=== PATIENT | female | born 1945 | race Caucasian/White ===

== ENCOUNTER 2017-10-18 01:10 | Inpatient (IN) ==
[2017-10-18] MEDS ORDERED: Gadolinium Contrast Agent (WT Based) IV PRN (03:38)
--- NOTE | 2017-10-18 03:40 | Event Note ---
Date of Encounter: 10/18/17 Time of Encounter: 03:40 Patient was seen and examined. I agree with the Resident Physician's H&P as written. Briefly, patient is a 72 yo f with history of CAD, HTN, CVA, COPD who presented to the ED at [place] [address] over the last 24 hours. First time left AMA and came back for persistent symptoms. Patient has been dealing with vague lower abdominal pain associated with n/v/diarrhea. In the ED there, she was hemodynamically stable but labs came back showing hyponatremia with Na of 125, K 2.5 and abnormal LFTs (ALT 955, AST 1669, Alk phos 258, total bili 7.7, direct bili 6.5), lipase 216, Creatinine .67, BUN 6, WBC 8, hgb 13,6, Plt 305 CT abd/pelvis with cont showed 2.7 x 17 cm mass arising from the superior portion of the right kidney, 1.1 x .8 cm mass arising from the posterior lateral aspect of he right kidney. Several small to moderately sized simple appearing cyst arising elsewhere within the kidneys bilaterally, 2.0 x 1.8 cm soft tissue mass lying anterior to splenic vein, 1.5 x 1.2 cm nodule lying in the left upper abdomen immediately posterior to the liver, several prominent lymph nodes in the abdomen, small bowel findings suspecting gastroenteritis, prominence of he endometrium of the uterus. The patient is A/O x3 but she doesnt seem to have a grasb of what is going on She is jaundiced and she doesn't think she is and has not noticed that she was RRR, S1, S2, right 2nd IC systolic murmur CTAB abdomen is soft, Not tender, No masses felt, +BS Trace LE edema, 2+DP Nonfocal Admit to hospitalist for abnormal LFTs/hyponatremia/hypokalmeia/abnormal CT. MRI abdomen liver/Renal protocol c/s GI c/s urology for renal mass check stool panel IVF. I think some of those abnormal electrolytes and transaminitis are due to a component of dehydration. Anti-emetics Check tumor markers (CEA, AFP, Ca 125, CA 19-9) Transvaginal US Repeat labs and replete electrolytes as needed ESR/CRP Hepatitis panel. tylenol level wasn't elevated at [facility].
--- NOTE | 2017-10-18 03:54 | Internal Med History&Physical ---
Date of Encounter: 10/18/17 Time of Encounter: 03:30 Internal Medicine - H&P: HPI Chief complaint: Nausea Admitted From: Intrahospital Transfer Plans for Post Hospital Care: Transfer [facility] Facility History of present illness: Ms. Thayer is a 72 year old female PMHx multiple cardiac caths, ASHD, bilateral ligation and division offallopian tubes, COPD, CVA, cataracts, cholecystectomy, diverticulitis, GERD, HTN, [place], PND presented to [facility] for worsening nausea. She had denied f/c/v/diarrhea, constipation, CP, SOB, dysuria. Lab work demonsrated elevated hepatic transaminases, bilirubin, hyponatremia, hypokalemia. A CT abd and pelvis demonstrated multiple renal masses and soft tissue masses in the abdomen, also possible viral gasroenteritis. MRI of kidneys was recommended for further evaluation.There was also prominence of the endometrium and ultrasound for further evaluation was needed. Patient was transferred to [facility] for further eval and testing. She currently states that her nausea has improved. She reports that she is asymptomatic, denied QUIROGA, CP, SOB, f/c/n/v/d/c. Denied weakness or loss of sensation. Reports that she has never had hepatitis in the past. Confirms PMHx. Patient has poor insight. Past Med Surg Social Fam HX - Family History Mother Hx Family Cardiac Disorders: Yes Father Hx Family Cardiac Disorders: Yes Internal Medicine - H&P: Meds 3 Allergy/AdvReac Type Severity Reaction Status Date / Time codeine AdvReac Rash Verified 10/18/17 05:33 All Systems PM: A 10-system review of systems was performed and is negative for pertinent findings except as documented above in the HPI. - Constitutional Constitutional: no chills, no fever(s), no night sweats - EENT Eyes: no change in vision, no discharge, no pain, no photophobia Ears: no ear discharge, no ear pain, no tinnitus Nose, mouth and throat: no dysphagia, no nasal discharge, no neck pain, no sore throat - Cardiovascular Cardiovascular ROS IM: no chest pain, no palpitations - Respiratory Respiratory: no cough, no dyspnea, no wheezing, no excessive phlegm production - Gastrointestinal Gastrointestinal: nausea, no abdominal pain, no diarrhea, no hematemesis, no hematochezia, no melena, no vomiting - Genitourinary Genitourinary: no change in urinary stream, no dysuria, no flank pain, no hematuria - Musculoskeletal Musculoskeletal ROS IM: no numbness, no tingling - Integumentary Integumentary IM: no rash, no unusual bruising - Neurological Neurological ROS: no confusion, no convulsions, no focal weakness, no numbness, no tingling, no tremor(s) - Psychiatric Psychiatric: no hallucinations Additional comments: poor insight. - Hematologic/Lymphatic Hematologic/Lymphatic: no easy bruising - Constitutional Vitals: Temp Pulse Resp BP Pulse Ox 98.7 F 78 16 117/64 96 10/18/17 03:44 10/18/17 03:44 10/18/17 03:44 10/18/17 03:44 10/18/17 03:44 General appearance: Present: cachectic, A&O X 3, no acute distress - Head Head exam: Present: atraumatic, normocephalic - Eye Eye exam: Present: scleral icterus, conjuntiva pink, sclera anicteric - Neck Neck exam general surgery: Present: supple, trachea midline. Absent: lymphadenopathy - Respiratory Respiratory exam: Present: decreased breath sounds. Absent: accessory muscle use, rales, rhonchi, wheezes - Cardiovascular Cardiovascular exam: Present: distant heart sounds, +S1, +S2, systolic murmur. Absent: diastolic murmur, gallop, rubs - GI/Abdominal GI/Abdominal exam: Present: hypoactive bowel sounds, normal bowel sounds, soft, no peritoneal signs. Absent: distended, tenderness - Extremities Exam Extremities exam: Present: warm, radial pulses palpable and symmetrical. Absent : calf tenderness, cyanotic, pedal edema - Neurological Exam Neurological exam: Present: oriented X3, reflexes normal, no focal deficits, strengths equal and symetr throughout. Absent: pronater drift, facial droop, speech deficit - Psychiatric Additional comments: Poor insight - Skin Skin exam: Present: dry, intact Additional comments: jaundice Internal Med - H&P Results - Labs CBC & Chem 7: 10/18/17 04:13 - Assessment and plan (1) Nausea Current Visit: Yes Status: Acute Assessment and plan: 72F with multiple visits to ED for nausea. Hx of HTN, CVA, CAD. CT with cystic findings on right kidney, soft tissue mass lying on anterior splenic vein, nodule at left upper abdomen posterior to the liver, abdominal lymph nodes, prominent uterus. CBC, CMP, hep panel, CRP/ESR, GI panel pending. GI consult, Urology consult pending. MRI abdomen w/wo contrast and transvaginal u/s pending for further evaluation Tumor markers pending Continue IVF and NPO for now Pain management as appropriate. (2) Abnormal CT of the abdomen Current Visit: Yes Status: Acute Assessment and plan: CT abd/pelvis with cont showed 2.7 x 17 cm mass arising from the superior portion of the right kidney, 1.1 x .8 cm mass arising from the posterior lateral aspect of he right kidney. Several small to moderately sized simple appearing cyst arising elsewhere within the kidneys bilaterally, 2.0 x 1.8 cm soft tissue mass lying anterior to splenic vein, 1.5 x 1.2 cm nodule lying in the left upper abdomen immediately posterior to the liver, several prominent lymph nodes in the abdomen, small bowel findings suspecting gastroenteritis, prominence of the endometrium of the uterus. Pending Urology and GI consult. Recommendations appreciated. (3) Transaminitis Current Visit: Yes Status: Acute Assessment and plan: Patient is jaundice with scleral icterus. Possibly due to dehydration vs malignancy. Pending lab work and imaging. Monitor with CMP and continue IVF Treat per above. (4) HTN (hypertension) Current Visit: Yes Status: Acute Assessment and plan: Continue medication when available Qualifiers: Qualified Code(s): I10 - Essential (primary) hypertension (5) CAD (coronary artery disease) Current Visit: Yes Status: Acute Assessment and plan: History of [place] with multiple cardiac caths. Reconcile home medications when available Qualifiers: Coronary Disease-Associated Artery/Lesion type: unspecified vessel or lesion type Associated angina: angina presence unspecified Qualified Code(s): I25.10 - Atherosclerotic heart disease of [place] coronary artery without angina pectoris (6) History of CVA (cerebrovascular accident) Current Visit: Yes Status: Acute Assessment and plan: Reconcile home Plavix as appropriate when lab work returns. (7) Hyponatremia Current Visit: Yes Status: Acute Assessment and plan: Reported hyponatremia from [facility]. Pending AM Labs with serum osm to confirm. Continue IVF (8) Hypokalemia Current Visit: Yes Status: Acute Assessment and plan: same as above (9) DVT prophylaxis Current Visit: Yes Status: Acute Assessment and plan: SCDs - Time Spent With Patient Total time spent is greater than 50% in coordination of care (as documented) at patient's floor/unit and/or counseling patient: Greater than 35 minutes
[2017-10-18] MEDS ORDERED: Ondansetron 4 MG/2 ML VIAL IVP PRN (04:35)
[2017-10-18] MEDS ORDERED: Acetaminophen 325 MG TABLET PO PRN (04:37)
[2017-10-18] MEDS ORDERED: Naloxone 0.4 MG/ML INJ IVP PRN (04:37)
[2017-10-18] MEDS ORDERED: 0.9 % Sodium Chloride 1,000 ML IVC SCH (04:45)
[2017-10-18 05:05] LABS: Basophils % 0.6 %; Eosinophils # 0.1 K/mcL (0.0-0.6); Eosinophils % 1.3 %; Hematocrit 34.4 % (35.3-44.9); Hemoglobin 12.6 g/dL (11.5-15.4); Immature Granulocytes % 0.6 % (0-4); Lymphocytes # 1.3 K/mcL (0.6-4.6); Lymphocytes % 19.7 %; Mean Corpuscular HGB Conc 36.6 g/dL (31.6-35.5); Mean Corpuscular Hemoglobin 31.5 pg (28.0-33.3); Mean Platelet Volume 10.3 fL (9.4-12.4); Monocytes # 0.6 K/mcL (0.0-1.3); Monocytes % 9.5 %; Neutrophils # 4.6 K/mcL (1.6-8.9); Platelet Count 288 K/mcL (140-400); Red Cell Distribution Width 15.4 % (11.5-14.5); Segmented Neutrophils % 68.3 %
[2017-10-18 05:06] LABS: INR 1.2; Prothrombin Time 13.4 Seconds (9.4-12.1)
[2017-10-18 05:09] LABS: Activated Partial Thrombo Time 29.2 Seconds (26.0-36.0)
[2017-10-18 05:38] LABS: Alanine Aminotransferase > 500 Units/L (7-52); Albumin 2.7 g/dL (3.5-5.7); Albumin/Globulin Ratio 0.6 (1.1-2.2); Alkaline Phosphatase 202 Units/L (34-104); Aspartate Amino Transferase 965 Units/L (13-39); BUN/Creatinine Ratio 8 (6-26); Bilirubin,Direct 5.5 mg/dL (0.0-0.2); Bilirubin,Indirect 1.7 mg/dL (0.0-1.2); Bilirubin,Total 7.2 mg/dL (0.3-1.0); Blood Urea Nitrogen 4 mg/dL (8-23); C-Reactive Protein 12 mg/L (Less than 10); Calcium 7.9 mg/dL (8.6-10.3); Carbon Dioxide 28 mEq/L (23-29); Chloride 94 mEq/L (98-107); Globulin 4.2 g/dL (2.4-3.5); Glucose 105 mg/dL (70-105); Osmolality,Calculated 263 (280-300); Potassium 2.6 mEq/L (3.5-5.1); Sodium 128 mEq/L (136-145); Total Protein 6.9 g/dL (6.4-8.9); eGFR For African Americans > 60 (> 60); eGFR For Non-African Americans > 60 (> 60)
[2017-10-18 05:41] LABS: Carcinoembryonic Antigen 1.8 ng/mL (Less than 5.0)
[2017-10-18 06:35] LABS: Hepatitis A Antibody IgM Nonreactive (Nonreactive); Hepatitis B Core IgM Nonreactive (Nonreactive); Hepatitis B Surface Antigen Nonreactive (Nonreactive); Hepatitis C Virus Antibody Nonreactive (Nonreactive)
[2017-10-18] MEDS: 0.9 % Sodium Chloride 1,000 ML IVC SCH ×2 (06:48→14:36)
[2017-10-18] MEDS ORDERED: Potassium Chloride 40 MEQ, Lidocaine 1% 2 ML in D5% in Water 500 ML IVPB ONE ×2 (06:53→17:21)
[2017-10-18] MEDS: amLODIPine 5 MG TABLET PO SCH (08:33)
[2017-10-18] MEDS: clonazePAM 0.5 MG TABLET PO SCH ×2 (08:33→23:05)
--- NOTE | 2017-10-18 10:30 | Urology - Consult Note ---
Date of Encounter: 10/18/17 Time of Encounter: 10:29 - Assessment and Plan (1) Bilateral renal masses Current Visit: Yes Status: Acute Assessment and plan: I personally reviewed the CT images provided from the outside facility. The study was performed with IV contrast but did not have non-contrast images for comparison and assessment for enhancement. In addition there were multiple renal cysts which appeared simple. The lesions mentioned on the CT report were seen but I am not convinced at this time that they are collections representative of malignancy. I agree with the recommendation for an MRI with and without IV contrast. This appears to have been ordered. Further recommendations will be provided once this is completed. Urology CN:HPI Consult date: 10/18/17 History of present illness: 72-year-old female transferred from [facility]. hx multiple cardiac caths , ASHD, COPD, CVA, cataracts, cholecystectomy, diverticulitis, GERD, HTN, [place], PND presented to [facility] for worsening nausea. CT scan was performed that showed questionable bilateral renal masses. Patient has no known knowledge of these lesions. Poor historian. Past Med Surg Social Fam HX - Past Medical History Medical history: COPD, CVA, hyperlipidemia, hypertension Psychiatric history: no psych history - Social History Smoking Status: Former smoker Smokeless Tobacco Status: No Alcohol use: none Drug use: none - Family History Mother Hx Family Cardiac Disorders: Yes Father Hx Family Cardiac Disorders: Yes Medications and Allergies Atenolol [Tenormin] 12.5 mg PO DAILY 10/18/17 [History] Atorvastatin [Lipitor] 40 mg PO HS 10/18/17 [History] Chlorthalidone 25 mg PO DAILY 10/18/17 [History] Clopidogrel [Plavix] 75 mg PO DAILY 10/18/17 [History] Loratadine [Allergy Relief] 10 mg PO DAILY 10/18/17 [History] Magnesium Oxide [Magnesium] 250 mg PO DAILY 10/18/17 [History] Nitroglycerin [Nitrostat] 0.4 mg SL Q5M PRN 10/18/17 [History] Potassium Chloride [K-Tab ER] 20 meq PO BID 10/18/17 [History] amLODIPine [Norvasc] 5 mg PO DAILY 10/18/17 [History] clonazePAM [Klonopin] 1 mg PO BID 10/18/17 [History] 3 Allergy/AdvReac Type Severity Reaction Status Date / Time codeine AdvReac Rash Verified 10/18/17 05:33 Review of Systems ROS unobtainable: due to mental status - Constitutional no fever(s) - Gastrointestinal nausea, no abdominal pain - Genitourinary Genitourinary: no hematuria Exam Initial Vital Signs Temp Pulse Resp BP Pulse Ox 98.7 F 78 16 117/64 96 10/18/17 03:44 10/18/17 03:44 10/18/17 03:44 10/18/17 03:44 10/18/17 03:44 - General physical appearance Present: no distress, chronically ill - Eyes Present: PERRL, normal ocular movement - ENT Present: normal nares - Neck Present: no masses, no lymphadenopathy - Respiratory Present: normal respiratory effort - Cardiovascular Cardiovascular exam IM: RRR - Abdomen Abdomen: Present: soft. Absent: masses, suprapubic tenderness - Integumentary Present: no rash, no abnormal pigmentation - Neurologic Present: normal coordination, disoriented - Additional Findings Patient seems to be poor historian. Unable to provide a detailed history regarding current issue. Able to state her name but not the current date. Urology Results - Labs 10/18/17 04:13 10/18/17 04:13 Abnormal lab results Hct 34.4 % (35.3-44.9) L 10/18/17 04:13 MCHC 36.6 g/dL (31.6-35.5) H 10/18/17 04:13 RDW 15.4 % (11.5-14.5) H 10/18/17 04:13 ESR 24 mm/hr (0-15) H 10/18/17 04:13 PT 13.4 Seconds (9.4-12.1) H 10/18/17 04:13 Sodium 128 mEq/L (136-145) L 10/18/17 04:13 Potassium 2.6 mEq/L (3.5-5.1) L 10/18/17 04:13 Chloride 94 mEq/L (98-107) L 10/18/17 04:13 BUN 4 mg/dL (8-23) L 10/18/17 04:13 Creatinine 0.50 mg/dL (0.60-1.20) L 10/18/17 04:13 Serum Osmolality 267 mOsm/kg (280-300) L 10/18/17 05:38 Calculated Osmolality 263 (280-300) L 10/18/17 04:13 Calcium 7.9 mg/dL (8.6-10.3) L 10/18/17 04:13 Total Bilirubin 7.2 mg/dL (0.3-1.0) H 10/18/17 04:13 Direct Bilirubin 5.5 mg/dL (0.0-0.2) H 10/18/17 04:13 Indirect Bilirubin 1.7 mg/dL (0.0-1.2) H 10/18/17 04:13 AST 965 Units/L (13-39) H 10/18/17 04:13 ALT > 500 Units/L (7-52) H 10/18/17 04:13 Alkaline Phosphatase 202 Units/L (34-104) H 10/18/17 04:13 C-Reactive Protein 12 mg/L (Less than 10) H 10/18/17 04:13 Albumin 2.7 g/dL (3.5-5.7) L 10/18/17 04:13 Globulin 4.2 g/dL (2.4-3.5) H 10/18/17 04:13 Albumin/Globulin Ratio 0.6 (1.1-2.2) L 10/18/17 04:13 Diabetes panel 10/18/17 Range/Units 04:13 Sodium 128 L (136-145) mEq/L Potassium 2.6 L (3.5-5.1) mEq/L Chloride 94 L (98-107) mEq/L Carbon Dioxide 28 (23-29) mEq/L BUN 4 L (8-23) mg/dL Creatinine 0.50 L (0.60-1.20) mg/dL Glucose 105 (70-105) mg/dL Calcium 7.9 L (8.6-10.3) mg/dL AST 965 H (13-39) Units/L ALT > 500 H (7-52) Units/L Alkaline Phosphatase 202 H (34-104) Units/L Albumin 2.7 L (3.5-5.7) g/dL Calcium panel 10/18/17 Range/Units 04:13 Calcium 7.9 L (8.6-10.3) mg/dL Albumin 2.7 L (3.5-5.7) g/dL Pituitary panel 10/18/17 Range/Units 04:13 Sodium 128 L (136-145) mEq/L Potassium 2.6 L (3.5-5.1) mEq/L Chloride 94 L (98-107) mEq/L Carbon Dioxide 28 (23-29) mEq/L BUN 4 L (8-23) mg/dL Creatinine 0.50 L (0.60-1.20) mg/dL Glucose 105 (70-105) mg/dL Calcium 7.9 L (8.6-10.3) mg/dL Adrenal panel 10/18/17 Range/Units 04:13 Sodium 128 L (136-145) mEq/L Potassium 2.6 L (3.5-5.1) mEq/L Chloride 94 L (98-107) mEq/L Carbon Dioxide 28 (23-29) mEq/L BUN 4 L (8-23) mg/dL Creatinine 0.50 L (0.60-1.20) mg/dL Glucose 105 (70-105) mg/dL Calcium 7.9 L (8.6-10.3) mg/dL Total Bilirubin 7.2 H (0.3-1.0) mg/dL AST 965 H (13-39) Units/L ALT > 500 H (7-52) Units/L Alkaline Phosphatase 202 H (34-104) Units/L Albumin 2.7 L (3.5-5.7) g/dL All other labs normal. Consult Discharge Plan - Plan Referrals: NONE,PCP [Primary Care Provider] -
--- NOTE | 2017-10-18 12:58 | Gastroenterology Consult Note ---
<Lucrecia Crump - Last Filed: 10/18/17 12:56> Date of Encounter: 10/18/17 Time of Encounter: 11:30 - Assessment and plan (1) Transaminitis Current Visit: Yes Status: Acute Assessment and plan: 72 year old female who presented with nausea and vomiting. She reports nausea is improved. She had CT abdomen which showed renal masses and soft tissue masses in the abdomen. She also has jaundice and elevated LFTs. She may have metastatic renal cancer with biliary obstruction. MRI abdomen is pending. Will discuss further recommendations with Dr Vann when MRi is resulted. - Time Spent With Patient Total time spent is greater than 50% in coordination of care (as documented) at patient's floor/unit and/or counseling patient: GI History of Present Illness - Data of Consult Patient: new to practice Consult date: 10/18/17 Requesting Physician: Kanu Palma - Consult Narrative Reason for consult: jaundice, elevated LFTs History of present illness: Ms. Thayer is a 72 year old female PMHx multiple cardiac caths, ASHD, COPD, CVA , cataracts, cholecystectomy, diverticulitis, GERD, HTN, [place], PND presented to [facility] for worsening nausea. She states nausea is now improved. She denies abdominal pain, diarrhea, constipation. States she has not had a BR since being admitted. She denies weight loss or noticing jaundice at home. She denies previous history of liver disease, ETOH, drug use. She states she takes tylenol only on occasion. She was found to be jaundice on exam, LFTs were elevated and t bili was 7.2. A CT abd and pelvis demonstrated multiple renal masses and soft tissue masses in the abdomen, also possible viral gasroenteritis. MRI of kidneys was recommended for further evaluation.There was also prominence of the endometrium and ultrasound for further evaluation was needed. Patient was transferred to [facility] for further eval and testing.Denied weakness or loss of sensation. Reports that she has never had hepatitis in the past. Confirms PMHx. Patient has poor insight. procedures: denies NSAIDS: denies Anticoagulants: plavix Past Med Surg Social Fam HX - Past Medical History Medical history: COPD, CVA, hyperlipidemia, hypertension Psychiatric history: no psych history - Social History Smoking Status: Former smoker Smokeless Tobacco Status: No Alcohol use: none Drug use: none - Family History Mother Hx Family Cardiac Disorders: Yes Father Hx Family Cardiac Disorders: Yes Review of Systems: GI: as per [place] [facility]: denies fever, has some chills EYES: denies yellow discoloration ENT: denies pain with swallowing or difficulty swallowing CARDIO: denies chest pain, palpitations RESP: Shortness of breath with exertion : denies change in color of urine NEURO: denies any weakness HEME: Denies any bruising MS: denies joint pain, joint swelling or back pain. DERM: denies rash or itching PSYCH: Denies history of anxiety or depression - Constitutional Vitals: Temp Pulse Resp BP Pulse Ox 97.9 F 76 18 103/61 96 10/18/17 11:43 10/18/17 11:43 10/18/17 11:43 10/18/17 11:43 10/18/17 11:43 Exam: CONSTITUTIONAL:~alert, no acute distress.~HEAD:~normocephalic.~EYES:~jaundice.~ NECK:~no obvious swelling.~HEART:~regular rate and rhythm, no murmurs.~LUNGS:~ bilateral fair air entry.~ABDOMEN:~non distended, soft, non tender, no masses palpable, no organomegaly.~RECTAL EXAM:~Deferred.~EXTREMITIES:~no clubbing, cyanosis, trace BLE edema.~SKIN:~jaundice noted.~NEUROLOGIC:~no obvious focal defect.~~~~ Results - Labs CBC & Chem 7: 10/18/17 04:13 10/18/17 04:13 Labs: Last Result ESR 24 mm/hr (0-15) H 10/18/17 04:13 Calcium 7.9 mg/dL (8.6-10.3) L 10/18/17 04:13 C-Reactive Protein 12 mg/L (Less than 10) H 10/18/17 04:13 Entire Visit Hgb 12.6 g/dL (11.5-15.4) 10/18/17 04:13 Hct 34.4 % (35.3-44.9) L 10/18/17 04:13 PT 13.4 Seconds (9.4-12.1) H 10/18/17 04:13 Total Bilirubin 7.2 mg/dL (0.3-1.0) H 10/18/17 04:13 AST 965 Units/L (13-39) H 10/18/17 04:13 ALT > 500 Units/L (7-52) H 10/18/17 04:13 Carcinoembryonic Ag 1.8 ng/mL (Less than 5.0) 10/18/17 04:13 CA 125 Ag Serial Mntr 33 U/mL (Less than 35) 10/18/17 04:13 - ABG ABG results: PT/INR, D-dimer PT 13.4 Seconds (9.4-12.1) H 10/18/17 04:13 - Impressions Impressions Abdomen MRI 10/18/17 03:38 IMPRESSION: 1. Hepatomegaly with at least mild steatosis. 2. 1 cm left hepatic cyst. 3. Complicated right renal cysts and simple bilateral renal cysts. No suspicious renal lesion although motion artifact slightly limits evaluation. D/ / Brad Domingo MD / Brad Domingo MD Interpreting Provider: Brad Domingo MD Consult Discharge Plan - Plan Referrals: NONE,PCP [Primary Care Provider] - <Stef Vann - Last Filed: 10/18/17 16:31> Date of Encounter: 10/18/17 Time of Encounter: 16:30 - Time Spent With Patient Total time spent is greater than 50% in coordination of care (as documented) at patient's floor/unit and/or counseling patient: GI History of Present Illness - Data of Consult Requesting Physician: Kanu Palma - Consult Narrative History of present illness: Ms. Thayer is a 72 year old female - Constitutional Vitals: Temp Pulse Resp BP Pulse Ox 97.9 F 76 18 103/61 96 10/18/17 11:43 10/18/17 11:43 10/18/17 11:43 10/18/17 11:43 10/18/17 11:43 Results - Labs CBC & Chem 7: 10/18/17 04:13 10/18/17 04:13 Labs: Last Result ESR 24 mm/hr (0-15) H 10/18/17 04:13 Calcium 7.9 mg/dL (8.6-10.3) L 10/18/17 04:13 C-Reactive Protein 12 mg/L (Less than 10) H 10/18/17 04:13 Entire Visit Hgb 12.6 g/dL (11.5-15.4) 10/18/17 04:13 Hct 34.4 % (35.3-44.9) L 10/18/17 04:13 PT 13.4 Seconds (9.4-12.1) H 10/18/17 04:13 Total Bilirubin 7.2 mg/dL (0.3-1.0) H 10/18/17 04:13 AST 965 Units/L (13-39) H 10/18/17 04:13 ALT > 500 Units/L (7-52) H 10/18/17 04:13 Ammonia 58 mcmol/L (16-53) H 10/18/17 12:43 Carcinoembryonic Ag 1.8 ng/mL (Less than 5.0) 10/18/17 04:13 CA 125 Ag Serial Mntr 33 U/mL (Less than 35) 10/18/17 04:13 - ABG ABG results: PT/INR, D-dimer PT 13.4 Seconds (9.4-12.1) H 10/18/17 04:13 - Impressions Impressions Abdomen MRI 10/18/17 03:38 IMPRESSION: 1. Hepatomegaly with at least mild steatosis. 2. 1 cm left hepatic cyst. 3. Complicated right renal cysts and simple bilateral renal cysts. No suspicious renal lesion although motion artifact slightly limits evaluation. D/ / Brad Domingo MD / Brad Domingo MD Interpreting Provider: Brad Domingo MD - Attending Attestation I have personally performed a face to face evaluation on this patient. I have reviewed and agree with the care plan. History and Exam by me shows: Pt seen patient with the elevated liver number, no abdominal pain . MRI and CAT scan are negative for any biliary obstruction. Rec: We will do workup for her elevated LFTs meanwhile we will just watch them there is no need for any intervention
--- NOTE | 2017-10-18 16:21 | Event Note ---
Date of Encounter: 10/18/17 Time of Encounter: 16:19 I reviewed MRI report and images. no enhancement seen. no urologic intervention required. From standpoint, ok to observe and reimage in 12 months.
[2017-10-18 16:33] LABS: Potassium 2.8 mEq/L (3.5-5.1)
--- NOTE | 2017-10-18 19:09 | Event Note ---
Date of Encounter: 10/18/17 Time of Encounter: 11:00 Patient seen and evaluated by nocturnalist earlier this morning and also by myself Patient found to have transaminitis and GI consulted for recommendations Patient also with renal masses a urology consult for recommendations
--- NOTE | 2017-10-18 20:40 | Electrocardiograph Report ---
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
[2017-10-19 07:12] LABS: Basophils # 0.1 K/mcL (0.0-0.2); Basophils % 1.2 %; Eosinophils # 0.2 K/mcL (0.0-0.6); Eosinophils % 3.3 %; Hematocrit 32.9 % (35.3-44.9); Hemoglobin 11.7 g/dL (11.5-15.4); Immature Granulocytes % 0.6 % (0-4); Lymphocytes # 0.9 K/mcL (0.6-4.6); Mean Corpuscular HGB Conc 35.6 g/dL (31.6-35.5); Mean Corpuscular Hemoglobin 30.2 pg (28.0-33.3); Mean Platelet Volume 10.2 fL (9.4-12.4); Monocytes # 0.6 K/mcL (0.0-1.3); Monocytes % 12.4 %; Neutrophils # 3.4 K/mcL (1.6-8.9); Platelet Count 243 K/mcL (140-400); Red Blood Count 3.87 M/mcL (3.82-4.97); Red Cell Distribution Width 15.9 % (11.5-14.5); Segmented Neutrophils % 64.5 %
[2017-10-19 07:25] LABS: Alanine Aminotransferase 472 Units/L (7-52); Albumin 2.5 g/dL (3.5-5.7); Albumin/Globulin Ratio 0.7 (1.1-2.2); Alkaline Phosphatase 195 Units/L (34-104); Aspartate Amino Transferase 759 Units/L (13-39); BUN/Creatinine Ratio 5 (6-26); Bilirubin,Total 8.7 mg/dL (0.3-1.0); Blood Urea Nitrogen 2 mg/dL (8-23); Calcium 7.9 mg/dL (8.6-10.3); Carbon Dioxide 26 mEq/L (23-29); Chloride 97 mEq/L (98-107); Globulin 3.5 g/dL (2.4-3.5); Glucose 91 mg/dL (70-105); Osmolality,Calculated 262 (280-300); Potassium 3.2 mEq/L (3.5-5.1); Sodium 128 mEq/L (136-145); eGFR For African Americans > 60 (> 60); eGFR For Non-African Americans > 60 (> 60)
[2017-10-19] MEDS: amLODIPine 5 MG TABLET PO SCH (09:00)
[2017-10-19] MEDS: clonazePAM 0.5 MG TABLET PO SCH (09:00)
[2017-10-19 16:58] VITALS: BP 120/71
--- NOTE | 2017-10-19 17:34 | Discharge Summary ---
- NOTES TO OUTPATIENT PROVIDER Notes to Outpatient Provider: Patient to follow-up with GI for elevated transaminases and to reimage abdomen/pelvis in 1 year to monitor renal cyst Orders not resulted at time of discharge: Pending orders 10/18/17 04:13 Cancer Antigen-GI (CA 19-9) Stat 10/18/17 05:38 AFP Tumor Marker Non- Stat 10/18/17 15:59 LIBBY IgG JASMIN rflx IFA Routine Alpha-1-AT Deficiency Reflex Routine Celiac Disease Reflex Rhame Routine Ceruloplasmin Routine F-Actin IgG Reflex Sm Muscle Routine IgG Subclasses 1,2,3,4 Routine MPO/PR3 (ANCA) Antibodies Routine Mitochondrial M2 Antibody, IgG Routine Protein Electrophoresis Routine Saccharomyces cerevisiae Abs Routine Date of Encounter: 10/19/17 Time of Encounter: 11:00 - Discharge Diagnosis (1) Transaminitis Priority: Primary Status: Acute (2) Abnormal CT of the abdomen Priority: Secondary Status: Acute (3) HTN (hypertension) Priority: Secondary Status: Acute Qualifiers: Hypertension type: unspecified Qualified Code(s): I10 - Essential (primary ) hypertension (4) CAD (coronary artery disease) Priority: Secondary Status: Acute Qualifiers: Coronary Disease-Associated Artery/Lesion type: unspecified vessel or lesion type Associated angina: angina presence unspecified Qualified Code(s): I25.10 - Atherosclerotic heart disease of camp[place] coronary artery without angina pectoris (5) History of CVA (cerebrovascular accident) Priority: Secondary Status: Acute (6) Nausea Priority: Secondary Status: Acute (7) Hyponatremia Priority: Secondary Status: Acute (8) Hypokalemia Priority: Secondary Status: Acute Hospital course: Patient is a 72-year-old female with past medical history significant for multiple cardiac caths, ASHD, COPD, CVA, HTN, DC, PND who presented to [facility] for worsening nausea. Patient was later transferred to [facility] for further management. During patients hospital stay imaging of abdomen/pelvis showed hepatomegaly in addition to right renal cyst and simple bilateral renal cyst. Urology was consulted with recommendations to reimage in approximately 12 months. She was also found to have elevated transaminases and GI was consulted with recommendations for workup as an outpatient. Patient will be discharged to follow-up with GI as outpatient. - Time Spent with Patient Total time spent providing and/or coordinating discharge services: Less than 30 minutes - Discharge Medications Home Medications: Atenolol [Tenormin] 12.5 mg PO DAILY 10/18/17 [History] Atorvastatin [Lipitor] 40 mg PO HS 10/18/17 [History] Chlorthalidone 25 mg PO DAILY 10/18/17 [History] Clopidogrel [Plavix] 75 mg PO DAILY 10/18/17 [History] Loratadine [Allergy Relief] 10 mg PO DAILY 10/18/17 [History] Magnesium Oxide [Magnesium] 250 mg PO DAILY 10/18/17 [History] Nitroglycerin [Nitrostat] 0.4 mg SL Q5M PRN 10/18/17 [History] Potassium Chloride [K-Tab ER] 20 meq PO BID 10/18/17 [History] amLODIPine [Norvasc] 5 mg PO DAILY 10/18/17 [History] clonazePAM [Klonopin] 1 mg PO BID 10/18/17 [History] Allergies/Adverse Reactions: 3 Allergy/AdvReac Type Severity Reaction Status Date / Time codeine AdvReac Rash Verified 10/18/17 05:33 Date of admission: 10/18/17 03:38 Primary care physician: PCP NONE Consults: 10/18/17 04:32 Consult to Gastroenterology [CONS] Routine Consulting Provider: Gastroenterology Laura Reason for Consult: Jaundice. Abnormal CT with multiple cysts of right kidney , nodule in left upper abdomen Call Completed: No 10/18/17 05:26 Consult to Urology [CONS] Routine Consulting Provider: Urology Garvin Reason for Consult: Abnormal CT abd/pelvis with multiple renal cysts Call Completed: No - Constitutional Vitals: Temp Pulse Resp BP Pulse Ox 98.3 F 75 17 120/71 97 10/19/17 16:56 10/19/17 16:56 10/19/17 16:56 10/19/17 16:56 10/19/17 16:56 General appearance: Present: cachectic, A&O X 3, no acute distress - Cardiovascular Cardiovascular exam: Present: RRR, +S1, +S2. Absent: diastolic murmur, gallop, rubs, systolic murmur - GI/Abdominal GI/Abdominal exam: Present: normal bowel sounds, soft, no peritoneal signs. Absent: distended, tenderness - Patient Status Disposition: Home, Self-Care - Discharge Instructions Follow Up With: NONE,PCP [Primary Care Provider] -
[2017-10-21 22:02] LABS: Alpha 2 Globulin (PEP) 0.62 g/dL (0.48-1.05); Beta Globulin (PEP) 1.25 g/dL (0.48-1.10)
[2017-10-23 07:13] LABS: IFE Reflexed NOT DONE
[2017-10-23 07:15] LABS: ANA IgG by ELISA DETECTED (None Detected); Immunoglobulin A (CELIAC) 1040 mg/dL (68-408); Immunoglobulin G Subclass 1 981 mg/dL (240-1118); Immunoglobulin G Subclass 2 689 mg/dL (124-549); Immunoglobulin G Subclass 3 88 mg/dL (21-134); Immunoglobulin G Subclass 4 43 mg/dL (1-123); Myeloperoxidase Ab 0 AU/mL (0-19); Serine Protease-3 Antibody 1 AU/mL (0-19)
[2017-10-23 07:16] LABS: F-Actin (sm muscle) Ab IgG 68 Units (0-19); Tissue Transglutaminase IgA 1 U/mL (0-3)
[2017-10-23 09:45] LABS: Saccharomyces cerevisiae IgA 48.7 Units (0.0-24.9)
[2017-10-25 19:28] LABS: A1A SZ Specimen WHOLE BLOOD; Alpha-1-Antitrypsin S Allele NEGATIVE; Alpha-1-Antitrypsin Z Allele NEGATIVE
[2017-10-26 09:13] LABS: Alpha-1-Antitrypsin 177 mg/dL (90-200)
== END 2017-10-19 18:53 | disposition home or self-care (01) | DRG 468 ==
LOC: 2ANU → SUATTDRO 03:38
PROVIDERS: ADMIT Internal Medicine; ATTEND Hospitalist

== ENCOUNTER 2018-07-23 14:53 | Inpatient (IN) ==
--- NOTE | 2018-07-23 15:58 | Emergency Department Note ---
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 Patient states that she has had this for "quite some time". The patient was seen at [facility] emergency department last night and there were concerned about strangulate and so they were accepting this and the patient here to [facility] for further evaluation. At that time the patient refused transfer. The patient arrives to the emergency department with continued left lower quadrant abdominal pain and worsening and of the hernia. The patient is erythema that is overlying the left inguinal hernia. Patient denies any other complaints at this time. Pain Scale: 7 - Related Data Home Medications Medication Instructions Recorded Confirmed Atenolol [Tenormin] 25 mg PO DAILY 10/18/17 07/16/18 Atorvastatin [Lipitor] 40 mg PO HS 10/18/17 07/16/18 Clopidogrel [Plavix] 75 mg PO DAILY 10/18/17 07/16/18 Magnesium Oxide [Magnesium] 250 mg PO DAILY 10/18/17 07/16/18 Nitroglycerin [Nitrostat] 0.4 mg SL Q5M PRN 10/18/17 07/16/18 amLODIPine [Norvasc] 5 mg PO DAILY 10/18/17 07/16/18 clonazePAM [Klonopin] 1 mg PO BID 10/18/17 07/16/18 Potassium Chloride [K-Tab ER] 10 meq PO DAILY 07/16/18 07/16/18 Previous Rx's Medication Instructions Recorded OxyCODONE Immed Rel [Roxicodone 5 5 mg PO Q6-8H PRN 7 Days #28 tablet 07/17/18 MG] Allergies Allergy/AdvReac Type Severity Reaction Status Date / Time codeine AdvReac Nausea Verified 02/18/19 12:15 All systems ED: reviewed and negative except as stated. Constitutional: Reports: weakness. Denies: fever, chills ENT ED: Denies: dysphagia Cardiovascular: Denies: chest pain Respiratory: Denies: dyspnea Gastrointestinal: Reports: abdominal pain, nausea. Denies: vomiting, diarrhea, constipation, hematemesis, melena, hematochezia Genitourinary: Denies: urgency, dysuria Musculoskeletal: Denies: back pain Integumentary: Denies: rash Neurological: Denies: headache Abdominal Pain PMH - Past Medical History Medical history: Reports: COPD, CVA, hyperlipidemia, hypertension Female Surgical History: Reports: orthopedic, other Psychiatric history: Reports: no psych history - Social History Smoking status: Current some day smoker Alcohol use: Reports: none Drug use: Reports: none Physical Exam - General Limitations: no limitations General appearance: alert, in no apparent distress, cachectic - Head Head exam: atraumatic, normocephalic, normal inspection - Eye Eye exam: Present: normal appearance, PERRL, EOMI - ENT ENT exam: normal exam, normal oropharynx, mucous membranes moist - Neck Neck exam: Present: normal inspection - Chest Chest inspection: Present: normal inspection, symmetric chest wall rise - Respiratory Respiratory exam: Present: normal lung sounds bilaterally - Cardiovascular Cardiovascular exam: Present: regular rate, normal rhythm, normal heart sounds - Abdominal Exam Abdominal exam: Present: soft, tenderness (left LQ), hernia, other (Patient has a 3 cm area consistent with a left inguinal hernia with overlying erythema and pain on palpation.). Absent: distention, guarding, rebound, rigidity, San's sign, Rovsing's sign, tenderness at McBurney's Point - Extremities Exam Extremities exam: Present: normal inspection, full ROM. Absent: tenderness, pedal edema - Neurological Exam Neurological exam: Present: alert, oriented X3 - Skin Skin exam: Present: warm, dry, intact, normal color Course Vital Signs Temperature 98.6 F 07/23/18 15:17 Pulse Rate 83 07/23/18 15:17 Respiratory Rate 18 07/23/18 15:17 Blood Pressure 116/68 07/23/18 15:17 O2 Sat by Pulse Oximetry 98 07/23/18 15:17 Temperature 98.6 F 07/23/18 15:17 Pulse Rate 83 02/25/19 15:17 Respiratory Rate 18 07/23/18 15:17 Blood Pressure 116/68 07/23/18 15:17 O2 Sat by Pulse Oximetry 98 07/23/18 15:17 Oxygen Delivery Oxygen Delivery Room Air Abdominal Pain - MDM Narrative Medical decision making narrative: Patient's evaluation in the emergency department demonstrates concerning for strangulation versus incarceration of a left internal hernia. CT scan is concerning. Surgical consultation with Dr. Roland was performed. He will take the patient to the OR for surgery. The patient's lactic acid within normal limits. Vital signs remain within normal limits. No further questions or concerns noted - Lab Data Lab results reviewed: Yes I reviewed the patient's lab results. Result diagrams: 07/23/18 16:19 07/23/18 16:19 Lab Results 07/23/18 07/23/18 07/23/18 Range/Units 16:19 16:19 16:19 WBC 14.7 H (4.3-11.1) K/mcL RBC 4.56 (3.82-4.97) M/mcL Hgb 12.8 (11.5-15.4) g/dL Hct 38.7 (35.3-44.9) % MCV 84.9 (83.0-100.0) fL MCH 28.1 (28.0-33.3) pg MCHC 33.1 (31.6-35.5) g/dL RDW 14.0 (11.5-14.5) % Plt Count 348 (140-400) K/mcL MPV 9.0 L (9.4-12.4) fL Immature Gran % 0.7 (0-4) % Seg Neutrophils % 85.5 % Lymphocytes % 7.6 % Monocytes % 5.7 % Eosinophils % 0.1 % Basophils % 0.4 % Neutrophils # 12.6 H (1.6-8.9) K/mcL Lymphocytes # 1.1 (0.6-4.6) K/mcL Monocytes # 0.8 (0.0-1.3) K/mcL Eosinophils # 0.0 (0.0-0.6) K/mcL Basophils # 0.1 (0.0-0.2) K/mcL Platelet Estimate Normal (Normal) Sodium 131 L (136-145) mEq/L Potassium 3.4 L (3.5-5.1) mEq/L Chloride 96 L (98-107) mEq/L Carbon Dioxide 26 (23-29) mEq/L BUN 13 (8-23) mg/dL Creatinine 0.49 L (0.60-1.20) mg/dL Est GFR ( Amer) > 60 (> 60) Est GFR (Non-Af Amer) > 60 (> 60) BUN/Creatinine Ratio 27 H (6-26) Glucose 85 (70-105) mg/dL Calculated Osmolality 271 L (280-300) Lactic Acid 1.1 (0.5-2.2) mmol/L Calcium 9.3 (8.6-10.3) mg/dL Total Bilirubin 0.9 (0.3-1.0) mg/dL Direct Bilirubin 0.3 H (0.0-0.2) mg/dL Indirect Bilirubin 0.6 (0.0-1.2) mg/dL AST 12 L (13-39) Units/L ALT 4 L (7-52) Units/L Alkaline Phosphatase 115 H (34-104) Units/L Serum Total Protein 8.5 (6.4-8.9) g/dL Albumin 3.1 L (3.5-5.7) g/dL Globulin 5.4 H (2.4-3.5) g/dL Albumin/Globulin Ratio 0.6 L (1.1-2.2) - Radiology Data Radiology results reviewed: Yes I reviewed the patient's radiology results. Abdomen/Pelvis CT 07/23/18 17:15 IMPRESSION: Large left inguinal hernia containing a loop of colon, difficult to determine whether this is a loop of the sigmoid colon or the distal transverse low lying colon. There is focal dilation of colon in this location suggesting obstruction. Findings also concerning for strangulation given history of pain. Surgical consultation is recommended if not already performed. Additionally, delayed imaging with a CT of the abdomen and pelvis in 2 hours would be useful to evaluate for passage of the oral contrast. This could also re-evaluated whether the adjacent wall thickening in the sigmoid colon is due to collapse or colitis. Lesion of the superior pole right kidney increased in size concerning for malignancy. Follow-up is recommended. Consider urology consultation. Pre and post contrast renal mass protocol CT or MRI examination suggested. D/ / Colten Sanchez MD / Colten Sanchez MD Interpreting Provider: Colten Sanchez MD - EKG Data EKG attestation: Yes I reviewed and interpreted this EKG. EKG results narrative: Heart rate 81 beats for minute. Normal sinus rhythm. No ST elevation or ST depression noted. No acute changes noted. Attestation Statement - Attestation Attestation: Resident Attestation: I examined this patient and my medical decision making was reviewed with the Resident Physician. I agree with the documented findings, disposition and treatment plan as described except to the extent set forth below. We independently had [id number] contact with the patient. Patient presented for evaluation of hernia. Patient was seen at outside emergency department yesterday and referred to Laura but patient refused. Patient presents with the swollen erythematous hernia to the left inguinal region. Concern for incarceration versus strain regulation. Old records will be at tended to be obtained however the patient will also go undergo further investigation secondary to continued worsening symptoms. Patient is cachectic appearing. Abdomen soft no specific tenderness to palpatio n left inguinal region with erythematous raised lesion with significant associated tenderness to palpation.
[2018-07-23] MEDS ORDERED: 0.9 % Sodium Chloride 1,000 ML IVC ONE (16:05)
[2018-07-23] MEDS ORDERED: Isovue-370 500 ML BOTTLE IVP ONE (16:05)
[2018-07-23] MEDS ORDERED: *HR* FentaNYL (PF) 100 MCG/2 ML VIAL IVP ONE (16:06)
[2018-07-23] MEDS ORDERED: Isovue-370 500 ML BOTTLE PO ONE (16:13)
[2018-07-23 16:52] LABS: Basophils # 0.1 K/mcL (0.0-0.2); Basophils % 0.4 %; Eosinophils % 0.1 %; Hematocrit 38.7 % (35.3-44.9); Hemoglobin 12.8 g/dL (11.5-15.4); Immature Granulocytes % 0.7 % (0-4); Lymphocytes # 1.1 K/mcL (0.6-4.6); Lymphocytes % 7.6 %; Mean Corpuscular HGB Conc 33.1 g/dL (31.6-35.5); Mean Corpuscular Hemoglobin 28.1 pg (28.0-33.3); Mean Corpuscular Volume 84.9 fL (83.0-100.0); Monocytes # 0.8 K/mcL (0.0-1.3); Monocytes % 5.7 %; Platelet Count 348 K/mcL (140-400); Red Blood Count 4.56 M/mcL (3.82-4.97); Segmented Neutrophils % 85.5 %
[2018-07-23 16:55] LABS: Alanine Aminotransferase 4 Units/L (7-52); Albumin 3.1 g/dL (3.5-5.7); Albumin/Globulin Ratio 0.6 (1.1-2.2); Alkaline Phosphatase 115 Units/L (34-104); Aspartate Amino Transferase 12 Units/L (13-39); BUN/Creatinine Ratio 27 (6-26); Bilirubin,Direct 0.3 mg/dL (0.0-0.2); Bilirubin,Indirect 0.6 mg/dL (0.0-1.2); Bilirubin,Total 0.9 mg/dL (0.3-1.0); Blood Urea Nitrogen 13 mg/dL (8-23); Calcium 9.3 mg/dL (8.6-10.3); Carbon Dioxide 26 mEq/L (23-29); Chloride 96 mEq/L (98-107); Globulin 5.4 g/dL (2.4-3.5); Glucose 85 mg/dL (70-105); Osmolality,Calculated 271 (280-300); Potassium 3.4 mEq/L (3.5-5.1); Sodium 131 mEq/L (136-145); Total Protein 8.5 g/dL (6.4-8.9); eGFR For Non-African Americans > 60 (> 60)
[2018-07-23 16:56] LABS: Neutrophils # 12.6 K/mcL (1.6-8.9)
[2018-07-23 17:27] LABS: Platelet Estimate Normal (Normal)
--- NOTE | 2018-07-23 19:54 | Anesthesia Evaluation PreOp ---
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: CVA (NO RESIDUAL) Other Medical History: Other (HYPOKALEMIA, HYPONATREMIA, HYPOCHLOREMIA) Anesthesia History: No Prior Anesthetic Complications, Past Anesthesia Alcohol Use: none Drug use: none Medications and Allergies Atenolol [Tenormin] 25 mg PO DAILY 10/18/17 [History] Atorvastatin [Lipitor] 40 mg PO DAILY 10/18/17 [History] Clopidogrel [Plavix] 75 mg PO DAILY 10/18/17 [History] Magnesium Oxide [Magnesium] 250 mg PO DAILY 10/18/17 [History] Nitroglycerin [Nitrostat] 0.4 mg SL Q5M PRN 10/18/17 [History] amLODIPine [Norvasc] 5 mg PO DAILY 10/18/17 [History] clonazePAM [Klonopin] 1 mg PO BID PRN 10/18/17 [History] Potassium Chloride [K-Tab ER] 10 meq PO DAILY 07/16/18 [History] Cholecalciferol (Vitamin D3) [Dialyvite Vitamin D] 5,000 unit PO DAILY 07/23/18 [History] Allergy/AdvReac Type Severity Reaction Status Date / Time codeine AdvReac Nausea Verified 07/16/18 12:15 - Meds/Allergy Pre-op Review Medications Reviewed: Yes Allergies Reviewed: Yes Beta Blockers on Current Med List: No Anesthesia Results - Labs 07/23/18 16:19 07/23/18 16:19 Anesthesia Exam Vital Signs/O2 Sat/Glucose, Most Recent Temp Pulse Resp BP Pulse Ox 98.6 F 79 17 107/59 100 07/23/18 15:17 07/23/18 19:32 07/23/18 19:32 07/23/18 19:32 07/23/18 19:32 Weight: 34 KG - BMI 13 NPO (# of Hours): >1700 - HEENT Mallampati: II Teeth: Edentulous Oral Opening: Greater than 3 - Cardiac Rhythm: Regular - Pulmonary Breath Sounds: bilateral Clear Respiratory Effort: Symmetrical Anesthesia Assess/Plan ASA Score: 4, E Anesthetic Plan: General Monitoring Plan: Standard Monitors Recovery Plan: PACU
[2018-07-23] MEDS ORDERED: Ringers Solution, Lactated 1,000 ML ONE (23:25)
[2018-07-23] MEDS ORDERED: Albuterol 2.5 MG/3 ML NEBULIZER IH ONE (23:45)
[2018-07-23] MEDS ORDERED: Albuterol 2.5 MG/3 ML NEBULIZER ONE (23:47)
[2018-07-24] MEDS ORDERED: *HR* Propofol 200 MG/20 ML VIAL IVP ONE (00:34)
[2018-07-24] MEDS ORDERED: *HR* FentaNYL (PF) 100 MCG/2 ML VIAL ONE (00:34)
[2018-07-24] MEDS ORDERED: *HR* Succinylcholine 200 MG/10 ML VIAL IVP ONE (00:36)
[2018-07-24] MEDS ORDERED: Lidocaine -MPF 2% 2 ML VIAL ONE (00:36)
[2018-07-24] MEDS ORDERED: Dexamethasone 4 MG/ML VIAL ONE (00:36)
[2018-07-24] MEDS ORDERED: *HR* PHENYLEPHRINE 1,000 MCG/10 ML SYRINGE IVP ONE (00:52)
[2018-07-24] MEDS ORDERED: *HR* Morphine 10 MG/ML VIAL ONE (01:05)
[2018-07-24] MEDS ORDERED: CefOXitin 1,000 MG VIAL ONE (01:20)
[2018-07-24] MEDS ORDERED: Piperacillin/Tazobactam 3.375 GM in 0.9 % Sodium Chloride Mini Bag 100 ML IVPB STA (01:23)
[2018-07-24] MEDS ORDERED: ceFAZolin 1,000 MG in 0.9 % Sodium Chloride Mini Bag 100 ML IVPB ONE (02:00)
[2018-07-24] MEDS ORDERED: *HR* Promethazine 25 MG/ML VIAL IVP PRN (02:03)
[2018-07-24] MEDS ORDERED: Albuterol 2.5 MG/3 ML NEBULIZER IH ONE (02:03)
[2018-07-24] MEDS ORDERED: *HR* OxyCODONE Immed Rel 5 MG TABLET PO PRN (02:03)
[2018-07-24] MEDS ORDERED: *HR* HYDROmorphone (PF) 1 MG/ML SYRINGE IVP PRN (02:03)
[2018-07-24] MEDS ORDERED: *HR* Rocuronium Bromide 50 MG/5 ML VIAL ONE (02:12)
[2018-07-24] MEDS ORDERED: CefOXitin 2,000 MG VIAL ONE (02:12)
[2018-07-24] MEDS ORDERED: Ondansetron 4 MG/2 ML VIAL ONE (02:12)
[2018-07-24] MEDS ORDERED: *HR* Magnesium Sulfate 1 GM/2 ML VIAL ONE (02:23)
[2018-07-24] MEDS ORDERED: Water for inj. (sterile) 20 ML IV ONE (02:24)
[2018-07-24] MEDS ORDERED: Neostigmine Methylsulfate 3 MG/3 ML SYRINGE ONE (03:16)
[2018-07-24] MEDS ORDERED: *HR* Nalbuphine 10 MG/ML AMPUL ONE (03:24)
[2018-07-24] MEDS ORDERED: Ringers Solution, Lactated 1,000 ML ONE (04:08)
--- NOTE | 2018-07-24 05:04 | Anesthesia Evaluation Post Op ---
Date of Encounter: 07/24/18 Time of Encounter: 04:38 - Discharge PostOp Status: Transfer Patient to floor (Patient's vital signs have been reviewed. Patient is stable postoperatively and has adequately recovered from anesthesia. Patient is determined to have stable airway patency and respiratory function including respiratory rate and oxygen saturation. Patient has a stable heart rate, blood pressure and adequate hydration. Patients mental status is acceptable. Patients temperature is appropriate. Pain and nausea are adequately controlled.) Anes Supervising Prov Stmt: Patient's blood pressure is below baseline, but in acceptable range. however, given the extent of the surgical procedure, and the patient's other comorbidities, it would be safer to admit patient to step-down unit for close monitoring.
--- NOTE | 2018-07-24 05:09 | Anesthesia Procedures ---
Date of Encounter: 07/24/18 Time of Encounter: 03:00 Procedures: Anesthesia - Nerve Block Procedure Date: 07/24/18 Time: 03:00 (2039-1000) Checklist: Correct Patient Identifier, Correct procedure Blood Thinner: Yes Monitor Applied: Other (Anesthesia monitors) Block Type: Other (Bilateral TAP) Ultrasound used: Yes Anatomy identified: Yes Visual spread of Local: Yes Needle: 22 x 50 mm Stimuplex Local: Other (0.25% Bupivacaine) Volume (cc): 30ml - 15 ml each side Complications: None/effective block Comments: Procedure converted from laparoscopic to exp laporotomy. Elected to perform TAP block for post op analgesia. Performed in OR at the end of surgery, before emergence from anesthesia.
[2018-07-24] MEDS ORDERED: *HR* Vasopressin 20 UNIT/ML VIAL ONE (05:21)
[2018-07-24] MEDS ORDERED: 0.9 % Sodium Chloride 1,000 ML IVC SCH (10:30)
[2018-07-24] MEDS: Piperacillin/Tazobactam 3.375 GM in 0.9 % Sodium Chloride Mini Bag 100 ML IVPB SCH ×2 (11:06→17:57)
[2018-07-24 11:07] LABS: Hematocrit 21.6 % (35.3-44.9); Mean Corpuscular HGB Conc 31.9 g/dL (31.6-35.5); Mean Corpuscular Hemoglobin 28.2 pg (28.0-33.3); Mean Corpuscular Volume 88.2 fL (83.0-100.0); Mean Platelet Volume 9.1 fL (9.4-12.4); Platelet Count 305 K/mcL (140-400); Red Blood Count 2.45 M/mcL (3.82-4.97)
[2018-07-24 11:17] LABS: Hemoglobin 6.9 g/dL (11.5-15.4)
[2018-07-24 11:21] LABS: Alanine Aminotransferase 3 Units/L (7-52); Albumin 2.1 g/dL (3.5-5.7); Albumin/Globulin Ratio 0.8 (1.1-2.2); Alkaline Phosphatase 57 Units/L (34-104); Aspartate Amino Transferase 9 Units/L (13-39); BUN/Creatinine Ratio 23 (6-26); Bilirubin,Total 0.8 mg/dL (0.3-1.0); Blood Urea Nitrogen 15 mg/dL (8-23); Calcium 8.6 mg/dL (8.6-10.3); Carbon Dioxide 21 mEq/L (23-29); Chloride 101 mEq/L (98-107); Globulin 2.8 g/dL (2.4-3.5); Glucose 108 mg/dL (70-105); Osmolality,Calculated 275 (280-300); Phosphorous 5.6 mg/dL (2.7-4.5); Potassium 4.2 mEq/L (3.5-5.1); Sodium 132 mEq/L (136-145); Total Protein 4.9 g/dL (6.4-8.9); eGFR For Non-African Americans > 60 (> 60)
[2018-07-24 11:34] LABS: Lymphocytes # 0.4 K/mcL (0.6-4.6); Neutrophils # 20.4 K/mcL (1.6-8.9); Platelet Estimate Normal (Normal)
--- NOTE | 2018-07-24 13:06 | General Surg History&Physical ---
Date of Encounter: 07/23/18 Time of Encounter: 18:30 Assessment and Plan (1) Inguinal hernia with incarceration Current Visit: Yes Status: Acute 72F h/o CVA in 2017 now with incarcerated, possible strangulated left inguinal hernia; patient need emergent evaluation and intervention in the OR; discussed with the patient the intent to reduce hernia, assess for resection and whether or not mesh placement is needed; patient expressed understanding and wished to continue admit pain control IVF hold plavix plan for OR for evaluation of her pathology The assessment and plan as outlined above was discussed with the patient and/or family members who expressed understanding and agreement. All questions were answered. History of Present Illness Chief complaint: left groin pain HPI: Ms. Thayer is a 72 year old female PMH significant for CVA currently on plavix, HTN who presents with a one week history of worsening abdominal pain localized to the left groin. The patient stated she noticed a bulge in her left groin about one week ago and it has progressively gotten worse. She was unaware of any skin discoloration. The pain is localized to the region, non radiating, worsening with manipulation, alleviated when sitting still. The patient reports that her last bowel movement and episode of flatus being earlier in the day (07/23). OF note, she was evaluated at an OSH on 07/22 and diagnosed with an incarcerated left inguinal hernia and possible obstruction. The patient elected not to pursue further treatment likely because she felt better. Within 24 hours she presents to [facility] for the same symptoms. CT scan was obtained here, which was reviewed and interpreted by me, revealed a large air fluid level and concern for obstruction at her left groin, concerning for an incarcerated inguinal hernia. skin coloration was noted which raised the concern for possible strangulation. Past Med Surg Social Fam HX - Past Medical History Medical history: COPD, CVA, hyperlipidemia, hypertension Additional medical history: Cardiac caths, CVA, Cholecystectomy,diverticulitis,Gerd,HTN, [place], Sinusitis Psychiatric history: no psych history - Past Surgical History Additional surgical history: Left hip sx, kyphoplasty - Social History Smoking Status: Current every day smoker Smokeless Tobacco Status: No Alcohol use: none Drug use: none - Family History Mother Hx Family Cardiac Disorders: Yes Father Hx Family Cardiac Disorders: Yes Medications and Allergies Atenolol [Tenormin] 25 mg PO DAILY 10/18/17 [History] Atorvastatin [Lipitor] 40 mg PO DAILY 10/18/17 [History] Clopidogrel [Plavix] 75 mg PO DAILY 10/18/17 [History] Magnesium Oxide [Magnesium] 250 mg PO DAILY 10/18/17 [History] Nitroglycerin [Nitrostat] 0.4 mg SL Q5M PRN 10/18/17 [History] amLODIPine [Norvasc] 5 mg PO DAILY 10/18/17 [History] clonazePAM [Klonopin] 1 mg PO BID PRN 10/18/17 [History] Potassium Chloride [K-Tab ER] 10 meq PO DAILY 07/16/18 [History] Cholecalciferol (Vitamin D3) [Dialyvite Vitamin D] 5,000 unit PO DAILY 07/23/18 [History] Allergy/AdvReac Type Severity Reaction Status Date / Time codeine AdvReac Nausea Verified 07/16/18 12:15 Review of Systems All systems PM: 12 point ROS negative besides HPI findings General Surgery Exam Initial Vital Signs Temp Pulse Resp BP Pulse Ox 98.6 F 83 18 116/68 98 07/23/18 15:17 07/23/18 15:17 07/23/18 15:17 07/23/18 15:17 07/23/18 15:17 - General physical appearance no distress, cachectic - Eyes normal ocular movement - ENT normocephalic - Neck trachea midline, no lymphadectomy - Respiratory normal expansion, normal respiratory effort - Cardiovascular Cardiovascular exam: Present: RRR - Abdomen Abdomen general surgery: Present: soft, tender Abdominal Tenderness: Present: LLQ (soft mass at left groin concern for hernia; overlying skin changes (mild erythema); ) - Integumentary Integumentary general surgery: Present: warm and dry - Neurologic Present: CN 2-12 grossly intact - Musculoskeletal Present: normal posture - Psychiatric Psychiatric general surgery: Present: A&Ox3 Results - Labs 07/24/18 10:47 07/24/18 10:47 Abnormal lab results WBC 20.8 K/mcL (4.3-11.1) H 07/24/18 10:47 RBC 2.45 M/mcL (3.82-4.97) L 07/24/18 10:47 Hgb 6.9 g/dL (11.5-15.4) L D 07/24/18 10:47 Hct 21.6 % (35.3-44.9) L 07/24/18 10:47 MPV 9.1 fL (9.4-12.4) L 07/24/18 10:47 Band Neutrophils % 42.0 % (0-4) H 07/24/18 10:47 Neutrophils # 20.4 K/mcL (1.6-8.9) H 07/24/18 10:47 Lymphocytes # 0.4 K/mcL (0.6-4.6) L 07/24/18 10:47 Sodium 132 mEq/L (136-145) L 07/24/18 10:47 Carbon Dioxide 21 mEq/L (23-29) L 07/24/18 10:47 Glucose 108 mg/dL (70-105) H 07/24/18 10:47 Calculated Osmolality 275 (280-300) L 07/24/18 10:47 Phosphorus 5.6 mg/dL (2.7-4.5) H 07/24/18 10:47 Direct Bilirubin 0.3 mg/dL (0.0-0.2) H 07/23/18 16:19 AST 9 Units/L (13-39) L 07/24/18 10:47 ALT 3 Units/L (7-52) L 07/24/18 10:47 Serum Total Protein 4.9 g/dL (6.4-8.9) L 07/24/18 10:47 Albumin 2.1 g/dL (3.5-5.7) L 07/24/18 10:47 Albumin/Globulin Ratio 0.8 (1.1-2.2) L 07/24/18 10:47 Diabetes panel 07/23/18 07/24/18 Range/Units 16:19 10:47 Sodium 131 L 132 L (136-145) mEq/L Potassium 3.4 L 4.2 (3.5-5.1) mEq/L Chloride 96 L 101 (98-107) mEq/L Carbon Dioxide 26 21 L (23-29) mEq/L BUN 13 15 (8-23) mg/dL Creatinine 0.49 L 0.65 (0.60-1.20) mg/dL Glucose 85 108 H (70-105) mg/dL Calcium 9.3 8.6 (8.6-10.3) mg/dL AST 12 L 9 L (13-39) Units/L ALT 4 L 3 L (7-52) Units/L Alkaline Phosphatase 115 H 57 (34-104) Units/L Albumin 3.1 L 2.1 L (3.5-5.7) g/dL Calcium panel 07/23/18 07/24/18 Range/Units 16:19 10:47 Calcium 9.3 8.6 (8.6-10.3) mg/dL Phosphorus 5.6 H (2.7-4.5) mg/dL Albumin 3.1 L 2.1 L (3.5-5.7) g/dL Pituitary panel 07/23/18 07/24/18 Range/Units 16: 10:47 Sodium 131 L 132 L (136-145) mEq/L Potassium 3.4 L 4.2 (3.5-5.1) mEq/L Chloride 96 L 101 (98-107) mEq/L Carbon Dioxide 26 21 L (23-29) mEq/L BUN 13 15 (8-23) mg/dL Creatinine 0.49 L 0.65 (0.60-1.20) mg/dL Glucose 85 108 H (70-105) mg/dL Calcium 9.3 8.6 (8.6-10.3) mg/dL Adrenal panel 07/23/18 07/24/18 Range/Units 16:19 10:47 Sodium 131 L 132 L (136-145) mEq/L Potassium 3.4 L 4.2 (3.5-5.1) mEq/L Chloride 96 L 101 (98-107) mEq/L Carbon Dioxide 26 21 L (23-29) mEq/L BUN 13 15 (8-23) mg/dL Creatinine 0.49 L 0.65 (0.60-1.20) mg/dL Glucose 85 108 H (70-105) mg/dL Calcium 9.3 8.6 (8.6-10.3) mg/dL Total Bilirubin 0.9 0.8 (0.3-1.0) mg/dL AST 12 L 9 L (13-39) Units/L ALT 4 L 3 L (7-52) Units/L Alkaline Phosphatase 115 H 57 (34-104) Units/L Albumin 3.1 L 2.1 L (3.5-5.7) g/dL All other labs normal. - Imaging CT scan - abdomen: report reviewed, image reviewed US - abdomen: report reviewed, image reviewed
[2018-07-24] MEDS ORDERED: *HR* Morphine 30 MG/ 30 ML PCA IVC PRN (13:19)
[2018-07-24] MEDS ORDERED: *HR* Metoprolol 5 MG/5 ML VIAL IVP PRN (13:23)
--- NOTE | 2018-07-24 13:37 | General Surgery Progress Note ---
Date of Encounter: 07/24/18 Time of Encounter: 10:30 - Assessment and Plan (1) Inguinal hernia with incarceration Current Visit: Yes Status: Acute 72F POD #1 s/p surgical drainage of abdominal wall abscess, desouza's procedure; acute blood loss anemia; neuro: begin RHIT cardiac: lopressor 5mg q6hrs PRN; hold for SBP <120, give for SBP >150; hold for HR <60, give for HR >110 pulm: incentive spirometer: 10 breaths an hr while awake GI: NPO, PICC consult for PICC line placement for TPN; Gi prophylaxis; await return of bowel function' : cont lovelace for UOP management; patient less than 24hrs from surgery ID: elevated WBC; bands at 42%; zosyn [id number]; repeat Am labs; drains in place in pelvis and in abdominal wall abscess cavity heme; hgb @ 6.9; transfuse x 2 units; post transfusion h/h; cont to hold plavix endo; glucose < 150 MSK: OOBTC FEN: start TPN, replace electrolytes, NPO except ice chips dispo: cont ICU cares Subjective Patient reports: no new complaints, feels better, still having pain, no flatus, no bowel movement, afebrile Objective Vital Signs - Last 8 Hours Temp Pulse Resp BP Pulse Ox 07/24/18 13:00 83 16 82/48 100 07/24/18 12:39 97.5 F L 07/24/18 12:00 80 16 86/51 100 07/24/18 11:39 90 07/24/18 11:00 90 16 88/51 100 07/24/18 10:00 90 10 88/69 100 07/24/18 09:00 85 21 109/62 100 07/24/18 08:50 97.4 F L 07/24/18 08:00 80 10 91/53 100 07/24/18 07:35 90 07/24/18 07:00 85 10 94/48 100 07/24/18 06:00 79 20 100/59 100 Intake and Output 07/23/18 07/24/18 07/24/18 23:59 07:59 15:59 Intake Total 1100 / 1100 100 / 100 800 / 800 Output Total 515 / 515 180 / 180 Balance 1100 / 1100 -415 / -415 620 / 620 Intake: IV Fluids 1100 / 1100 100 / 100 800 / 800 Lactated Ringers 1,000 ML @ 0 800 / 800 mls/hr .ROUTE .STK-MED ONE Rx#: [id number] 0.9 % Sodium Chloride 1,000 ML 1000 / 1000 @ 999 mls/hr IVC .Q1H1M ONE Rx# :[id number] Potassium Chloride 10 mEq/100mL 100 / 100 10 meq In 100 ml @ 100 mls/hr IVPB Q1H [facility] Rx#:[id number] Ancef 1,000 MG In 0.9 % Sodium 100 / 100 Chloride (Mini-Bag +) 100 ML @ 200 mls/hr IVPB ONCE ONE Rx#: [id number] Oral 0 / 0 Output: Estimated Blood Loss 50 / 50 Catheter 225 / 225 25 / 25 Gastric Drainage 0 / 0 Wound Drainage 240 / 240 155 / 155 drain A 80 / 80 95 / 95 drain b 60 / 60 60 / 60 Other: Weight 31 kg Blood Glucose* 73 116 Patient Weight 07/24/18 23:59 Weight 31 kg - General physical appearance no distress - Respiratory normal expansion, normal respiratory effort - Cardiovascular Cardiovascular exam: Present: RRR - Abdomen Abdomen: Present: soft, tender (appropriately tender) - Incision Incision: Present: clean and dry, intact - Rectum other (colostomy: pink, viable, functioning) - Neurologic CN 2-12 grossly intact - Psychiatric oriented to time, oriented to person, oriented to place - Labs 07/24/18 10:47 07/24/18 10:47 Diabetes panel 07/23/18 07/24/18 Range/Units 16:19 10:47 Sodium 131 L 132 L (136-145) mEq/L Potassium 3.4 L 4.2 (3.5-5.1) mEq/L Chloride 96 L 101 (98-107) mEq/L Carbon Dioxide 26 21 L (23-29) mEq/L BUN 13 15 (8-23) mg/dL Creatinine 0.49 L 0.65 (0.60-1.20) mg/dL Glucose 85 108 H (70-105) mg/dL Calcium 9.3 8.6 (8.6-10.3) mg/dL AST 12 L 9 L (13-39) Units/L ALT 4 L 3 L (7-52) Units/L Alkaline Phosphatase 115 H 57 (34-104) Units/L Albumin 3.1 L 2.1 L (3.5-5.7) g/dL Calcium panel 07/23/18 07/24/18 Range/Units 16:19 10:47 Calcium 9.3 8.6 (8.6-10.3) mg/dL Phosphorus 5.6 H (2.7-4.5) mg/dL Albumin 3.1 L 2.1 L (3.5-5.7) g/dL Pituitary panel 07/23/18 07/24/18 Range/Units 16:19 10:47 Sodium 131 L 132 L (136-145) mEq/L Potassium 3.4 L 4.2 (3.5-5.1) mEq/L Chloride 96 L 101 (98-107) mEq/L Carbon Dioxide 26 21 L (23-29) mEq/L BUN 13 15 (8-23) mg/dL Creatinine 0.49 L 0.65 (0.60-1.20) mg/dL Glucose 85 108 H (70-105) mg/dL Calcium 9.3 8.6 (8.6-10.3) mg/dL Adrenal panel 07/23/18 07/24/18 Range/Units 16:19 10:47 Sodium 131 L 132 L (136-145) mEq/L Potassium 3.4 L 4.2 (3.5-5.1) mEq/L Chloride 96 L 101 (98-107) mEq/L Carbon Dioxide 26 21 L (23-29) mEq/L BUN 13 15 (8-23) mg/dL Creatinine 0.49 L 0.65 (0.60-1.20) mg/dL Glucose 85 108 H (70-105) mg/dL Calcium 9.3 8.6 (8.6-10.3) mg/dL Total Bilirubin 0.9 0.8 (0.3-1.0) mg/dL AST 12 L 9 L (13-39) Units/L ALT 4 L 3 L (7-52) Units/L Alkaline Phosphatase 115 H 57 (34-104) Units/L Albumin 3.1 L 2.1 L (3.5-5.7) g/dL Consult Discharge Plan - Plan Referrals: Zuleyma Hills, CHURN DRILL OPERATOR [Primary Care Provider] -
[2018-07-24] MEDS ORDERED: 0.9 % Sodium Chloride 500 ML ONE (14:44)
--- NOTE | 2018-07-24 15:44 | Operative Note ---
Date of procedure: 07/24/18 Pre-op diagnosis: strangulated left inguinal hernia Post-op diagnosis: other (perforated diverticulitis with abscess) Procedure: exploratory laparotomy surgical drainage of abdominal wall abscess sigmoidectomy colostomy creation Implants: none Complications: none Anesthesia: GETA Local Anesthetics: Other (LUCI block with anesthesia) Surgeon: Romel Eastman Was there an financial sales assistant present: Yes Corn Grinder: [employer] Estimated blood loss (cc): 150 Specimen: sigmoid colon Condition: stable Disposition: PACU Procedure in Detail: The patient was brought into the operating room suite. Mechanical DVT prophylaxis was placed. She was placed in the supine position. Underwent smooth induction of anesthesia. preoperative antibiotics were given. Prepped and draped in the usual fashion. A timeout was held identifying correct patient pathology procedure and physician. I started by creating a midline incision, dissected through the soft tissue and entered into the abdomen. I immediately focused my attention to the left groin and noted a large inflammatory mass which I suspected to the incarcerated hernia. I used the bovie to incise along the peritoneum to create room to reduce the hernia and there was an immediate expulsion of purulent material. I sent for aerobic an anaerobic cultures. I drained the rest of the abscess, whi ch measured about 8cm in size. I then noted that the patient has significant diverticulosis and that the sigmoid colon was adhered to the outer wall of the asbcess. I then broke scrub to talk with the family about the diagnosis and change in operative plan, including the need for a colostomy. I scrubbed back in, placed the bookwalter for self retraction., and began mobilizing the bowel along the white line of toldt from the rectosigmoid junction to just distal to the splenic flexure. I also dissected medially to score the peritoneum for greater colonic mobility. I created proximal and distal mesenteric windows and used the contour stapler to staple across the bowel. I then used the ligasure to ligate the mesentery and passed the specimen from the field. I then irrigated the abdomen with 2L of warm saline impregnated with mefoxin. I then left two drains near the staple line. Should be stated that I did use a prolene suture to take the staple line. I then closed the abdomen using the looped PDS suture in a running fashion. I closed the skin using staplers I created a colostomy in the standard brook fashion. The patient tolerated the procedure well and was escorted to PACU in stable condition.
[2018-07-24] MEDS: D5% in 0.9% NACL 1,000 ML IVC SCH (15:53)
[2018-07-24] MEDS ORDERED: Ringers Solution, Lactated 500 ML IVC ONE (21:27)
[2018-07-25] MEDS: Piperacillin/Tazobactam 3.375 GM in 0.9 % Sodium Chloride Mini Bag 100 ML IVPB SCH ×3 (03:26→18:23)
[2018-07-25] MEDS: *HR* Morphine 2 MG/ML SYRINGE IVP PRN ×2 (03:36→08:15)
[2018-07-25] MEDS: D5% in 0.9% NACL 1,000 ML IVC SCH ×2 (04:42→16:35)
[2018-07-25 04:52] LABS: Basophils % 0.1 %; Hematocrit 21.5 % (35.3-44.9); Hemoglobin 8.5 g/dL (11.5-15.4); Immature Granulocytes % 0.7 % (0-4); Lymphocytes # 1.1 K/mcL (0.6-4.6); Lymphocytes % 5.9 %; Mean Corpuscular HGB Conc 39.5 g/dL (31.6-35.5); Mean Corpuscular Hemoglobin 34.3 pg (28.0-33.3); Mean Corpuscular Volume 86.7 fL (83.0-100.0); Mean Platelet Volume 9.8 fL (9.4-12.4); Monocytes % 5.6 %; Neutrophils # 16.1 K/mcL (1.6-8.9); Platelet Count 242 K/mcL (140-400); Red Blood Count 2.48 M/mcL (3.82-4.97); Segmented Neutrophils % 87.7 %
[2018-07-25 06:45] LABS: Albumin 1.9 g/dL (3.5-5.7); Albumin/Globulin Ratio 0.7 (1.1-2.2); Alkaline Phosphatase 55 Units/L (34-104); Aspartate Amino Transferase 10 Units/L (13-39); BUN/Creatinine Ratio 29 (6-26); Bilirubin,Total 0.5 mg/dL (0.3-1.0); Blood Urea Nitrogen 17 mg/dL (8-23); Calcium 7.9 mg/dL (8.6-10.3); Carbon Dioxide 25 mEq/L (23-29); Chloride 106 mEq/L (98-107); Cholesterol 29 mg/dL (< 200); Globulin 2.7 g/dL (2.4-3.5); Glucose 208 mg/dL (70-105); Magnesium 1.7 mg/dL (1.6-2.6); Osmolality,Calculated 288 (280-300); Phosphorous 4.1 mg/dL (2.7-4.5); Potassium 3.4 mEq/L (3.5-5.1); Sodium 135 mEq/L (136-145); Total Protein 4.6 g/dL (6.4-8.9); eGFR For Non-African Americans > 60 (> 60)
[2018-07-25 07:44] LABS: Alanine Aminotransferase 3 Units/L (7-52)
[2018-07-25] MEDS: Pantoprazole 40 MG VIAL IVP SCH (08:03)
[2018-07-25] MEDS ORDERED: Dextrose Gel 15 GM/37.5 ML TUBE PO PRN ×2 (10:15)
[2018-07-25] MEDS ORDERED: D5% in Water 1,000 ML IVC PRN (10:15)
[2018-07-25] MEDS ORDERED: *HR* Dextrose 50 % in Water (Syg) 50 ML SYRINGE IVP PRN (10:15)
[2018-07-25] MEDS ORDERED: Dextrose 4 GM Chewable Tablets PO PRN ×2 (10:15)
[2018-07-25] MEDS: Potassium Chloride 40 MEQ/200 ML BAG IVPB PRN ×2 (10:59→13:19)
[2018-07-25] MEDS ORDERED: D10% in Water 500 ML IVC PRN (11:32)
[2018-07-25] MEDS: Insulin LISPRO 300 UNITS/3 ML VIAL SQ SCH ×2 (13:23→16:39)
--- NOTE | 2018-07-25 16:05 | Electrocardiograph Report ---
[employer] Test Date: 2018-07-23 Pat Name: Wen Thayer Department: [id number] Room: [facility] Gender: F Continuous Improvement Director: : [id number] Requested By: Cezar Clement Order Number: [id number] Reading MD: Eliseo Ladd Measurements Intervals [place] Rate: 81 P: 29 AK: 126 QRS: 58 QRSD: 82 T: 57 QT: 367 QTc: 426 Interpretive Statements Sinus rhythm Left ventricular hypertrophy Electronically Signed On 07-25-2018 16:03:20 EST by Eliseo Ladd
--- NOTE | 2018-07-25 16:43 | General Surgery Progress Note ---
Date of Encounter: 07/25/18 Time of Encounter: 16:41 - Assessment and Plan (1) Inguinal hernia with incarceration Current Visit: Yes Status: Acute 72F POD #2 s/p surgical drainage of abdominal wall abscess, desouza's procedure; acute blood loss anemia s/p transfusion x 2; appropriate response neuro; cont with current pain regimen cardiac: lopressor 5mg q6hrs PRN; hold for SBP <120, give for SBP >150; hold for HR <60, give for HR >110 pulm: incentive spirometer: 10 breaths an hr while awake GI: NPO, TPN; Gi prophylaxis; await return of bowel function' : okay to discontinue lovelace ID: elevated WBC; down trend; zosyn [id number]; repeat Am labs; drains in place in pelvis and in abdominal wall abscess cavity heme; responded to transfusion appropriately; cont to hold plavix endo; glucose < 150 MSK: OOBTC FEN: start TPN, replace electrolytes, NPO except ice chips dispo: okay to transfer to step down Subjective Patient reports: no new complaints, feels better, still having pain, pain is less, no flatus, no bowel movement, afebrile Objective Vital Signs - Last 8 Hours Temp Pulse Resp BP Pulse Ox 07/25/18 15:10 97.7 F 07/25/18 15:05 80 07/25/18 14:00 79 18 97/49 96 07/25/18 12:28 97.8 F 07/25/18 11:22 80 07/25/18 10:00 79 18 92/57 96 07/25/18 08:51 81 18 99/58 96 Intake and Output 07/25/18 07/25/18 07/25/18 07:59 15:59 23:59 Intake Total 450 / 450 304 / 304 1000 / 1000 Output Total 340 / 340 580 / 580 Balance 110 / 110 -276 / -276 1000 / 1000 Intake: IV Fluids 450 / 450 304 / 304 1000 / 1000 D5% And 0.9% Nacl 1000 Ml 1,000 100 / 100 1000 / 1000 ML @ 75 mls/hr IVC .[id number] [facility] Rx#:[id number] Intralipid 20% 250 ML @ 21 mls/ 250 / 250 hr IVPB DAILY@1700 [facility] Rx#: [id number] Magnesium Sulfate 2 GM In 0.9 % 104 / 104 Sodium Chloride 100 ML @ 52 mls/hr IVPB Q6H PRN Rx#: [id number] Zosyn 3.375 GM In 0.9 % Sodium 100 / 100 100 / 100 Chloride (Mini-Bag +) 100 ML @ 25 mls/hr IVPB Q8H [facility] Rx#: [id number] Potassium Chloride 20 mEq/100 100 / 100 mL 40 meq In 200 ml @ 100 mls/ hr IVPB Q1H PRN Rx#:[id number] Oral 0 / 0 Output: Catheter 100 / 100 300 / 300 Wound Drainage 240 / 240 280 / 280 drain A 145 / 145 165 / 165 drain b 95 / 95 115 / 115 Other: Weight 36.6 kg Blood Glucose* 196 128 Patient Weight 07/25/18 23:59 Weight 36.6 kg - General physical appearance no distress - Respiratory normal expansion, normal respiratory effort - Cardiovascular Cardiovascular exam: Present: RRR - Abdomen Abdomen: Present: soft, tender (appropriatley tender) - Incision Incision: Present: clean and dry, intact - Integumentary no rash - Labs 07/25/18 03:24 07/25/18 06:01 Diabetes panel 07/25/18 07/25/18 07/25/18 Range/Units 03:24 06:01 09:40 Sodium 135 L (136-145) mEq/L Potassium 3.4 L (3.5-5.1) mEq/L Chloride 106 (98-107) mEq/L Carbon Dioxide 25 (23-29) mEq/L BUN 17 (8-23) mg/dL Creatinine 0.58 L (0.60-1.20) mg/dL Glucose 208 H (70-105) mg/dL Calcium 7.9 L (8.6-10.3) mg/dL AST 10 L (13-39) Units/L ALT 3 L (7-52) Units/L Alkaline Phosphatase 55 (34-104) Units/L Albumin 1.9 L (3.5-5.7) g/dL Triglycerides 821 H 32 (< 150) mg/dL Calcium panel 07/25/18 Range/Units 06:01 Calcium 7.9 L (8.6-10.3) mg/dL Phosphorus 4.1 (2.7-4.5) mg/dL Albumin 1.9 L (3.5-5.7) g/dL Pituitary panel 07/25/18 Range/Units 06:01 Sodium 135 L (136-145) mEq/L Potassium 3.4 L (3.5-5.1) mEq/L Chloride 106 (98-107) mEq/L Carbon Dioxide 25 (23-29) mEq/L BUN 17 (8-23) mg/dL Creatinine 0.58 L (0.60-1.20) mg/dL Glucose 208 H (70-105) mg/dL Calcium 7.9 L (8.6-10.3) mg/dL Adrenal panel 07/25/18 Range/Units 06:01 Sodium 135 L (136-145) mEq/L Potassium 3.4 L (3.5-5.1) mEq/L Chloride 106 (98-107) mEq/L Carbon Dioxide 25 (23-29) mEq/L BUN 17 (8-23) mg/dL Creatinine 0.58 L (0.60-1.20) mg/dL Glucose 208 H (70-105) mg/dL Calcium 7.9 L (8.6-10.3) mg/dL Total Bilirubin 0.5 (0.3-1.0) mg/dL AST 10 L (13-39) Units/L ALT 3 L (7-52) Units/L Alkaline Phosphatase 55 (34-104) Units/L Albumin 1.9 L (3.5-5.7) g/dL Consult Discharge Plan - Plan Referrals: Zuleyma Hills, MACHINE HEDDLE CLEANER [Primary Care Provider] -
[2018-07-25] MEDS ORDERED: Clinimix E 5%-15% SOLUTION 2,000 ML with MVI, adult with vitamin K 10 ML IVC SCH ×2 (17:00)
[2018-07-25 17:23] LABS: VBG Ionized Calcium 1.15 mmol/L (1.15-1.35)
[2018-07-25 17:34] LABS: BUN/Creatinine Ratio 34 (6-26); Blood Urea Nitrogen 14 mg/dL (8-23); Calcium 7.3 mg/dL (8.6-10.3); Carbon Dioxide 23 mEq/L (23-29); Chloride 110 mEq/L (98-107); Glucose 163 mg/dL (70-105); Osmolality,Calculated 288 (280-300); Potassium 3.8 mEq/L (3.5-5.1); Sodium 137 mEq/L (136-145); eGFR For Non-African Americans > 60 (> 60)
[2018-07-26] MEDS: Insulin LISPRO 300 UNITS/3 ML VIAL SQ SCH ×4 (00:22→18:44)
[2018-07-26] MEDS: *HR* Morphine 2 MG/ML SYRINGE IVP PRN (03:30)
[2018-07-26] MEDS: Piperacillin/Tazobactam 3.375 GM in 0.9 % Sodium Chloride Mini Bag 100 ML IVPB SCH ×3 (03:30→18:38)
[2018-07-26 05:31] LABS: BUN/Creatinine Ratio 29 (6-26); Blood Urea Nitrogen 10 mg/dL (8-23); Carbon Dioxide 23 mEq/L (23-29); Chloride 110 mEq/L (98-107); Glucose 312 mg/dL (70-105); Magnesium 1.7 mg/dL (1.6-2.6); Osmolality,Calculated 291 (280-300); Phosphorous 3.1 mg/dL (2.7-4.5); Potassium 3.5 mEq/L (3.5-5.1); Sodium 135 mEq/L (136-145); eGFR For Non-African Americans > 60 (> 60)
[2018-07-26] MEDS: Potassium Chloride 40 MEQ/200 ML BAG IVPB PRN ×2 (06:29→08:02)
[2018-07-26 07:54] LABS: Basophils % 0.1 %; Eosinophils % 0.2 %; Hematocrit 22.9 % (35.3-44.9); Hemoglobin 7.6 g/dL (11.5-15.4); Immature Granulocytes % 0.9 % (0-4); Lymphocytes # 1.3 K/mcL (0.6-4.6); Lymphocytes % 8.5 %; Mean Corpuscular HGB Conc 33.2 g/dL (31.6-35.5); Mean Corpuscular Hemoglobin 28.9 pg (28.0-33.3); Mean Corpuscular Volume 87.1 fL (83.0-100.0); Mean Platelet Volume 9.2 fL (9.4-12.4); Monocytes # 0.5 K/mcL (0.0-1.3); Monocytes % 3.3 %; Neutrophils # 13.3 K/mcL (1.6-8.9); Platelet Count 242 K/mcL (140-400); Red Blood Count 2.63 M/mcL (3.82-4.97); Red Cell Distribution Width 14.5 % (11.5-14.5)
[2018-07-26] MEDS: Pantoprazole 40 MG VIAL IVP SCH ×2 (08:00→10:17)
[2018-07-26] MEDS ORDERED: D5% in Water 1,000 ML IVC PRN (08:07)
[2018-07-26] MEDS ORDERED: Dextrose 4 GM Chewable Tablets PO PRN ×2 (08:07)
[2018-07-26] MEDS ORDERED: *HR* Promethazine 25 MG/ML VIAL IVP PRN (08:07)
[2018-07-26] MEDS ORDERED: D10% in Water 500 ML IVC PRN (08:07)
[2018-07-26] MEDS ORDERED: *HR* Morphine 30 MG/ 30 ML PCA IVC PRN (08:07)
[2018-07-26] MEDS ORDERED: D5% in 0.9% NACL 1,000 ML IVC SCH (08:07)
[2018-07-26] MEDS ORDERED: Dextrose Gel 15 GM/37.5 ML TUBE PO PRN ×2 (08:07)
[2018-07-26] MEDS ORDERED: *HR* Dextrose 50 % in Water (Syg) 50 ML SYRINGE IVP PRN (08:07)
--- NOTE | 2018-07-26 11:39 | General Surgery Progress Note ---
<Karyn Martin - Last Filed: 07/26/18 12:33> Date of Encounter: 07/26/18 Time of Encounter: 08:00 - Assessment and Plan (1) Diverticulitis of colon with perforation Current Visit: Yes Status: Acute Date of procedure: 07/24/18 Pre-op diagnosis: strangulated left inguinal hernia Post-op diagnosis: other (perforated diverticulitis with abscess) Procedure: exploratory laparotomy surgical drainage of abdominal wall abscess sigmoidectomy colostomy creation Surgeon Dr. Eastman POD #2 as above. Pt is recovering as expected. Ok to to transfer to step down Continue NG to LIWS Ice chips for pleasure continue supportive care and discomfort management while awaiting return of bowel function IVF TPN serial abd exams repeat am labs PT/OT/SW wound care for new ostomy teaching OOB chair TID Amb with pt/ot continue IV ATBX Qualifiers: Diverticulitis bleeding: unspecified bleeding status Qualified Code(s): K57.20 - Diverticulitis of large intestine with perforation and abscess without bleeding Subjective Patient reports: no new complaints, feels better, still having pain, pain is less, voiding w/o difficulty, no flatus, no bowel movement, afebrile Objective Vital Signs - Last 8 Hours Temp Pulse Resp BP Pulse Ox 07/26/18 11:14 97.6 F 07/26/18 08:00 80 07/26/18 07:47 98.1 F 93 20 134/75 92 07/26/18 06:30 98.1 F 07/26/18 04:00 81 07/26/18 03:55 97.8 F 85 17 115/62 99 Intake and Output 07/25/18 07/26/18 07/26/18 23:59 07:59 15:59 Intake Total 1510 / 1510 200 / 200 Output Total 400 / 400 955 / 955 560 / 560 Balance 1110 / 1110 -955 / -955 -360 / -360 Intake: IV Fluids 1510 / 1510 200 / 200 D5% And 0.9% Nacl 1000 Ml 1,000 1000 / 1000 ML @ 75 mls/hr IVC .[id number] [facility] Rx#:[id number] Clinimix E 5%-15% SOLUTION 2, 210 / 210 000 ML @ 30 mls/hr IVC .Q24H [facility] with M.v.i. Adult 10 ml Rx# :[id number] Zosyn 3.375 GM In 0.9 % Sodium 100 / 100 100 / 100 Chloride (Mini-Bag +) 100 ML @ 25 mls/hr IVPB Q8H [facility] Rx#: [id number] Potassium Chloride 20 mEq/100 200 / 200 100 / 100 mL 40 meq In 200 ml @ 100 mls/ hr IVPB Q1H PRN Rx#:[id number] Output: Urine 50 / 50 525 / 525 300 / 300 Stool 0 / 0 0 / 0 Catheter 250 / 250 Gastric Drainage 150 / 150 50 / 50 Wound Drainage 100 / 100 280 / 280 210 / 210 drain A 60 / 60 190 / 190 120 / 120 drain b 40 / 40 90 / 90 90 / 90 Other: Weight 35.5 kg Blood Glucose* 159 188 117 Patient Weight 07/26/18 23:59 Weight 35.5 kg - General physical appearance no distress, moderate pain, cachectic - ENT normal nares, normal mucosa, atraumatic, normocephalic - Neck Neck exam: trachea midline - Respiratory other (decreased) - Cardiovascular Cardiovascular exam: Present: RRR - Abdomen Abdomen: Present: bowel sounds present, soft, tender (expected postoperative), wound (stoma is pink and moist) Hernia: none - Incision Incision: Present: clean and dry, intact - Integumentary no rash - Neurologic normal sensation - Musculoskeletal normal posture - Psychiatric oriented to time, oriented to person, oriented to place, speech is normal, memory intact - Labs 07/26/18 07:33 07/26/18 04:40 Diabetes panel 07/25/18 07/26/18 Range/Units 16:45 04:40 Sodium 137 135 L (136-145) mEq/L Potassium 3.8 3.5 (3.5-5.1) mEq/L Chloride 110 H 110 H (98-107) mEq/L Carbon Dioxide 23 23 (23-29) mEq/L BUN 14 10 (8-23) mg/dL Creatinine 0.41 L 0.34 L (0.60-1.20) mg/dL Glucose 163 H 312 H (70-105) mg/dL Calcium 7.3 L 7.0 L (8.6-10.3) mg/dL Calcium panel 07/25/18 07/26/18 Range/Units 16:45 04:40 Calcium 7.3 L 7.0 L (8.6-10.3) mg/dL Phosphorus 3.1 (2.7-4.5) mg/dL Pituitary panel 07/25/18 07/26/18 Range/Units 16:45 04:40 Sodium 137 135 L (136-145) mEq/L Potassium 3.8 3.5 (3.5-5.1) mEq/L Chloride 110 H 110 H (98-107) mEq/L Carbon Dioxide 23 23 (23-29) mEq/L BUN 14 10 (8-23) mg/dL Creatinine 0.41 L 0.34 L (0.60-1.20) mg/dL Glucose 163 H 312 H (70-105) mg/dL Calcium 7.3 L 7.0 L (8.6-10.3) mg/dL Adrenal panel 07/25/18 07/26/18 Range/Units 16:45 04:40 Sodium 137 135 L (136-145) mEq/L Potassium 3.8 3.5 (3.5-5.1) mEq/L Chloride 110 H 110 H (98-107) mEq/L Carbon Dioxide 23 23 (23-29) mEq/L BUN 14 10 (8-23) mg/dL Creatinine 0.41 L 0.34 L (0.60-1.20) mg/dL Glucose 163 H 312 H (70-105) mg/dL Calcium 7.3 L 7.0 L (8.6-10.3) mg/dL Consult Discharge Plan - Plan Referrals: Zuleyma Hills, SCREW DOWN [Primary Care Provider] - <Romel Eastman - Last Filed: 07/27/18 07:07> Date of Encounter: 07/27/18 - Assessment and Plan (1) Inguinal hernia with incarceration Current Visit: Yes Status: Acute Objective Vital Signs - Last 8 Hours Temp Pulse Resp BP Pulse Ox 07/27/18 03:11 97.8 F 77 18 139/70 96 07/26/18 23:56 97.8 F 79 18 161/81 97 Intake and Output 07/26/18 07/26/18 07/27/18 15:59 23:59 07:59 Intake Total 1200 / 1200 200 / 200 Output Total 810 / 810 655 / 655 690 / 690 Balance 390 / 390 -455 / -455 -690 / -690 Intake: IV Fluids 1200 / 1200 200 / 200 D5% And 0.9% Nacl 1000 Ml 1,000 1000 / 1000 ML @ 75 mls/hr IVC .[id number] [facility] Rx#:[id number] Zosyn 3.375 GM In 0.9 % Sodium 100 / 100 200 / 200 Chloride (Mini-Bag +) 100 ML @ 25 mls/hr IVPB Q8H [facility] Rx#: [id number] Potassium Chloride 20 mEq/100 100 / 100 mL 40 meq In 200 ml @ 100 mls/ hr IVPB Q1H PRN Rx#:[id number] Output: Urine 550 / 550 250 / 250 500 / 500 Stool 0 / 0 Gastric Drainage 50 / 50 Wound Drainage 210 / 210 405 / 405 190 / 190 drain A 120 / 120 325 / 325 190 / 190 drain b 90 / 90 80 / 80 0 / 0 Other: # Voids 1 1 Weight 35.5 kg Blood Glucose* 117 153 154 - Labs 07/27/18 03:35 07/27/18 03:35 Diabetes panel 07/27/18 Range/Units 03:35 Sodium 135 L (136-145) mEq/L Potassium 2.8 L (3.5-5.1) mEq/L Chloride 103 (98-107) mEq/L Carbon Dioxide 26 (23-29) mEq/L BUN 6 L (8-23) mg/dL Creatinine 0.25 L (0.60-1.20) mg/dL Glucose 115 H (70-105) mg/dL Calcium 6.9 L (8.6-10.3) mg/dL Calcium panel 07/27/18 07/27/18 Range/Units 03:35 03:35 Calcium 6.9 L (8.6-10.3) mg/dL Phosphorus 2.0 L (2.7-4.5) mg/dL Pituitary panel 07/27/18 Range/Units 03:35 Sodium 135 L (136-145) mEq/L Potassium 2.8 L (3.5-5.1) mEq/L Chloride 103 (98-107) mEq/L Carbon Dioxide 26 (23-29) mEq/L BUN 6 L (8-23) mg/dL Creatinine 0.25 L (0.60-1.20) mg/dL Glucose 115 H (70-105) mg/dL Calcium 6.9 L (8.6-10.3) mg/dL Adrenal panel 07/27/18 Range/Units 03:35 Sodium 135 L (136-145) mEq/L Potassium 2.8 L (3.5-5.1) mEq/L Chloride 103 (98-107) mEq/L Carbon Dioxide 26 (23-29) mEq/L BUN 6 L (8-23) mg/dL Creatinine 0.25 L (0.60-1.20) mg/dL Glucose 115 H (70-105) mg/dL Calcium 6.9 L (8.6-10.3) mg/dL - Attending Attestation patient seen and examined. i have reviewed all labs, imaging, and notes. I agree with the above assessment and plan
[2018-07-26] MEDS ORDERED: Clinimix E 5%-15% SOLUTION 2,000 ML with MVI, adult with vitamin K 10 ML IVC SCH (17:00)
[2018-07-26] MEDS: *HR* Heparin 5,000 UNIT/ML VIAL SQ SCH (18:38)
[2018-07-26] MEDS: 0.9 % Sodium Chloride 1,000 ML IVC SCH (18:39)
[2018-07-27] MEDS: Piperacillin/Tazobactam 3.375 GM in 0.9 % Sodium Chloride Mini Bag 100 ML IVPB SCH ×3 (02:51→21:23)
[2018-07-27 03:56] LABS: Basophils % 0.1 %; Eosinophils # 0.1 K/mcL (0.0-0.6); Eosinophils % 0.6 %; Hematocrit 22.6 % (35.3-44.9); Hemoglobin 7.6 g/dL (11.5-15.4); Immature Granulocytes % 0.6 % (0-4); Lymphocytes # 1.1 K/mcL (0.6-4.6); Lymphocytes % 9.8 %; Mean Corpuscular HGB Conc 33.6 g/dL (31.6-35.5); Mean Corpuscular Hemoglobin 28.7 pg (28.0-33.3); Mean Corpuscular Volume 85.3 fL (83.0-100.0); Mean Platelet Volume 9.1 fL (9.4-12.4); Monocytes # 0.6 K/mcL (0.0-1.3); Monocytes % 4.9 %; Neutrophils # 9.5 K/mcL (1.6-8.9); Platelet Count 223 K/mcL (140-400); Red Blood Count 2.65 M/mcL (3.82-4.97); Red Cell Distribution Width 14.3 % (11.5-14.5)
[2018-07-27 04:15] LABS: Magnesium 1.5 mg/dL (1.6-2.6)
[2018-07-27 04:16] LABS: BUN/Creatinine Ratio 24 (6-26); Blood Urea Nitrogen 6 mg/dL (8-23); Calcium 6.9 mg/dL (8.6-10.3); Carbon Dioxide 26 mEq/L (23-29); Chloride 103 mEq/L (98-107); Glucose 115 mg/dL (70-105); Osmolality,Calculated 279 (280-300); Potassium 2.8 mEq/L (3.5-5.1); Sodium 135 mEq/L (136-145); eGFR For Non-African Americans > 60 (> 60)
[2018-07-27] MEDS: *HR* Heparin 5,000 UNIT/ML VIAL SQ SCH ×2 (06:09→18:33)
[2018-07-27] MEDS: Insulin LISPRO 300 UNITS/3 ML VIAL SQ SCH ×4 (06:09→18:33)
[2018-07-27] MEDS ORDERED: Potassium Chloride 40 MEQ, Lidocaine 1% 2 ML in D5% in Water 500 ML IVPB ONE (07:10)
--- NOTE | 2018-07-27 08:04 | General Surgery Progress Note ---
Date of Encounter: 07/27/18 Time of Encounter: 08:01 - Assessment and Plan (1) Inguinal hernia with incarceration Current Visit: Yes Status: Acute 72F POD #3 s/p surgical drainage of abdominal wall abscess, desouza's procedure; acute blood loss anemia s/p transfusion x 2; appropriate response neuro; cont with current pain regimen cardiac: lopressor 5mg q6hrs PRN; hold for SBP <120, give for SBP >150; hold for HR <60, give for HR >110 pulm: incentive spirometer: 10 breaths an hr while awake GI: okay for ice chips; abdomen distended; cont with NG , TPN; Gi prophylaxis; await return of bowel function' : cont to trend Cr ID: WBC down trending; cont zosyn; cont drains heme; responded to transfusion appropriately; on chemical dvt prophylaxis; cont to hold plavix; trend h/h endo; glucose < 150 MSK: OOBTC, PT/OT FEN: start TPN, replace electrolytes, NPO except ice chips Subjective Patient reports: no new complaints, feels better, still having pain, pain is less, no flatus, no bowel movement, afebrile Objective Vital Signs - Last 8 Hours Temp Pulse Resp BP Pulse Ox 07/27/18 07:02 97.6 F 75 17 146/72 96 07/27/18 03:11 97.8 F 77 18 139/70 96 Intake and Output 07/26/18 07/27/18 07/27/18 23:59 07:59 15:59 Intake Total 200 / 200 0 / 0 Output Total 655 / 655 725 / 725 Balance -455 / -455 -725 / -725 Intake: IV Fluids 200 / 200 Zosyn 3.375 GM In 0.9 % Sodium 200 / 200 Chloride (Mini-Bag +) 100 ML @ 25 mls/hr IVPB Q8H [facility] Rx#: [id number] Oral 0 / 0 Output: Urine 250 / 250 500 / 500 Wound Drainage 405 / 405 225 / 225 drain A 325 / 325 210 / 210 drain b 80 / 80 15 / 15 Other: # Voids 1 1 Blood Glucose* 153 154 - General physical appearance no distress - Respiratory normal expansion, normal respiratory effort - Cardiovascular Cardiovascular exam: Present: RRR - Abdomen Abdomen: Present: soft, tympanic, distended, tender (appropriately tender, less than yesterday) - Incision Incision: Present: clean and dry, intact - Neurologic CN 2-12 grossly intact - Psychiatric oriented to time, oriented to person, oriented to place - Labs 07/27/18 03:35 07/27/18 03:35 Diabetes panel 07/27/18 Range/Units 03:35 Sodium 135 L (136-145) mEq/L Potassium 2.8 L (3.5-5.1) mEq/L Chloride 103 (98-107) mEq/L Carbon Dioxide 26 (23-29) mEq/L BUN 6 L (8-23) mg/dL Creatinine 0.25 L (0.60-1.20) mg/dL Glucose 115 H (70-105) mg/dL Calcium 6.9 L (8.6-10.3) mg/dL Calcium panel 07/27/18 07/27/18 Range/Units 03:35 03:35 Calcium 6.9 L (8.6-10.3) mg/dL Phosphorus 2.0 L (2.7-4.5) mg/dL Pituitary panel 07/27/18 Range/Units 03:35 Sodium 135 L (136-145) mEq/L Potassium 2.8 L (3.5-5.1) mEq/L Chloride 103 (98-107) mEq/L Carbon Dioxide 26 (23-29) mEq/L BUN 6 L (8-23) mg/dL Creatinine 0.25 L (0.60-1.20) mg/dL Glucose 115 H (70-105) mg/dL Calcium 6.9 L (8.6-10.3) mg/dL Adrenal panel 07/27/18 Range/Units 03:35 Sodium 135 L (136-145) mEq/L Potassium 2.8 L (3.5-5.1) mEq/L Chloride 103 (98-107) mEq/L Carbon Dioxide 26 (23-29) mEq/L BUN 6 L (8-23) mg/dL Creatinine 0.25 L (0.60-1.20) mg/dL Glucose 115 H (70-105) mg/dL Calcium 6.9 L (8.6-10.3) mg/dL Consult Discharge Plan - Plan Referrals: Zuleyma Hills, MAILING MACHINE HELPER [Primary Care Provider] -
[2018-07-27] MEDS: Pantoprazole 40 MG VIAL IVP SCH (08:09)
[2018-07-27] MEDS ORDERED: Clinimix E 5%-15% SOLUTION 2,000 ML with MVI, adult with vitamin K 10 ML IVC SCH (17:00)
[2018-07-27] MEDS: *HR* Morphine 2 MG/ML SYRINGE IVP PRN ×2 (17:22→21:10)
[2018-07-27] MEDS: 0.9 % Sodium Chloride 1,000 ML IVC SCH (18:28)
[2018-07-28] MEDS: Insulin LISPRO 300 UNITS/3 ML VIAL SQ SCH ×5 (01:05→20:12)
[2018-07-28] MEDS: Piperacillin/Tazobactam 3.375 GM in 0.9 % Sodium Chloride Mini Bag 100 ML IVPB SCH ×3 (03:46→19:17)
[2018-07-28 03:58] LABS: Eosinophils # 0.2 K/mcL (0.0-0.6); Eosinophils % 1.8 %; Hematocrit 23.2 % (35.3-44.9); Hemoglobin 7.8 g/dL (11.5-15.4); Immature Granulocytes % 0.8 % (0-4); Lymphocytes # 1.3 K/mcL (0.6-4.6); Lymphocytes % 13.3 %; Mean Corpuscular HGB Conc 33.6 g/dL (31.6-35.5); Mean Corpuscular Volume 86.2 fL (83.0-100.0); Mean Platelet Volume 9.6 fL (9.4-12.4); Monocytes # 0.7 K/mcL (0.0-1.3); Monocytes % 6.7 %; Neutrophils # 7.6 K/mcL (1.6-8.9); Platelet Count 231 K/mcL (140-400); Red Blood Count 2.69 M/mcL (3.82-4.97); Red Cell Distribution Width 14.4 % (11.5-14.5); Segmented Neutrophils % 77.4 %
[2018-07-28 04:13] LABS: BUN/Creatinine Ratio 22 (6-26); Blood Urea Nitrogen 8 mg/dL (8-23); Calcium 7.1 mg/dL (8.6-10.3); Carbon Dioxide 28 mEq/L (23-29); Chloride 104 mEq/L (98-107); Glucose 116 mg/dL (70-105); Magnesium 1.7 mg/dL (1.6-2.6); Osmolality,Calculated 277 (280-300); Potassium 2.9 mEq/L (3.5-5.1); Sodium 134 mEq/L (136-145); eGFR For Non-African Americans > 60 (> 60)
[2018-07-28] MEDS: *HR* Heparin 5,000 UNIT/ML VIAL SQ SCH ×2 (06:14→17:28)
[2018-07-28] MEDS: Pantoprazole 40 MG VIAL IVP SCH (10:09)
--- NOTE | 2018-07-28 13:46 | General Surgery Progress Note ---
Date of Encounter: 07/28/18 Time of Encounter: 10:50 - Assessment and Plan (1) Diverticulitis of colon with perforation Current Visit: Yes Status: Acute Date of procedure: 07/24/18 Pre-op diagnosis: strangulated left inguinal hernia Post-op diagnosis: other (perforated diverticulitis with abscess) Procedure: exploratory laparotomy surgical drainage of abdominal wall abscess sigmoidectomy colostomy creation Surgeon Dr. Eastman POD #4 as above. Pt is recovering as expected. Patient is feeling better and is passing gas. Discontinue NG. Advance to clear liquid diet. Continue TPN. continue supportive care and discomfort management while awaiting full return of bowel function serial abd exams repeat am labs PT/OT/SW wound care for new ostomy teaching OOB chair TID Amb with pt/ot continue IV ATBX Qualifiers: Diverticulitis bleeding: unspecified bleeding status Qualified Code(s): K57.20 - Diverticulitis of large intestine with perforation and abscess without bleeding Subjective Narrative: Patient seen and examined. No acute events overnight. Patient is resting comfortably in bed. Patient states shes doing great. States shes been passing gas since yesterday. Denies abdominal pain, nausea/vomiting, or fever. Denies any other complaints. Objective Vital Signs - Last 8 Hours Temp Pulse Resp BP Pulse Ox 07/28/18 10:42 97.8 F 68 16 121/66 96 07/28/18 06:57 98 F 70 16 118/62 96 Intake and Output 07/27/18 07/28/18 07/28/18 23:59 07:59 15:59 Intake Total 1100 / 1100 550 / 550 0 / 0 Output Total 850 / 850 360 / 360 510 / 510 Balance 250 / 250 190 / 190 -510 / -510 Intake: IV Fluids 1100 / 1100 450 / 450 0.9 % Sodium Chloride 1,000 ML 1000 / 1000 @ 35 mls/hr IVC .Q24H [facility] Rx#: [id number] Intralipid 20% 250 ML @ 21 mls/ 250 / 250 hr IVPB DAILY@1700 [facility] Rx#: [id number] Zosyn 3.375 GM In 0.9 % Sodium 100 / 100 200 / 200 Chloride (Mini-Bag +) 100 ML @ 25 mls/hr IVPB Q8H [facility] Rx#: [id number] Oral 0 / 0 100 / 100 0 / 0 Output: Urine 50 / 50 100 / 100 Gastric Tube Lavage Amount 250 / 250 Left Nare 250 / 250 Gastric Drainage 550 / 550 Wound Drainage 250 / 250 260 / 260 260 / 260 drain A 200 / 200 180 / 180 120 / 120 drain b 50 / 50 80 / 80 140 / 140 Other: Meal NPO LUNCH # Voids 1 1 2 # Bowel Movements 0 0 Weight 35.1 kg Blood Glucose* 111 120 117 Patient Weight 07/28/18 23:59 Weight 35.1 kg - Additional Exam VITAL SIGNS: Reviewed. See [facility] GENERAL: In no apparent distress. HEENT: Normocephalic, atraumatic, pupils are equal and reactive, extraocular motions intact, oral mucosa pink and moist. CHEST/RESPIRATORY: The thorax is free from signs of trauma. Lung sounds: clear to auscultation, normal respiratory effort CARDIAC: Regular rate and rhythm. Normal S1 and S2, without murmurs, gallops, or rubs. VASCULAR: No edema. ABDOMEN: Soft. Nondistended. Nontender. Bowel sounds present. Colostomy site is pink and moist. Colostomy bag is full of gas, there is no stool. INCISION: Incision sites are clean, dry, and intact. There is no sign of cellulitis or infection. MUSCULOSKELETAL: Good range of motion of all major joints. Extremities without clubbing or cyanosis. NEUROLOGIC EXAM: Alert and oriented x 3. Speech normal. Follows commands. PSYCHIATRIC: Mood normal. SKIN: No rash or lesions. - Labs 07/28/18 03:40 07/28/18 03:40 Diabetes panel 07/28/18 Range/Units 03:40 Sodium 134 L (136-145) mEq/L Potassium 2.9 L (3.5-5.1) mEq/L Chloride 104 (98-107) mEq/L Carbon Dioxide 28 (23-29) mEq/L BUN 8 (8-23) mg/dL Creatinine 0.36 L (0.60-1.20) mg/dL Glucose 116 H (70-105) mg/dL Calcium 7.1 L (8.6-10.3) mg/dL Calcium panel 07/28/18 Range/Units 03:40 Calcium 7.1 L (8.6-10.3) mg/dL Phosphorus 3.0 (2.7-4.5) mg/dL Pituitary panel 07/28/18 Range/Units 03:40 Sodium 134 L (136-145) mEq/L Potassium 2.9 L (3.5-5.1) mEq/L Chloride 104 (98-107) mEq/L Carbon Dioxide 28 (23-29) mEq/L BUN 8 (8-23) mg/dL Creatinine 0.36 L (0.60-1.20) mg/dL Glucose 116 H (70-105) mg/dL Calcium 7.1 L (8.6-10.3) mg/dL Adrenal panel 07/28/18 Range/Units 03:40 Sodium 134 L (136-145) mEq/L Potassium 2.9 L (3.5-5.1) mEq/L Chloride 104 (98-107) mEq/L Carbon Dioxide 28 (23-29) mEq/L BUN 8 (8-23) mg/dL Creatinine 0.36 L (0.60-1.20) mg/dL Glucose 116 H (70-105) mg/dL Calcium 7.1 L (8.6-10.3) mg/dL Consult Discharge Plan - Plan Referrals: Zuleyma Hills, HABILITATIVE INTERVENTIONIST [Primary Care Provider] -
[2018-07-28] MEDS: 0.9 % Sodium Chloride 1,000 ML IVC SCH (15:57)
[2018-07-28] MEDS ORDERED: Clinimix E 5%-15% SOLUTION 2,000 ML with MVI, adult with vitamin K 10 ML IVC SCH (17:00)
[2018-07-29] MEDS: Insulin LISPRO 300 UNITS/3 ML VIAL SQ SCH ×7 (00:17→21:11)
[2018-07-29] MEDS: Piperacillin/Tazobactam 3.375 GM in 0.9 % Sodium Chloride Mini Bag 100 ML IVPB SCH ×3 (02:21→18:17)
[2018-07-29 04:42] LABS: Basophils % 0.1 %; Eosinophils # 0.2 K/mcL (0.0-0.6); Eosinophils % 1.7 %; Hematocrit 22.7 % (35.3-44.9); Hemoglobin 7.6 g/dL (11.5-15.4); Immature Granulocytes % 0.8 % (0-4); Lymphocytes # 1.5 K/mcL (0.6-4.6); Lymphocytes % 13.3 %; Mean Corpuscular HGB Conc 33.5 g/dL (31.6-35.5); Mean Corpuscular Hemoglobin 28.8 pg (28.0-33.3); Mean Platelet Volume 9.5 fL (9.4-12.4); Monocytes # 0.7 K/mcL (0.0-1.3); Monocytes % 6.5 %; Neutrophils # 8.8 K/mcL (1.6-8.9); Platelet Count 232 K/mcL (140-400); Red Blood Count 2.64 M/mcL (3.82-4.97); Red Cell Distribution Width 14.2 % (11.5-14.5); Segmented Neutrophils % 77.6 %
[2018-07-29 04:59] LABS: BUN/Creatinine Ratio 19 (6-26); Blood Urea Nitrogen 7 mg/dL (8-23); Calcium 7.1 mg/dL (8.6-10.3); Carbon Dioxide 29 mEq/L (23-29); Chloride 103 mEq/L (98-107); Glucose 101 mg/dL (70-105); Magnesium 1.5 mg/dL (1.6-2.6); Osmolality,Calculated 278 (280-300); Phosphorous 2.1 mg/dL (2.7-4.5); Potassium 2.9 mEq/L (3.5-5.1); Sodium 135 mEq/L (136-145); eGFR For Non-African Americans > 60 (> 60)
[2018-07-29] MEDS: *HR* Heparin 5,000 UNIT/ML VIAL SQ SCH ×2 (05:17→18:20)
[2018-07-29] MEDS: D5% in 0.9% NACL 1,000 ML IVC SCH (07:39)
[2018-07-29] MEDS ORDERED: Clinimix E 5%-15% SOLUTION 2,000 ML with MVI, adult with vitamin K 10 ML IVC SCH ×3 (08:45→17:00)
--- NOTE | 2018-07-29 09:06 | General Surgery Progress Note ---
Date of Encounter: 07/29/18 Time of Encounter: 08:05 - Assessment and Plan (1) Diverticulitis of colon with perforation Current Visit: Yes Status: Acute Date of procedure: 07/24/18 Pre-op diagnosis: strangulated left inguinal hernia Post-op diagnosis: other (perforated diverticulitis with abscess) Procedure: exploratory laparotomy surgical drainage of abdominal wall abscess sigmoidectomy colostomy creation Surgeon Dr. Eastman POD #5 as above. Pt is recovering as expected. Patient is feeling better and is making bowel movements. Advance to regular diet Discontinue IVF Wean TPN. continue supportive care and discomfort management while awaiting full return of bowel function serial abd exams repeat am labs PT/OT/SW wound care for new ostomy teaching OOB chair TID Amb with pt/ot continue IV ATBX Qualifiers: Diverticulitis bleeding: unspecified bleeding status Qualified Code(s): K57 .20 - Diverticulitis of large intestine with perforation and abscess without bleeding Subjective Narrative: Patient seen and examined. No acute events overnight. Patient is resting comfortably in bed. Patient states shes doing great. Had bowel movement yesterday and this morning. Denies abdominal pain, nausea/vomiting, or fever. Denies any other complaints. Objective Vital Signs - Last 8 Hours Temp Pulse Resp BP Pulse Ox 07/29/18 08:10 98.1 F 79 16 149/78 97 07/29/18 03:30 98.0 F 77 15 145/78 97 Intake and Output 07/28/18 07/29/18 07/29/18 23:59 07:59 15:59 Intake Total 200 / 200 470 / 470 360 / 360 Output Total 280 / 280 335 / 335 Balance -80 / -80 135 / 135 360 / 360 Intake: IV Fluids 200 / 200 350 / 350 Intralipid 20% 250 ML @ 21 mls/ 250 / 250 hr IVPB DAILY@1700 [facility] Rx#: [id number] Zosyn 3.375 GM In 0.9 % Sodium 100 / 100 100 / 100 Chloride (Mini-Bag +) 100 ML @ 25 mls/hr IVPB Q8H [facility] Rx#: [id number] Potassium Chloride 10 mEq/100mL 100 / 100 10 meq In 100 ml @ 100 mls/hr IVPB Q1H [facility] Rx#:[id number] Oral 0 / 0 120 / 120 360 / 360 Output: Urine 200 / 200 Stool 150 / 150 Wound Drainage 130 / 130 135 / 135 drain A 100 / 100 105 / 105 drain b 30 / 30 30 / 30 Other: Meal Clears Percent of Meal Consumed 0% # Voids 1 1 1 Weight 34.9 kg Blood Glucose* 112 117 Patient Weight 07/29/18 23:59 Weight 34.9 kg - Additional Exam VITAL SIGNS: Reviewed. See [facility] GENERAL: In no apparent distress. HEENT: Normocephalic, atraumatic, pupils are equal and reactive, extraocular motions intact, oral mucosa pink and moist. CHEST/RESPIRATORY: The thorax is free from signs of trauma. Lung sounds: clear to auscultation, normal respiratory effort CARDIAC: Regular rate and rhythm. Normal S1 and S2, without murmurs, gallops, or rubs. VASCULAR: No edema. ABDOMEN: Soft. Nondistended. Nontender. Bowel sounds present. Colostomy site is pink and moist. Colostomy bag contains gas and liquid brown stool. INCISION: Incision sites are clean, dry, and intact. There is no sign of cellulitis or infection. WOUNDS/DRAINS: GIULIANO drain sites areWNL. Both GIULIANO bulbs contain serosanguinous fluid. MUSCULOSKELETAL: Good range of motion of all major joints. Extremities without clubbing or cyanosis. NEUROLOGIC EXAM: Alert and oriented x 3. Speech normal. Follows commands. PSYCHIATRIC: Mood normal. SKIN: No rash or lesions. - Labs 07/29/18 04:20 07/29/18 04:20 Diabetes panel 07/29/18 Range/Units 04:20 Sodium 135 L (136-145) mEq/L Potassium 2.9 L (3.5-5.1) mEq/L Chloride 103 (98-107) mEq/L Carbon Dioxide 29 (23-29) mEq/L BUN 7 L (8-23) mg/dL Creatinine 0.36 L (0.60-1.20) mg/dL Glucose 101 (70-105) mg/dL Calcium 7.1 L (8.6-10.3) mg/dL Calcium panel 07/29/18 Range/Units 04:20 Calcium 7.1 L (8.6-10.3) mg/dL Phosphorus 2.1 L (2.7-4.5) mg/dL Pituitary panel 07/29/18 Range/Units 04:20 Sodium 135 L (136-145) mEq/L Potassium 2.9 L (3.5-5.1) mEq/L Chloride 103 (98-107) mEq/L Carbon Dioxide 29 (23-29) mEq/L BUN 7 L (8-23) mg/dL Creatinine 0.36 L (0.60-1.20) mg/dL Glucose 101 (70-105) mg/dL Calcium 7.1 L (8.6-10.3) mg/dL Adrenal panel 07/29/18 Range/Units 04:20 Sodium 135 L (136-145) mEq/L Potassium 2.9 L (3.5-5.1) mEq/L Chloride 103 (98-107) mEq/L Carbon Dioxide 29 (23-29) mEq/L BUN 7 L (8-23) mg/dL Creatinine 0.36 L (0.60-1.20) mg/dL Glucose 101 (70-105) mg/dL Calcium 7.1 L (8.6-10.3) mg/dL Consult Discharge Plan - Plan Referrals: Zuleyma Hills, SEARCH MANAGER [Primary Care Provider] -
[2018-07-29] MEDS: Pantoprazole 40 MG VIAL IVP SCH (09:35)
[2018-07-29] MEDS: Potassium Chloride 40 MEQ/200 ML BAG IVPB PRN (12:18)
[2018-07-29] MEDS ORDERED: Acetaminophen 325 MG TABLET PO PRN (13:23)
[2018-07-30] MEDS: Insulin LISPRO 300 UNITS/3 ML VIAL SQ SCH ×5 (00:34→17:05)
[2018-07-30] MEDS: *HR* Metoprolol 5 MG/5 ML VIAL IVP PRN (00:39)
[2018-07-30] MEDS: Piperacillin/Tazobactam 3.375 GM in 0.9 % Sodium Chloride Mini Bag 100 ML IVPB SCH ×3 (02:51→18:13)
[2018-07-30 04:14] LABS: VBG Ionized Calcium 1.08 mmol/L (1.15-1.35)
[2018-07-30 04:26] LABS: Basophils % 0.1 %; Eosinophils # 0.2 K/mcL (0.0-0.6); Eosinophils % 1.7 %; Hematocrit 23.5 % (35.3-44.9); Hemoglobin 7.7 g/dL (11.5-15.4); Immature Granulocytes % 0.7 % (0-4); Lymphocytes # 1.3 K/mcL (0.6-4.6); Lymphocytes % 11.3 %; Mean Corpuscular HGB Conc 32.8 g/dL (31.6-35.5); Mean Corpuscular Hemoglobin 28.3 pg (28.0-33.3); Mean Corpuscular Volume 86.4 fL (83.0-100.0); Monocytes # 0.7 K/mcL (0.0-1.3); Monocytes % 5.8 %; Neutrophils # 9.4 K/mcL (1.6-8.9); Platelet Count 247 K/mcL (140-400); Red Blood Count 2.72 M/mcL (3.82-4.97); Red Cell Distribution Width 14.5 % (11.5-14.5); Segmented Neutrophils % 80.4 %
[2018-07-30 04:39] LABS: BUN/Creatinine Ratio 16 (6-26); Blood Urea Nitrogen 6 mg/dL (8-23); Calcium 7.4 mg/dL (8.6-10.3); Carbon Dioxide 28 mEq/L (23-29); Chloride 101 mEq/L (98-107); Glucose 86 mg/dL (70-105); Magnesium 1.8 mg/dL (1.6-2.6); Osmolality,Calculated 275 (280-300); Phosphorous 2.8 mg/dL (2.7-4.5); Potassium 2.9 mEq/L (3.5-5.1); Sodium 134 mEq/L (136-145); eGFR For Non-African Americans > 60 (> 60)
[2018-07-30] MEDS: *HR* Heparin 5,000 UNIT/ML VIAL SQ SCH ×2 (05:49→18:13)
--- NOTE | 2018-07-30 08:15 | General Surgery Progress Note ---
<Nuvia Dempsey - Last Filed: 07/30/18 12:45> Date of Encounter: 07/30/18 Time of Encounter: 08:00 - Assessment and Plan (1) Diverticulitis of colon with perforation Current Visit: Yes Status: Acute Date of procedure: 07/24/18 Pre-op diagnosis: strangulated left inguinal hernia Post-op diagnosis: other (perforated diverticulitis with abscess) Procedure: exploratory laparotomy surgical drainage of abdominal wall abscess sigmoidectomy colostomy creation Surgeon Dr. Eastman POD #6 as above. Pt is recovering as expected. Patient is feeling better and tolerating regular diet. Cardiac diet Discontinue TPN continue supportive care and discomfort management while awaiting full return of bowel function serial abd exams repeat am labs PT/OT/SW wound care for new ostomy teaching OOB chair TID Amb with pt/ot continue IV ATBX Qualifiers: Diverticulitis bleeding: unspecified bleeding status Qualified Code(s): K57.20 - Diverticulitis of large intestine with perforation and abscess without bleeding Subjective Narrative: Patient seen and examined. No acute events overnight. Patient is resting comfortably in bed. Patient states shes doing great. Tolerating regular diet well. Denies abdominal pain, nausea/vomiting, or fever. Denies any other complaints. Objective Vital Signs - Last 8 Hours Temp Pulse Resp BP Pulse Ox 07/30/18 06:59 98.1 F 79 16 128/70 98 07/30/18 05:58 129/64 07/30/18 04:42 97.6 F 82 15 160/72 99 07/30/18 01:50 149/70 07/30/18 01:25 154/78 07/30/18 00:30 97.8 F 80 16 156/76 96 Intake and Output 07/29/18 07/30/18 07/30/18 23:59 07:59 15:59 Intake Total 260 / 260 0 / 0 Output Total 210 / 210 379 / 379 Balance 50 / 50 -379 / -379 Intake: IV Fluids 200 / 200 Zosyn 3.375 GM In 0.9 % Sodium 200 / 200 Chloride (Mini-Bag +) 100 ML @ 25 mls/hr IVPB Q8H [facility] Rx#: [id number] Oral 60 / 60 0 / 0 Output: Urine 0 / 0 200 / 200 Wound Drainage 210 / 210 179 / 179 drain A 180 / 180 159 / 159 drain b Other: # Voids 1 1 Blood Glucose* 101 84 - Additional Exam VITAL SIGNS: Reviewed. See [facility] GENERAL: In no apparent distress. HEENT: Normocephalic, atraumatic, pupils are equal and reactive, extraocular motions intact, oral mucosa pink and moist. CHEST/RESPIRATORY: The thorax is free from signs of trauma. Lung sounds: clear to auscultation, normal respiratory effort CARDIAC: Regular rate and rhythm. Normal S1 and S2, without murmurs, gallops, or rubs. VASCULAR: No edema. ABDOMEN: Soft. Nondistended. Nontender. Bowel sounds present. Colostomy site is pink and moist. Colostomy bag contains brown stool. INCISION: Incision sites are clean, dry, and intact. There is no sign of cellulitis or infection. WOUNDS/DRAINS: GIULIANO drain sites areWNL. Both GIULIANO bulbs contain serosanguinous fluid. MUSCULOSKELETAL: Good range of motion of all major joints. Extremities without clubbing or cyanosis. NEUROLOGIC EXAM: Alert and oriented x 3. Speech normal. Follows commands. PSYCHIATRIC: Mood normal. SKIN: No rash or lesions. - Labs 07/30/18 04:00 07/30/18 04:00 Diabetes panel 07/30/18 Range/Units 04:00 Sodium 134 L (136-145) mEq/L Potassium 2.9 L (3.5-5.1) mEq/L Chloride 101 (98-107) mEq/L Carbon Dioxide 28 (23-29) mEq/L BUN 6 L (8-23) mg/dL Creatinine 0.38 L (0.60-1.20) mg/dL Glucose 86 (70-105) mg/dL Calcium 7.4 L (8.6-10.3) mg/dL Calcium panel 07/30/18 Range/Units 04:00 Calcium 7.4 L (8.6-10.3) mg/dL Phosphorus 2.8 (2.7-4.5) mg/dL Pituitary panel 07/30/18 Range/Units 04:00 Sodium 134 L (136-145) mEq/L Potassium 2.9 L (3.5-5.1) mEq/L Chloride 101 (98-107) mEq/L Carbon Dioxide 28 (23-29) mEq/L BUN 6 L (8-23) mg/dL Creatinine 0.38 L (0.60-1.20) mg/dL Glucose 86 (70-105) mg/dL Calcium 7.4 L (8.6-10.3) mg/dL Adrenal panel 07/30/18 Range/Units 04:00 Sodium 134 L (136-145) mEq/L Potassium 2.9 L (3.5-5.1) mEq/L Chloride 101 (98-107) mEq/L Carbon Dioxide 28 (23-29) mEq/L BUN 6 L (8-23) mg/dL Creatinine 0.38 L (0.60-1.20) mg/dL Glucose 86 (70-105) mg/dL Calcium 7.4 L (8.6-10.3) mg/dL Consult Discharge Plan - Plan Referrals: Zuleyma Hills CNP [Primary Care Provider] - <Romel Eastman - Last Filed: 07/30/18 14:07> Date of Encounter: 07/30/18 - Assessment and Plan (1) Inguinal hernia with incarceration Current Visit: Yes Status: Acute Objective Vital Signs - Last 8 Hours Temp Pulse Resp BP Pulse Ox 07/30/18 12:24 98.1 F 84 16 138/78 97 07/30/18 06:59 98.1 F 79 16 128/70 98 Intake and Output 07/29/18 07/30/18 07/30/18 23:59 07:59 15:59 Intake Total 520 / 520 100 / 100 0 / 0 Output Total 210 / 210 379 / 379 100 / 100 Balance 310 / 310 -279 / -279 -100 / -100 Intake: IV Fluids 460 / 460 100 / 100 Zosyn 3.375 GM In 0.9 % Sodium 200 / 200 100 / 100 Chloride (Mini-Bag +) 100 ML @ 25 mls/hr IVPB Q8H [facility] Rx#: [id number] Oral 60 / 60 0 / 0 0 / 0 Output: Urine 0 / 0 200 / 200 Wound Drainage 210 / 210 179 / 179 100 / 100 drain A 180 / 180 159 / 159 75 / 75 drain b 30 / 30 20 / 20 25 / 25 Other: Meal Breakfast Percent of Meal Consumed 0% # Voids 1 1 1 Blood Glucose* 101 84 137 - Labs 07/30/18 04:00 07/30/18 04:00 Diabetes panel 07/30/18 Range/Units 04:00 Sodium 134 L (136-145) mEq/L Potassium 2.9 L (3.5-5.1) mEq/L Chloride 101 (98-107) mEq/L Carbon Dioxide 28 (23-29) mEq/L BUN 6 L (8-23) mg/dL Creatinine 0.38 L (0.60-1.20) mg/dL Glucose 86 (70-105) mg/dL Calcium 7.4 L (8.6-10.3) mg/dL Calcium panel 07/30/18 Range/Units 04:00 Calcium 7.4 L (8.6-10.3) mg/dL Phosphorus 2.8 (2.7-4.5) mg/dL Pituitary panel 07/30/18 Range/Units 04:00 Sodium 134 L (136-145) mEq/L Potassium 2.9 L (3.5-5.1) mEq/L Chloride 101 (98-107) mEq/L Carbon Dioxide 28 (23-29) mEq/L BUN 6 L (8-23) mg/dL Creatinine 0.38 L (0.60-1.20) mg/dL Glucose 86 (70-105) mg/dL Calcium 7.4 L (8.6-10.3) mg/dL Adrenal panel 07/30/18 Range/Units 04:00 Sodium 134 L (136-145) mEq/L Potassium 2.9 L (3.5-5.1) mEq/L Chloride 101 (98-107) mEq/L Carbon Dioxide 28 (23-29) mEq/L BUN 6 L (8-23) mg/dL Creatinine 0.38 L (0.60-1.20) mg/dL Glucose 86 (70-105) mg/dL Calcium 7.4 L (8.6-10.3) mg/dL - Attending Attestation I have personally seen and examined the patient. I have reviewed pertinent labs, imaging, progress notes, including this one. I have discussed the plan in thorough detail with the resident and nurse practitioner. I agree with the above assessment and plan.
[2018-07-30] MEDS: Pantoprazole 40 MG VIAL IVP SCH (08:56)
[2018-07-30] MEDS: Potassium Chloride 40 MEQ/200 ML BAG IVPB PRN (08:57)
[2018-07-30 18:57] LABS: VBG Ionized Calcium 1.12 mmol/L (1.15-1.35)
--- NOTE | 2018-07-31 02:58 | Event Note ---
Date of Encounter: 07/31/18 Time of Encounter: 02:11 Alerted by pts. nurse ALVINA Gallegos that pt. was A&O at start of shift but was now confused and complaining of being SOB. VS at the time: SpO2 96% on RA, BP 148/78, HR 109, temp 98.5F. Went to see pt. immediately. Pt. resting in bed and difficult to arouse at first. Pt. complaining of SOB and CP. Also complaining of leg pain. Nurse instructed to place pt. on O2 w/SpO2 monitoring @2L. EKG and stat troponin ordered. EKG shows SR w/moderate voltage criteria for LVH, consider normal variant. Troponin results <0.03. Paged Dr. Solomon who was enroute controller to alert her of the situation since this is a Surgery pt. Pt. was admitted for strangulated left inguinal hernia. Informed Dr. Solomon that I would alert her immediately of any new or adverse changes. Alerted by pts. nurse at 03:57 that pts. confusion was now worse and pt. was A&O only to self. Stat CT of the head/brain ordered which showed no acute intracranial hemorrhage, mass effect, or midline shift. No abnormal extra-axial fluid collection. The goodman-white differentiation is maintained without evidence of acute infarct. There is no evidence of hydrocephalus. 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 Additional patchy low attenuation in the white matter likely reflects chronic microvascular ischemia. Mild diffuse cerebral volume loss with proportional prominence of the ventricles and sulci. Nurse instructed to continue monitoring pt. closely and notify me or Dr. Solomon of any adverse changes.
[2018-07-31 03:14] LABS: Basophils % 0.1 %; Eosinophils % 0.4 %; Hematocrit 23.5 % (35.3-44.9); Hemoglobin 7.8 g/dL (11.5-15.4); Immature Granulocytes % 0.5 % (0-4); Lymphocytes # 1.2 K/mcL (0.6-4.6); Lymphocytes % 11.9 %; Mean Corpuscular HGB Conc 33.2 g/dL (31.6-35.5); Mean Corpuscular Volume 87.4 fL (83.0-100.0); Mean Platelet Volume 9.9 fL (9.4-12.4); Monocytes # 0.6 K/mcL (0.0-1.3); Neutrophils # 8.3 K/mcL (1.6-8.9); Platelet Count 263 K/mcL (140-400); Red Blood Count 2.69 M/mcL (3.82-4.97); Red Cell Distribution Width 15.1 % (11.5-14.5); Segmented Neutrophils % 81.1 %
[2018-07-31 03:33] LABS: BUN/Creatinine Ratio 18 (6-26); Blood Urea Nitrogen 9 mg/dL (8-23); Calcium 7.7 mg/dL (8.6-10.3); Carbon Dioxide 24 mEq/L (23-29); Chloride 104 mEq/L (98-107); Glucose 124 mg/dL (70-105); Magnesium 1.5 mg/dL (1.6-2.6); Osmolality,Calculated 278 (280-300); Phosphorous 2.7 mg/dL (2.7-4.5); Potassium 3.5 mEq/L (3.5-5.1); Sodium 134 mEq/L (136-145); eGFR For Non-African Americans > 60 (> 60)
[2018-07-31] MEDS: Piperacillin/Tazobactam 3.375 GM in 0.9 % Sodium Chloride Mini Bag 100 ML IVPB SCH ×3 (05:10→18:42)
[2018-07-31] MEDS: Insulin LISPRO 300 UNITS/3 ML VIAL SQ SCH ×4 (05:11→08:33)
[2018-07-31] MEDS: *HR* Heparin 5,000 UNIT/ML VIAL SQ SCH ×2 (05:18→18:43)
[2018-07-31] MEDS ORDERED: Magnesium Oxide 400 MG TABLET PO ONE (07:40)
--- NOTE | 2018-07-31 08:31 | General Surgery Progress Note ---
Addendum entered and electronically signed by Nuvia Dempsey 07/31/18 11:33: A/P 3) Severe Protein Calorie Malnutrition in context of chronic illness aeb severe muscle/fat wasting as noted and 24% unplanned wt loss x 9 months BMI 11.7 cardiac diet with dietary supplement monitor electrolytes and replete as needed nutrition consulted and following Original Note: <KeNuvia - Last Filed: 07/31/18 10:37> Date of Encounter: 07/31/18 Time of Encounter: 06:50 - Assessment and Plan (1) Diverticulitis of colon with perforation Current Visit: Yes Status: Acute Date of procedure: 07/24/18 Pre-op diagnosis: strangulated left inguinal hernia Post-op diagnosis: other (perforated diverticulitis with abscess) Procedure: exploratory laparotomy surgical drainage of abdominal wall abscess sigmoidectomy colostomy creation Surgeon Dr. Eastman POD #7 as above. Pt is recovering as expected. Patient is feeling better and tolerating regular diet. Cardiac diet Monitor electrolytes and replete as needed continue supportive care and discomfort management serial abd exams repeat am labs PT/OT/SW wound care for new ostomy teaching OOB chair TID Amb with pt/ot continue IV ATBX Qualifiers: Diverticulitis bleeding: unspecified bleeding status Qualified Code(s): K57.20 - Diverticulitis of large intestine with perforation and abscess without bleeding (2) Confusion Current Visit: Yes Status: Acute Episode of confusion last night Patient reports being confused sometimes Alert and oriented x3 this morning. But talked to her who is not in room. Cardiac workup was negative CT head showed no acute process Check CXR Check UA Subjective Narrative: Patient seen and examined. Nurse reports that patient was agitated and confused last night for. Was only oriented to person. Complained of chest pain and shortness of breath. Cardiac workup was negative. Head CT showed no acute process. Nurse reports that after 2.5-3 hours, patient was suddenly back to normal, drinking mountain dew, and wanting [employer]. This morning, patient states that she remembers what happened last night. States she does sometimes get confused. States she did not have chest pain or shortness of breath. She is alert and oriented x3. However, during the visit, she addresses her who is not in the room. Patient states she feels good today. Denies abdominal pain, nausea/vomiting, fever. Denies any other complaints. Objective Vital Signs - Last 8 Hours Temp Pulse Resp BP Pulse Ox 07/31/18 06:40 98.1 F 82 14 162/77 98 07/31/18 03:57 97.7 F 85 16 147/74 99 07/31/18 02:13 148/78 07/31/18 01:26 98.5 F 109 16 164/80 95 Intake and Output 07/30/18 07/31/18 07/31/18 23:59 07:59 15:59 Intake Total 660 / 660 0 / 0 Output Total 100 / 100 220 / 220 Balance 560 / 560 -220 / -220 Intake: IV Fluids 200 / 200 Zosyn 3.375 GM In 0.9 % Sodium 200 / 200 Chloride (Mini-Bag +) 100 ML @ 25 mls/hr IVPB Q8H [facility] Rx#: [id number] Oral 460 / 460 0 / 0 Output: Urine 150 / 150 Wound Drainage 100 / 100 70 / 70 drain A 90 / 90 60 / 60 drain b 10 Other: Meal Dinner Percent of Meal Consumed 100% # Voids 1 1 Blood Glucose* 101 86 - Additional Exam VITAL SIGNS: Reviewed. See [facility] GENERAL: In no apparent distress. HEENT: Normocephalic, atraumatic, pupils are equal and reactive, extraocular motions intact, oral mucosa pink and moist. CHEST/RESPIRATORY: The thorax is free from signs of trauma. Lung sounds: clear to auscultation, normal respiratory effort CARDIAC: Regular rate and rhythm. Normal S1 and S2, without murmurs, gallops, or rubs. VASCULAR: No edema. ABDOMEN: Soft. Nondistended. Nontender. Bowel sounds present. Colostomy site is pink and moist. Colostomy bag contains gas and brown stool. INCISION: Incision sites are clean, dry, and intact. There is no sign of cellulitis or infection. WOUNDS/DRAINS: GIULIANO drain sites areWNL. Both GIULIANO bulbs contain serosanguinous fluid. MUSCULOSKELETAL: Good range of motion of all major joints. Extremities without clubbing or cyanosis. NEUROLOGIC EXAM: Alert and oriented x 3. Speech normal. Follows commands. PSYCHIATRIC: Mood normal. SKIN: No rash or lesions. - Labs 07/31/18 03:01 07/31/18 03:01 Diabetes panel 07/31/18 Range/Units 03:01 Sodium 134 L (136-145) mEq/L Potassium 3.5 (3.5-5.1) mEq/L Chloride 104 (98-107) mEq/L Carbon Dioxide 24 (23-29) mEq/L BUN 9 (8-23) mg/dL Creatinine 0.50 L (0.60-1.20) mg/dL Glucose 124 H (70-105) mg/dL Calcium 7.7 L (8.6-10.3) mg/dL Calcium panel 07/31/18 Range/Units 03:01 Calcium 7.7 L (8.6-10.3) mg/dL Phosphorus 2.7 (2.7-4.5) mg/dL Pituitary panel 07/31/18 Range/Units 03:01 Sodium 134 L (136-145) mEq/L Potassium 3.5 (3.5-5.1) mEq/L Chloride 104 (98-107) mEq/L Carbon Dioxide 24 (23-29) mEq/L BUN 9 (8-23) mg/dL Creatinine 0.50 L (0.60-1.20) mg/dL Glucose 124 H (70-105) mg/dL Calcium 7.7 L (8.6-10.3) mg/dL Adrenal panel 07/31/18 Range/Units 03:01 Sodium 134 L (136-145) mEq/L Potassium 3.5 (3.5-5.1) mEq/L Chloride 104 (98-107) mEq/L Carbon Dioxide 24 (23-29) mEq/L BUN 9 (8-23) mg/dL Creatinine 0.50 L (0.60-1.20) mg/dL Glucose 124 H (70-105) mg/dL Calcium 7.7 L (8.6-10.3) mg/dL Consult Discharge Plan - Plan Referrals: Zuleyma Hills, [employer] [Primary Care Provider] - <Romel Eastman - Last Filed: 08/01/18 14:30> Date of Encounter: 08/01/18 - Assessment and Plan (1) Inguinal hernia with incarceration Current Visit: Yes Status: Acute Objective Vital Signs - Last 8 Hours Temp Pulse Resp BP Pulse Ox 08/01/18 11:30 98.0 F 84 17 112/67 100 08/01/18 06:39 97.6 F 76 16 137/65 98 Intake and Output 03/05/19 03/06/19 03/06/19 23:59 07:59 15:59 Intake Total 200 / 200 100 / 100 914 / 914 Output Total 0 / 0 400 / 400 Balance 200 / 200 -300 / -300 914 / 914 Intake: IV Fluids 200 / 200 100 / 100 554 / 554 Levaquin Premix 750mg/150 mL 150 / 150 750 mg In 150 ml @ 100 mls/hr IVPB DAILY [facility] Rx#:[id number] Magnesium Sulfate 2 GM In 0.9 % 104 / 104 Sodium Chloride 100 ML @ 52 mls/hr IVPB Q6H [facility] Rx#: [id number] Flagyl Premix 500 MG/100 ML 500 100 / 100 mg In 100 ml @ 100 mls/hr IVPB Q8HR [facility] Rx#:[id number] Zosyn 3.375 GM In 0.9 % Sodium 200 / 200 100 / 100 Chloride (Mini-Bag +) 100 ML @ 25 mls/hr IVPB Q8H [facility] Rx#: [id number] Potassium Chloride 20 mEq/100 200 / 200 mL 40 meq In 200 ml @ 100 mls/ hr IVPB Q1H [facility] Rx#:[id number] Oral 0 / 0 0 / 0 360 / 360 Output: Urine 0 / 0 150 / 150 Stool 250 / 250 Other: Meal Lunch Percent of Meal Consumed 25% # Voids 2 Weight 34.7 kg Patient Weight 08/01/18 23:59 Weight 34.7 kg - Labs 08/01/18 03:38 08/01/18 03:38 Diabetes panel 08/01/18 Range/Units 03:38 Sodium 137 (136-145) mEq/L Potassium 3.2 L (3.5-5.1) mEq/L Chloride 102 (98-107) mEq/L Carbon Dioxide 27 (23-29) mEq/L BUN 11 (8-23) mg/dL Creatinine 0.55 L (0.60-1.20) mg/dL Glucose 122 H (70-105) mg/dL Calcium 8.1 L (8.6-10.3) mg/dL Calcium panel 08/01/18 Range/Units 03:38 Calcium 8.1 L (8.6-10.3) mg/dL Phosphorus 3.1 (2.7-4.5) mg/dL Pituitary panel 08/01/18 Range/Units 03:38 Sodium 137 (136-145) mEq/L Potassium 3.2 L (3.5-5.1) mEq/L Chloride 102 (98-107) mEq/L Carbon Dioxide 27 (23-29) mEq/L BUN 11 (8-23) mg/dL Creatinine 0.55 L (0.60-1.20) mg/dL Glucose 122 H (70-105) mg/dL Calcium 8.1 L (8.6-10.3) mg/dL Adrenal panel 08/01/18 Range/Units 03:38 Sodium 137 (136-145) mEq/L Potassium 3.2 L (3.5-5.1) mEq/L Chloride 102 (98-107) mEq/L Carbon Dioxide 27 (23-29) mEq/L BUN 11 (8-23) mg/dL Creatinine 0.55 L (0.60-1.20) mg/dL Glucose 122 H (70-105) mg/dL Calcium 8.1 L (8.6-10.3) mg/dL - Attending Attestation patient seen and examined. i have reviewed all labs, imaging, and notes. i have discussed the case in detail with the resident. i agree with the above assessment and plan.
[2018-07-31] MEDS: Pantoprazole 40 MG VIAL IVP SCH (08:49)
[2018-07-31] MEDS: *HR* Metoprolol 5 MG/5 ML VIAL IVP PRN (08:49)
[2018-07-31 16:57] LABS: Bilirubin,Urine Negative (Negative); Blood,Urine Negative (Negative); Clarity,Urine Clear (Clear); Color,Urine Yellow (Yellow); Glucose,Urine (UA) Normal (Normal); Ketones,Urine Negative (Negative); Leukocyte Esterase,Urine Negative (Negative); Nitrite,Urine Negative (Negative); Protein,Urine Negative (Neg-Trace); Specific Gravity,Urine 1.013 (1.010-1.025); Urobilinogen,Urine Normal (Normal)
--- NOTE | 2018-07-31 21:05 | Electrocardiograph Report ---
[place] [id number] Test Date: 2018-07-31 Pat Name: Wen Thayer Department: 115 Room: 3A46 Gender: F [place] Drier: : 1945 Requested By: Cezar Burks Order Number: [id number] Reading MD: Huma Armstrong Measurements Intervals [place] Rate: 85 P: 14 AR: 122 QRS: 38 QRSD: 78 T: 61 QT: 333 QTc: 375 Interpretive Statements SINUS RHYTHM MODERATE VOLTAGE CRITERIA FOR LVH, CONSIDER NORMAL VARIANT Electronically Signed On 07-31-2018 21:04:34 EST by Huma Armstrong
[2018-08-01] MEDS: Piperacillin/Tazobactam 3.375 GM in 0.9 % Sodium Chloride Mini Bag 100 ML IVPB SCH (03:02)
[2018-08-01 03:50] LABS: Basophils % 0.1 %; Eosinophils # 0.1 K/mcL (0.0-0.6); Eosinophils % 1.7 %; Hematocrit 24.1 % (35.3-44.9); Immature Granulocytes % 0.8 % (0-4); Lymphocytes # 1.2 K/mcL (0.6-4.6); Lymphocytes % 14.4 %; Mean Corpuscular HGB Conc 33.2 g/dL (31.6-35.5); Mean Corpuscular Hemoglobin 29.1 pg (28.0-33.3); Mean Corpuscular Volume 87.6 fL (83.0-100.0); Mean Platelet Volume 9.7 fL (9.4-12.4); Monocytes # 0.6 K/mcL (0.0-1.3); Neutrophils # 6.3 K/mcL (1.6-8.9); Platelet Count 329 K/mcL (140-400); Red Blood Count 2.75 M/mcL (3.82-4.97); Red Cell Distribution Width 15.8 % (11.5-14.5)
[2018-08-01 04:09] LABS: BUN/Creatinine Ratio 20 (6-26); Blood Urea Nitrogen 11 mg/dL (8-23); Calcium 8.1 mg/dL (8.6-10.3); Carbon Dioxide 27 mEq/L (23-29); Chloride 102 mEq/L (98-107); Glucose 122 mg/dL (70-105); Magnesium 1.7 mg/dL (1.6-2.6); Osmolality,Calculated 285 (280-300); Phosphorous 3.1 mg/dL (2.7-4.5); Potassium 3.2 mEq/L (3.5-5.1); Sodium 137 mEq/L (136-145); eGFR For Non-African Americans > 60 (> 60)
[2018-08-01] MEDS: *HR* Metoprolol 5 MG/5 ML VIAL IVP PRN (06:14)
[2018-08-01] MEDS: *HR* Heparin 5,000 UNIT/ML VIAL SQ SCH ×2 (06:18→18:32)
[2018-08-01] MEDS: Potassium Chloride 40 MEQ/200 ML BAG IVPB PRN (06:47)
--- NOTE | 2018-08-01 07:52 | General Surgery Progress Note ---
Addendum entered and electronically signed by Nuvia Dempsey 08/01/18 12:16: Social Work consulted for discharge planning (ECF). Plan for discharge in 24-48 hours. Continue IV abx - levaquin + flagyl. Transition to PO abx tomorrow. On discharge, PO abx for 5 days. Original Note: <Nuvia Dempsey - Last Filed: 08/01/18 07:50> Date of Encounter: 08/01/18 Time of Encounter: 06:40 - Assessment and Plan (1) Diverticulitis of colon with perforation Current Visit: Yes Status: Acute Date of procedure: 07/24/18 Pre-op diagnosis: strangulated left inguinal hernia Post-op diagnosis: other (perforated diverticulitis with abscess) Procedure: exploratory laparotomy surgical drainage of abdominal wall abscess sigmoidectomy colostomy creation Surgeon Dr. Eastman POD #8 as above. Pt is recovering as expected. Patient is feeling better and tolerating regular diet. Cardiac diet Monitor electrolytes and replete as needed continue supportive care and discomfort management serial abd exams repeat am labs PT/OT/SW wound care for new ostomy teaching OOB chair TID Amb with pt/ot continue IV ATBX - dc zosyn, start Levaquin + flagyl. Qualifiers: Diverticulitis bleeding: unspecified bleeding status Qualified Code(s): K57.20 - Diverticulitis of large intestine with perforation and abscess without bleeding (2) Confusion Current Visit: Yes Status: Acute Confusion since 2 nights ago No history of confusion at home Cardiac workup was negative CT head showed no acute process CXR showed atelectasis UA was negative No leukocytosis Likely Sundowners secondary to illness, surgery, and hospitalization Alert and oriented x3 this morning. From abdominal surgical standpoint, patient is much improved. Will plan to discharge patient as soon as possible to alleviate Sundowners. Discussed with family that patient needs to go to ECF on discharge. (3) Severe protein-calorie malnutrition Current Visit: Yes Status: Acute in context of chronic illness aeb severe muscle/fat wasting as noted and 24% unplanned wt loss x 9 months BMI 11.7 cardiac diet with dietary supplement monitor electrolytes and replete as needed nutrition consulted and following Subjective Narrative: Patient seen and examined. Yesterday, patient was confused throughout the whole day and into last night. Patient fell last night. Stated she didnt hurt anyt bj. Patient continued to try to get out of bed by herself and a sitter was placed. This morning, sitter states that patient continues to be confused. Family states that she is never confused at home. Patient is oriented to person, place, and time. Patient states that she feels good. Denies any abdominal pain, nausea/vomiting, or fever. Denies any other complaints. Patient wants to go home. It was discussed with family that patient needs to go to [facility] on discharge. Objective Vital Signs - Last 8 Hours Temp Pulse Resp BP Pulse Ox 08/01/18 06:39 97.6 F 76 16 137/65 98 08/01/18 06:27 98.1 F 81 16 157/78 98 08/01/18 06:10 109 16 166/91 98 08/01/18 05:50 98.1 F 85 16 152/72 98 08/01/18 05:27 97.9 F 103 16 165/85 98 08/01/18 05:05 97.5 F L 81 14 139/72 98 08/01/18 04:35 97.9 F 91 16 153/74 98 08/01/18 04:20 97.8 F 79 16 145/77 97 08/01/18 02:47 97.5 F L 82 15 126/66 99 Intake and Output 07/31/18 07/31/18 08/01/18 15:59 23:59 07:59 Intake Total 100 / 100 200 / 200 100 / 100 Output Total 30 / 30 0 / 0 400 / 400 Balance 70 / 70 200 / 200 -300 / -300 Intake: IV Fluids 100 / 100 200 / 200 100 / 100 Zosyn 3.375 GM In 0.9 % Sodium 100 / 100 200 / 200 100 / 100 Chloride (Mini-Bag +) 100 ML @ 25 mls/hr IVPB Q8H [facility] Rx#: [id number] Oral 0 / 0 0 / 0 0 / 0 Output: Urine 0 / 0 150 / 150 Stool 250 / 250 Wound Drainage 30 / 30 drain A 20 / 20 drain b 10 / 10 Other: Meal Lunch Percent of Meal Consumed 0% # Voids 2 Weight 34.7 kg Patient Weight 08/01/18 23:59 Weight 34.7 kg - Additional Exam VITAL SIGNS: Reviewed. See [facility] GENERAL: In no apparent distress. HEENT: Normocephalic, atraumatic, pupils are equal and reactive, extraocular motions intact, oral mucosa pink and moist. CHEST/RESPIRATORY: The thorax is free from signs of trauma. Lung sounds: clear to auscultation, normal respiratory effort CARDIAC: Regular rate and rhythm. Normal S1 and S2, without murmurs, gallops, or rubs. VASCULAR: No edema. ABDOMEN: Soft. Nondistended. Nontender. Bowel sounds present. Colostomy site is pink and moist. Colostomy bag contains gas and brown stool. INCISION: Incision sites are clean, dry, and intact. There is no sign of cellulitis or infection. MUSCULOSKELETAL: Good range of motion of all major joints. Extremities without clubbing or cyanosis. NEUROLOGIC EXAM: Alert and oriented x 3. Speech normal. Follows commands. PSYCHIATRIC: Mood normal. SKIN: No rash or lesions. - Labs 08/01/18 03:38 08/01/18 03:38 Diabetes panel 08/01/18 Range/Units 03:38 Sodium 137 (136-145) mEq/L Potassium 3.2 L (3.5-5.1) mEq/L Chloride 102 (98-107) mEq/L Carbon Dioxide 27 (23-29) mEq/L BUN 11 (8-23) mg/dL Creatinine 0.55 L (0.60-1.20) mg/dL Glucose 122 H (70-105) mg/dL Calcium 8.1 L (8.6-10.3) mg/dL Calcium panel 08/01/18 Range/Units 03:38 Calcium 8.1 L (8.6-10.3) mg/dL Phosphorus 3.1 (2.7-4.5) mg/dL Pituitary panel 08/01/18 Range/Units 03:38 Sodium 137 (136-145) mEq/L Potassium 3.2 L (3.5-5.1) mEq/L Chloride 102 (98-107) mEq/L Carbon Dioxide 27 (23-29) mEq/L BUN 11 (8-23) mg/dL Creatinine 0.55 L (0.60-1.20) mg/dL Glucose 122 H (70-105) mg/dL Calcium 8.1 L (8.6-10.3) mg/dL Adrenal panel 08/01/18 Range/Units 03:38 Sodium 137 (136-145) mEq/L Potassium 3.2 L (3.5-5.1) mEq/L Chloride 102 (98-107) mEq/L Carbon Dioxide 27 (23-29) mEq/L BUN 11 (8-23) mg/dL Creatinine 0.55 L (0.60-1.20) mg/dL Glucose 122 H (70-105) mg/dL Calcium 8.1 L (8.6-10.3) mg/dL Consult Discharge Plan - Plan Referrals: Zuleyma Hills, CFA [Primary Care Provider] - <Romel Eastman - Last Filed: 08/01/18 14:27> Date of Encounter: 08/01/18 - Assessment and Plan (1) Inguinal hernia with incarceration Current Visit: Yes Status: Acute Objective Vital Signs - Last 8 Hours Temp Pulse Resp BP Pulse Ox 08/01/18 11:30 98.0 F 84 17 112/67 100 08/01/18 06:39 97.6 F 76 16 137/65 98 08/01/18 06:27 98.1 F 81 16 157/78 98 Intake and Output 07/31/18 08/01/18 08/01/18 23:59 07:59 15:59 Intake Total 200 / 200 100 / 100 914 / 914 Output Total 0 / 0 400 / 400 Balance 200 / 200 -300 / -300 914 / 914 Intake: IV Fluids 200 / 200 100 / 100 554 / 554 Levaquin Premix 750mg/150 mL 150 / 150 750 mg In 150 ml @ 100 mls/hr IVPB DAILY [facility] Rx#:[id number] Magnesium Sulfate 2 GM In 0.9 % 104 / 104 Sodium Chloride 100 ML @ 52 mls/hr IVPB Q6H [facility]N Rx#: [id number] Flagyl Premix 500 MG/100 ML 500 100 / 100 mg In 100 ml @ 100 mls/hr IVPB Q8HR [facility] Rx#:[id number] Zosyn 3.375 GM In 0.9 % Sodium 200 / 200 100 / 100 Chloride (Mini-Bag +) 100 ML @ 25 mls/hr IVPB Q8H [facility] Rx#: [id number] Potassium Chloride 20 mEq/100 200 / 200 mL 40 meq In 200 ml @ 100 mls/ hr IVPB Q1H [facility]N Rx#:[id number] Oral 0 / 0 0 / 0 360 / 360 Output: Urine 0 / 0 150 / 150 Stool 250 / 250 Other: Meal Lunch Percent of Meal Consumed 25% # Voids 2 Weight 34.7 kg Patient Weight 08/01/18 23:59 Weight 34.7 kg - Labs 08/01/18 03:38 08/01/18 03:38 Diabetes panel 08/01/18 Range/Units 03:38 Sodium 137 (136-145) mEq/L Potassium 3.2 L (3.5-5.1) mEq/L Chloride 102 (98-107) mEq/L Carbon Dioxide 27 (23-29) mEq/L BUN 11 (8-23) mg/dL Creatinine 0.55 L (0.60-1.20) mg/dL Glucose 122 H (70-105) mg/dL Calcium 8.1 L (8.6-10.3) mg/dL Calcium panel 08/01/18 Range/Units 03:38 Calcium 8.1 L (8.6-10.3) mg/dL Phosphorus 3.1 (2.7-4.5) mg/dL Pituitary panel 08/01/18 Range/Units 03:38 Sodium 137 (136-145) mEq/L Potassium 3.2 L (3.5-5.1) mEq/L Chloride 102 (98-107) mEq/L Carbon Dioxide 27 (23-29) mEq/L BUN 11 (8-23) mg/dL Creatinine 0.55 L (0.60-1.20) mg/dL Glucose 122 H (70-105) mg/dL Calcium 8.1 L (8.6-10.3) mg/dL Adrenal panel 08/01/18 Range/Units 03:38 Sodium 137 (136-145) mEq/L Potassium 3.2 L (3.5-5.1) mEq/L Chloride 102 (98-107) mEq/L Carbon Dioxide 27 (23-29) mEq/L BUN 11 (8-23) mg/dL Creatinine 0.55 L (0.60-1.20) mg/dL Glucose 122 H (70-105) mg/dL Calcium 8.1 L (8.6-10.3) mg/dL - Attending Attestation patient seen and examined. i have reviewed all labs, imaging, and notes. i have discussed the case in detail with the resident. i agree with the above assessment and plan and wish to add the following... POD #8 s/p desouza's, drainage of abdominal wall abscess; normal WBC, el ectrolytes improved, colostomy functioning; altered mental status; likely related to age and over all hospital course; no recent drugs given that would account for symptoms; s/p fall overnight; diet as tolerated change abx to levaquin and flagyl per sensitivities recommend SNF or long term at discharge; discussed with patient who is in agreement activity as tolerated wean tpn
[2018-08-01] MEDS ORDERED: Levofloxacin 750 MG/150 ML 750 MG/150 ML BAG IVPB SCH (09:00)
[2018-08-01] MEDS: MetroNIDAZOLE 500 MG/100 ML 500 MG/100 ML BAG IVPB SCH ×2 (09:58→15:45)
[2018-08-01] MEDS: Pantoprazole 40 MG VIAL IVP SCH (09:58)
[2018-08-02] MEDS: MetroNIDAZOLE 500 MG/100 ML 500 MG/100 ML BAG IVPB SCH ×3 (00:02→18:06)
[2018-08-02] MEDS: *HR* Heparin 5,000 UNIT/ML VIAL SQ SCH ×2 (05:33→18:07)
[2018-08-02 05:39] LABS: Basophils % 0.2 %; Eosinophils # 0.1 K/mcL (0.0-0.6); Eosinophils % 1.5 %; Hematocrit 22.8 % (35.3-44.9); Hemoglobin 7.5 g/dL (11.5-15.4); Immature Granulocytes % 0.6 % (0-4); Lymphocytes # 0.9 K/mcL (0.6-4.6); Lymphocytes % 13.9 %; Mean Corpuscular HGB Conc 32.9 g/dL (31.6-35.5); Mean Corpuscular Hemoglobin 29.3 pg (28.0-33.3); Mean Corpuscular Volume 89.1 fL (83.0-100.0); Mean Platelet Volume 9.6 fL (9.4-12.4); Monocytes # 0.6 K/mcL (0.0-1.3); Monocytes % 8.6 %; Platelet Count 292 K/mcL (140-400); Red Blood Count 2.56 M/mcL (3.82-4.97); Red Cell Distribution Width 16.4 % (11.5-14.5); Segmented Neutrophils % 75.2 %
[2018-08-02 05:42] LABS: VBG Ionized Calcium 1.12 mmol/L (1.15-1.35)
[2018-08-02 05:56] LABS: BUN/Creatinine Ratio 23 (6-26); Blood Urea Nitrogen 11 mg/dL (8-23); Calcium 7.7 mg/dL (8.6-10.3); Carbon Dioxide 28 mEq/L (23-29); Chloride 104 mEq/L (98-107); Glucose 99 mg/dL (70-105); Magnesium 1.7 mg/dL (1.6-2.6); Osmolality,Calculated 279 (280-300); Phosphorous 2.9 mg/dL (2.7-4.5); Potassium 3.7 mEq/L (3.5-5.1); Sodium 135 mEq/L (136-145); eGFR For Non-African Americans > 60 (> 60)
--- NOTE | 2018-08-02 08:14 | Discharge Summary ---
Orders not resulted at time of discharge: Pending orders 07/24/18 01:15 Culture,Anaerobic [] Routine 07/24/18 02:03 US anesthesia pain block [US] Routine Date of Encounter: 08/02/18 - Discharge Diagnosis (1) Diverticulitis of colon with perforation Status: Acute Qualifiers: Diverticulitis bleeding: unspecified bleeding status Qualified Code(s): K57.20 - Diverticulitis of large intestine with perforation and abscess without bleeding General Surgery Exam Initial Vital Signs Temp Pulse Resp BP Pulse Ox 98.6 F 83 18 116/68 98 07/23/18 15:17 07/23/18 15:17 07/23/18 15:17 07/23/18 15:17 07/23/18 15:17 - Hospital Course Hospital course: Ms. Thayer is a 72 year old female - Time Spent with Patient Total time spent providing and/or coordinating discharge services: - Discharge Medications Prescriptions: No Action Atorvastatin [Lipitor] 40 mg PO DAILY amLODIPine [Norvasc] 5 mg PO DAILY Magnesium Oxide [Magnesium] 250 mg PO DAILY Clopidogrel [Plavix] 75 mg PO DAILY clonazePAM [Klonopin] 1 mg PO BID PRN PRN Reason: Anxiety Atenolol [Tenormin] 25 mg PO DAILY Nitroglycerin [Nitrostat] 0.4 mg SL Q5M PRN PRN Reason: Chest Pain Potassium Chloride [K-Tab ER] 10 meq PO DAILY Cholecalciferol (Vitamin D3) [Dialyvite Vitamin D] 5,000 unit PO DAILY Home Medications: Atenolol [Tenormin] 25 mg PO DAILY 10/18/17 [History] Atorvastatin [Lipitor] 40 mg PO DAILY 10/18/17 [History] Clopidogrel [Plavix] 75 mg PO DAILY 10/18/17 [History] Magnesium Oxide [Magnesium] 250 mg PO DAILY 10/18/17 [History] Nitroglycerin [Nitrostat] 0.4 mg SL Q5M PRN 10/18/17 [History] amLODIPine [Norvasc] 5 mg PO DAILY 10/18/17 [History] clonazePAM [Klonopin] 1 mg PO BID PRN 10/18/17 [History] Potassium Chloride [K-Tab ER] 10 meq PO DAILY 07/16/18 [History] Cholecalciferol (Vitamin D3) [Dialyvite Vitamin D] 5,000 unit PO DAILY 07/23/18 [History] Allergies/Adverse Reactions: Allergy/AdvReac Type Severity Reaction Status Date / Time codeine AdvReac Nausea Verified 07/16/18 12:15 Date of admission: 07/24/18 14:38 Primary care physician: Zuleyma Hills CNP Consults: 07/24/18 13:13 consult to leather goods i assembler [Consult to Nutrition] [CONS] Stat Comment: Consulting Provider: NUTRITION Reason for Dietary Consult: TPN Start and Manage 07/24/18 13:28 Consult to Invasive Line Access Team [CONS] Routine Reason for Consult: placment of PICC line for TPN Line Type: PICC Consult to Wound Care [CONS] Routine Reason for Consult: ostomy teaching Call Completed: Yes 07/25/18 08:00 Consult to Occupational Therapy [CONS] Routine Comment: Evaluate, develop and implement POC Reason for Consult: Mobilization and d.c. planning Does patient have active BEDREST order?: No Is patient medically & hemodynamically stable?: Yes Patient assessed for mobility or mobilized this visit?: No Consult to Physical Therapy [CONS] Routine Comment: Evaluate, develop and implement POC Reason for Consult: Mobilization and d.c. planning Does patient have active BEDREST order?: No Is patient medically & hemodynamically stable?: Yes Patient assessed for mobility or mobilized this visit?: No Consult to Budget Director [CONS] Routine Reason for SW Consult: placement vs HHC 08/01/18 08:00 Consult to Budget Director [CONS] Routine Reason for SW Consult: Will need ECF placement; Patient confused and had a recent fall yesterday. Please talk with family. Labs on day of discharge: Labs from last 24 hours 08/02/18 08/02/18 08/02/18 05:39 05:26 05:26 WBC 6.6 RBC 2.56 L Hgb 7.5 L Hct 22.8 L MCV 89.1 MCH 29.3 MCHC 32.9 RDW 16.4 H Plt Count 292 MPV 9.6 Immature Gran % 0.6 Seg Neutrophils % 75.2 Lymphocytes % 13.9 Monocytes % 8.6 Eosinophils % 1.5 Basophils % 0.2 Neutrophils # 5.0 Lymphocytes # 0.9 Monocytes # 0.6 Eosinophils # 0.1 Basophils # 0.0 Sodium 135 L Potassium 3.7 Chloride 104 Carbon Dioxide 28 BUN 11 Creatinine 0.47 L Est GFR ( Amer) > 60 Est GFR (Non-Af Amer) > 60 BUN/Creatinine Ratio 23 Glucose 99 Calculated Osmolality 279 L Calcium 7.7 L Venous Ioniz Calcium 1.12 L Phosphorus 2.9 Magnesium 1.7 Preliminary micro results at discharge 07/24/18 01:15 Anaerobic Culture - Preliminary Abscess Anaerobic Gram Positive Cocci Anaerobic Gram Positive Cocci#2 Anaerobic Gram Positive Ravind - Impressions ITS Impressions Abdomen/Pelvis CT 07/23/18 17:15 IMPRESSION: Large left inguinal hernia containing a loop of colon, difficult to determine whether this is a loop of the sigmoid colon or the distal transverse low lying colon. There is focal dilation of colon in this location suggesting obstruction. Findings also concerning for strangulation given history of pain. Surgical consultation is recommended if not already performed. Additionally, delayed imaging with a CT of the abdomen and pelvis in 2 hours would be useful to evaluate for passage of the oral contrast. This could also re-evaluated whether the adjacent wall thickening in the sigmoid colon is due to collapse or colitis. Lesion of the superior pole right kidney increased in size concerning for malignancy. Follow-up is recommended. Consider urology consultation. Pre and post contrast renal mass protocol CT or MRI examination suggested. D/ / Colten Sanchez MD / Colten Sanchez MD Interpreting Provider: Colten Sanchez MD Head CT 07/31/18 04:00 IMPRESSION: No acute intracranial abnormality. Mild cerebral volume loss with chronic microvascular ischemic disease and remote right basal ganglial infarct. D/ / Sunny Kauffman / Sunny Kauffman Interpreting Provider: Sunny Kauffman Chest X-Ray 07/31/18 07:38 IMPRESSION: In this patient with COPD, ground-glass opacification at the left lung base may represent atelectasis or developing pneumonitis. D/ / Mejia Sloan MD / Mejia Sloan MD Interpreting Provider: Mejia Sloan MD - Patient Status Condition: Undetermined - Discharge Instructions Follow Up With: Zuleyma Hills CNP [Primary Care Provider] -
[2018-08-02] MEDS: Pantoprazole 40 MG VIAL IVP SCH (09:55)
[2018-08-02] MEDS ORDERED: clonazePAM 1 MG TABLET PO PRN (12:59)
--- NOTE | 2018-08-02 13:04 | General Surgery Progress Note ---
<Karyn Martin - Last Filed: 08/02/18 12:57> Date of Encounter: 08/02/18 Time of Encounter: 12:57 - Assessment and Plan (1) Diverticulitis of colon with perforation Current Visit: Yes Status: Acute Date of procedure: 07/24/18 Pre-op diagnosis: strangulated left inguinal hernia Post-op diagnosis: other (perforated diverticulitis with abscess) Procedure: exploratory laparotomy surgical drainage of abdominal wall abscess sigmoidectomy colostomy creation Surgeon Dr. Eastman POD #9 as above. Noted sitter at bedside 08/01/2018 d/t confusion and fall. She is sleeping soundly at the time of this assessment (0715). Sitter and nurse report patient has not "slept," in 2-3 days. Noted she is on Klonapin BID at home for anxiety. We will resume this medication. D/c stter (noon) and d/c to ecf when sitter free for 24-hours. Plavix not restarted dt fall Continue IV ATBX transition to PO antibiotics tomorrow no need for repeat labs serial abdominal exams continue to closely monitor Qualifiers: Diverticulitis bleeding: unspecified bleeding status Qualified Code(s): K57.20 - Diverticulitis of large intestine with perforation and abscess without bleeding (2) Confusion Current Visit: Yes Status: Acute sundowners vs sleep deprivation Restart Klonopin, if this is not effective, can try trazodone continue to monitor sitter d/c'd as above Subjective Narrative: Pt sleeping soundly a time f asst. Sitter at bedside. Objective Intake and Output 08/01/18 08/02/18 08/02/18 23:59 07:59 15:59 Intake Total 300 / 300 100 / 100 340 / 340 Balance 300 / 300 100 / 100 340 / 340 Intake: IV Fluids 100 / 100 100 / 100 Flagyl Premix 500 MG/100 ML 500 100 / 100 100 / 100 mg In 100 ml @ 100 mls/hr IVPB Q8HR [facility] Rx#:[id number] Oral 200 / 200 340 / 340 Other: Meal Dinner Breakfast Percent of Meal Consumed 10% 30% # Urine Diapers 1 1 Weight 33.6 kg Patient Weight 08/02/18 23:59 Weight 33.6 kg - General physical appearance no distress, other (sleeping) - ENT normal nares, normal mucosa - Neck Neck exam: trachea midline - Respiratory normal expansion, clear to auscultation - Cardiovascular Cardiovascular exam: Present: RRR - Abdomen Abdomen: Present: bowel sounds present, soft, non tender (sleeping) - Incision Incision: Present: clean and dry, intact - Integumentary no rash - Neurologic other (sleeping; sitter at bedside; d/c'd at 1200) - Musculoskeletal other - Psychiatric other - Labs 08/02/18 05:26 08/02/18 05:26 Diabetes panel 08/02/18 Range/Units 05:26 Sodium 135 L (136-145) mEq/L Potassium 3.7 (3.5-5.1) mEq/L Chloride 104 (98-107) mEq/L Carbon Dioxide 28 (23-29) mEq/L BUN 11 (8-23) mg/dL Creatinine 0.47 L (0.60-1.20) mg/dL Glucose 99 (70-105) mg/dL Calcium 7.7 L (8.6-10.3) mg/dL Calcium panel 08/02/18 Range/Units 05:26 Calcium 7.7 L (8.6-10.3) mg/dL Phosphorus 2.9 (2.7-4.5) mg/dL Pituitary panel 08/02/18 Range/Units 05:26 Sodium 135 L (136-145) mEq/L Potassium 3.7 (3.5-5.1) mEq/L Chloride 104 (98-107) mEq/L Carbon Dioxide 28 (23-29) mEq/L BUN 11 (8-23) mg/dL Creatinine 0.47 L (0.60-1.20) mg/dL Glucose 99 (70-105) mg/dL Calcium 7.7 L (8.6-10.3) mg/dL Adrenal panel 08/02/18 Range/Units 05:26 Sodium 135 L (136-145) mEq/L Potassium 3.7 (3.5-5.1) mEq/L Chloride 104 (98-107) mEq/L Carbon Dioxide 28 (23-29) mEq/L BUN 11 (8-23) mg/dL Creatinine 0.47 L (0.60-1.20) mg/dL Glucose 99 (70-105) mg/dL Calcium 7.7 L (8.6-10.3) mg/dL Consult Discharge Plan - Plan Instructions: Colostomy Care (DC) Additional Instructions: General Surgical Discharge Instructions 1. No pushing, pulling, or lifting greater than 15 lbs for 2-4 weeks (depending upon procedure). 2. You may shower beginning today, but no tub baths, soaking, or swimming for 2 weeks. 3. You may resume driving when you are off narcotics and are safe to react in a car. 4. Take ibuprofen every 8 hours for discomfort. If this does not relieve discomfort, you may take the as needed Percocet. Take narcotics as directed. Do not take more narcotics then directed and do not share your narcotics with any other person. Do not drink alcohol while on narcotics. 5. Take stool softeners (Colace) or a water based laxative (Miralax) while taking narcotics. You may hold for loose stools. 6. Report any fevers greater than 100.5F, increase abdominal discomfort, drainage that looks like pus, increased redness or pain at the surgical site, or any vomiting. 7. Report any pain in the calves, shortness of breath, or rapid heartbeat. 8. Follow-up in the office as directed. 9. If you were prescribed antibiotics, do not stop them without talking to your provider. Referrals: Zuleyma Hills, RENZO [Primary Care Provider] - <Romel Eastman - Last Filed: 08/03/18 10:37> Date of Encounter: 08/03/18 - Assessment and Plan (1) Inguinal hernia with incarceration Current Visit: Yes Status: Acute Objective Vital Signs - Last 8 Hours Temp Pulse Resp BP Pulse Ox 08/03/18 05:37 97.9 F 77 14 133/75 98 Intake and Output 08/02/18 08/03/18 08/03/18 23:59 07:59 15:59 Intake Total 100 / 100 100 / 100 Output Total 600 / 600 Balance 100 / 100 -500 / -500 Intake: IV Fluids 100 / 100 100 / 100 Flagyl Premix 500 MG/100 ML 500 100 / 100 100 / 100 mg In 100 ml @ 100 mls/hr IVPB Q8HR [facility] Rx#:[id number] Output: Urine 200 / 200 Stool 400 / 400 Other: Meal Breakfast Percent of Meal Consumed 15% Stool Consistency liquid Stool Color Brown # Urine Diapers 1 - Labs 08/03/18 07:48 08/03/18 07:48 Diabetes panel 08/03/18 Range/Units 07:48 Sodium 138 (136-145) mEq/L Potassium 3.4 L (3.5-5.1) mEq/L Chloride 104 (98-107) mEq/L Carbon Dioxide 28 (23-29) mEq/L BUN 13 (8-23) mg/dL Creatinine 0.45 L (0.60-1.20) mg/dL Glucose 102 (70-105) mg/dL Calcium 8.0 L (8.6-10.3) mg/dL Calcium panel 08/03/18 Range/Units 07:48 Calcium 8.0 L (8.6-10.3) mg/dL Pituitary panel 08/03/18 Range/Units 07:48 Sodium 138 (136-145) mEq/L Potassium 3.4 L (3.5-5.1) mEq/L Chloride 104 (98-107) mEq/L Carbon Dioxide 28 (23-29) mEq/L BUN 13 (8-23) mg/dL Creatinine 0.45 L (0.60-1.20) mg/dL Glucose 102 (70-105) mg/dL Calcium 8.0 L (8.6-10.3) mg/dL Adrenal panel 08/03/18 Range/Units 07:48 Sodium 138 (136-145) mEq/L Potassium 3.4 L (3.5-5.1) mEq/L Chloride 104 (98-107) mEq/L Carbon Dioxide 28 (23-29) mEq/L BUN 13 (8-23) mg/dL Creatinine 0.45 L (0.60-1.20) mg/dL Glucose 102 (70-105) mg/dL Calcium 8.0 L (8.6-10.3) mg/dL - Attending Attestation patient seen and examined. i have reviewed all labs, imaging, and notes. i have discussed with the resident in detail concerning the plan. i agree with the above assessment and plan.
[2018-08-02] MEDS: Tetrahydrozoline 15 ML BOTTLE RIGHT EYE PRN (18:07)
[2018-08-03] MEDS: MetroNIDAZOLE 500 MG/100 ML 500 MG/100 ML BAG IVPB SCH ×2 (00:35→08:51)
[2018-08-03] MEDS: *HR* Heparin 5,000 UNIT/ML VIAL SQ SCH (05:32)
[2018-08-03 05:39] VITALS: BP 133/75
[2018-08-03 08:34] LABS: Basophils % 0.1 %; Eosinophils # 0.1 K/mcL (0.0-0.6); Eosinophils % 0.8 %; Hematocrit 22.5 % (35.3-44.9); Hemoglobin 7.3 g/dL (11.5-15.4); Immature Granulocytes % 0.6 % (0-4); Lymphocytes # 1.2 K/mcL (0.6-4.6); Lymphocytes % 14.9 %; Mean Corpuscular HGB Conc 32.4 g/dL (31.6-35.5); Mean Corpuscular Hemoglobin 29.1 pg (28.0-33.3); Mean Corpuscular Volume 89.6 fL (83.0-100.0); Monocytes # 0.6 K/mcL (0.0-1.3); Monocytes % 7.2 %; Neutrophils # 6.1 K/mcL (1.6-8.9); Platelet Count 330 K/mcL (140-400); Red Blood Count 2.51 M/mcL (3.82-4.97); Red Cell Distribution Width 17.1 % (11.5-14.5); Segmented Neutrophils % 76.4 %
[2018-08-03 08:52] LABS: BUN/Creatinine Ratio 29 (6-26); Blood Urea Nitrogen 13 mg/dL (8-23); Carbon Dioxide 28 mEq/L (23-29); Chloride 104 mEq/L (98-107); Glucose 102 mg/dL (70-105); Osmolality,Calculated 286 (280-300); Potassium 3.4 mEq/L (3.5-5.1); Sodium 138 mEq/L (136-145); eGFR For Non-African Americans > 60 (> 60)
[2018-08-03] MEDS ORDERED: amLODIPine 5 MG TABLET PO SCH (09:00)
[2018-08-03] MEDS ORDERED: Levofloxacin 750 MG/150 ML 750 MG/150 ML BAG IVPB SCH (09:00)
--- NOTE | 2018-08-03 09:13 | Discharge Summary ---
<Nuvia Dempsey - Last Filed: 08/03/18 13:03> Orders not resulted at time of discharge: Pending orders 07/24/18 01:15 Culture,Anaerobic [] Routine 07/24/18 02:03 US anesthesia pain block [US] Routine Date of Encounter: 08/03/18 Time of Encounter: 06:50 - Discharge Diagnosis (1) Diverticulitis of colon with perforation Priority: Primary Status: Acute Qualifiers: Diverticulitis bleeding: unspecified bleeding status Qualified Code(s): K57.20 - Diverticulitis of large intestine with perforation and abscess without bleeding (2) Confusion Priority: Secondary Status: Acute (3) Severe protein-calorie malnutrition Priority: Primary Status: Acute General Surgery Exam Initial Vital Signs Temp Pulse Resp BP Pulse Ox 98.6 F 83 18 116/68 98 07/23/18 15:17 07/23/18 15:17 07/23/18 15:17 07/23/18 15:17 07/23/18 15:17 - Additional Findings VITAL SIGNS: Reviewed. See [facility] GENERAL: In no apparent distress. HEENT: Normocephalic, atraumatic, pupils are equal and reactive, extraocular motions intact, oral mucosa pink and moist. CHEST/RESPIRATORY: The thorax is free from signs of trauma. Lung sounds: clear to auscultation, normal respiratory effort CARDIAC: Regular rate and rhythm. Normal S1 and S2, without murmurs, gallops, or rubs. VASCULAR: No edema. ABDOMEN: Soft. Nondistended. Nontender. Bowel sounds present. Colostomy site is pink and moist. Colostomy bag contains gas and yellow stool. INCISION: Incision sites are clean, dry, and intact. There is no sign of cellulitis or infection. MUSCULOSKELETAL: Good range of motion of all major joints. Extremities without clubbing or cyanosis. NEUROLOGIC EXAM: Alert and oriented x 3. Speech normal. Follows commands. PSYCHIATRIC: Mood normal. SKIN: No rash or lesions. - Hospital Course Hospital course: Ms. Thaeyr is a 72 year old female with past medical history of CVA, GA, HTN, HLD, COPD, diverticulitis. Patient presented to ER on 07/23/18 for worsening abdominal pain at left groin. Upon presentation, patient was afebrile and vitals were stable. Labs showed leukocytosis at 14.7. CT abd/pelvis showed concern for incarcerated inguinal hernia. Patient went to exploratory laparotomy on 07/24/18 which showed perforated diverticulitis with abscess. Sigmoidectomy was performed with colost souleymane creation. During hospitalization, patient developed confusion. No prior history of confusion. Cardiac workup was negative. UA was negative. CXR and CT head were negative. Patient had fall and sitter was placed. XR thoracic and lumbar spine were negative. Nurse and sitter reported patient had not slept in 2-3 days. Home klonapin for anxiety was restarted. Nurse reports that patient is much better. States shes alert and oriented. Reports shes now sleeping well. Has been without sitter for 24 hours. Patient states that shes great. Denies abdominal pain, nausea/vomiting, or fever. Denie s any other complaints. - Time Spent with Patient Total time spent providing and/or coordinating discharge services: Greater than 30 minutes (42 minutes) - Discharge Medications Prescriptions: New Levofloxacin [Levaquin] 750 mg PO Q48H #3 tablet metroNIDAZOLE [Flagyl] 500 mg PO TID #15 tablet Continue RX: Atorvastatin [Lipitor] 40 mg PO DAILY RX: amLODIPine [Norvasc] 5 mg PO DAILY RX: Magnesium Oxide [Magnesium] 250 mg PO DAILY RX: Clopidogrel [Plavix] 75 mg PO DAILY RX: clonazePAM [Klonopin] 1 mg PO BID PRN PRN Reason: Anxiety RX: Atenolol [Tenormin] 25 mg PO DAILY RX: Nitroglycerin [Nitrostat] 0.4 mg SL Q5M PRN PRN Reason: Chest Pain RX: Potassium Chloride [K-Tab ER] 10 meq PO DAILY RX: Cholecalciferol (Vitamin D3) [Dialyvite Vitamin D] 5,000 unit PO DAILY Home Medications: RX: Atenolol [Tenormin] 25 mg PO DAILY 10/18/17 [History] RX: Atorvastatin [Lipitor] 40 mg PO DAILY 10/18/17 [History] RX: Clopidogrel [Plavix] 75 mg PO DAILY 10/18/17 [History] RX: Magnesium Oxide [Magnesium] 250 mg PO DAILY 10/18/17 [History] RX: Nitroglycerin [Nitrostat] 0.4 mg SL Q5M PRN 10/18/17 [History] RX: amLODIPine [Norvasc] 5 mg PO DAILY 10/18/17 [History] RX: clonazePAM [Klonopin] 1 mg PO BID PRN 10/18/17 [History] RX: Potassium Chloride [K-Tab ER] 10 meq PO DAILY 07/16/18 [History] RX: Cholecalciferol (Vitamin D3) [Dialyvite Vitamin D] 5,000 unit PO DAILY 07/23/18 [History] Levofloxacin [Levaquin] 750 mg PO Q48H #3 tablet 08/03/18 [Rx] metroNIDAZOLE [Flagyl] 500 mg PO TID #15 tablet 08/03/18 [Rx] Allergies/Adverse Reactions: Allergy/AdvReac Type Severity Reaction Status Date / Time codeine AdvReac Nausea Verified 07/16/18 12:15 Date of admission: 07/24/18 14:38 Primary care physician: Zuleyma Hills CNP Consults: 07/24/18 13:13 consult to web designer [Consult to Nutrition] [CONS] Stat Comment: Consulting Provider: NUTRITION Reason for Dietary Consult: TPN Start and Manage 07/24/18 13:28 Consult to Invasive Line Access Team [CONS] Routine Reason for Consult: placment of PICC line for TPN Line Type: PICC Consult to Wound Care [CONS] Routine Reason for Consult: ostomy teaching Call Completed: Yes 07/25/18 08:00 Consult to Occupational Therapy [CONS] Routine Comment: Evaluate, develop and implement POC Reason for Consult: Mobilization and d.c. planning Does patient have active BEDREST order?: No Is patient medically & hemodynamically stable?: Yes Patient assessed for mobility or mobilized this visit?: No Consult to Physical Therapy [CONS] Routine Comment: Evaluate, develop and implement POC Reason for Consult: Mobilization and d.c. planning Does patient have active BEDREST order?: No Is patient medically & hemodynamically stable?: Yes Patient assessed for mobility or mobilized this visit?: No Consult to Denitrator Operator [CONS] Routine Reason for SW Consult: placement vs C 08/01/18 08:00 Consult to Denitrator Operator [CONS] Routine Reason for SW Consult: Will need ECF placement; Patient confused and had a recent fall yesterday. Please talk with family. Discharging clinician: Romel Eastman Anticipated date of discharge: 08/03/18 Labs on day of discharge: Labs from last 24 hours 08/03/18 08/03/18 07:48 07:48 WBC 7.9 RBC 2.51 L Hgb 7.3 L Hct 22.5 L MCV 89.6 MCH 29.1 MCHC 32.4 RDW 17.1 H Plt Count 330 MPV 10.0 Immature Gran % 0.6 Seg Neutrophils % 76.4 Lymphocytes % 14.9 Monocytes % 7.2 Eosinophils % 0.8 Basophils % 0.1 Neutrophils # 6.1 Lymphocytes # 1.2 Monocytes # 0.6 Eosinophils # 0.1 Basophils # 0.0 Sodium 138 Potassium 3.4 L Chloride 104 Carbon Dioxide 28 BUN 13 Creatinine 0.45 L Est GFR ( Amer) > 60 Est GFR (Non-Af Amer) > 60 BUN/Creatinine Ratio 29 H Glucose 102 Calculated Osmolality 286 Calcium 8.0 L Preliminary micro results at discharge 07/24/18 01:15 Anaerobic Culture - Preliminary Abscess Anaerococcus prevotii Anaerococcus prevotii#2 Anaerobic Gram Positive Arvind - Impressions ITS Impressions Abdomen/Pelvis CT 07/23/18 17:15 IMPRESSION: Large left inguinal hernia containing a loop of colon, difficult to determine whether this is a loop of the sigmoid colon or the distal transverse low lying colon. There is focal dilation of colon in this location suggesting obstruction. Findings also concerning for strangulation given history of pain. Surgical consultation is recommended if not already performed. Additionally, delayed imaging with a CT of the abdomen and pelvis in 2 hours would be useful to evaluate for passage of the oral contrast. This could also re-evaluated whether the adjacent wall thickening in the sigmoid colon is due to collapse or colitis. Lesion of the superior pole right kidney increased in size concerning for malignancy. Follow-up is recommended. Consider urology consultation. Pre and post contrast renal mass protocol CT or MRI examination suggested. D/ / Colten Sanchez MD / Colten Sanchez MD Interpreting Provider: Colten Sanchez MD Head CT 07/31/18 04:00 IMPRESSION: No acute intracranial abnormality. Mild cerebral volume loss with chronic microvascular ischemic disease and remote right basal ganglial infarct. D/ / Sunny Kauffman / Sunny Kauffman Interpreting Provider: Sunny Kauffman Chest X-Ray 07/31/18 07:38 IMPRESSION: In this patient with COPD, ground-glass opacification at the left lung base may represent atelectasis or developing pneumonitis. D/ / Mejia Sloan MD / Mejia Sloan MD Interpreting Provider: Mejia Sloan MD Lumbar Spine X-Ray 08/02/18 14:26 IMPRESSION: 1. Significant decreased bone mineral density. 2. Stable remote T12 compression fracture with prior vertebroplasty. No acute thoracic fracture. 3. Stable remote L1 compression fracture with no acute lumbar spine fracture. 4. Multilevel lumbar spine degenerative changes and grade 1 anterolisthesis of L5 with respect to S1. D/ / 08/02/2018 15:21:08 Robert Kong MD / margie Interpreting Provider: Robert Kong MD Thoracic Spine X-Ray 08/02/18 14:29 IMPRESSION: 1. Significant decreased bone mineral density. 2. Stable remote T12 compression fracture with prior vertebroplasty. No acute thoracic fracture. 3. Stable remote L1 compression fracture with no acute lumbar spine fracture. 4. Multilevel lumbar spine degenerative changes and grade 1 anterolisthesis of L5 with respect to S1. D/ / 08/02/2018 15:21:08 Robert Kong MD / margie Interpreting Provider: Robert Kong MD - Patient Status Disposition: Transfer SNF Condition: Good - Discharge Instructions Instructions: Diverticulitis (DC), Colostomy Care (DC) Follow Up With: Zuleyma Hills CNP [Primary Care Provider] - 08/13/18 1:00 pm (Follow up as scheduled) Additional Instructions: General Surgical Discharge Instructions 1. No pushing, pulling, or lifting greater than 15 lbs for 2-4 weeks (depending upon procedure). 2. You may shower beginning today, but no tub baths, soaking, or swimming for 2 weeks. 3. You may resume driving when you are off narcotics and are safe to react in a car. 4. Take ibuprofen every 8 hours for discomfort. If this does not relieve discomfort, you may take the as needed Percocet. Take narcotics as directed. Do not take more narcotics then directed and do not share your narcotics with any other person. Do not drink alcohol while on narcotics. 5. Take stool softeners (Colace) or a water based laxative (Miralax) while taking narcotics. You may hold for loose stools. 6. Report any fevers greater than 100.5F, increase abdominal discomfort, drainage that looks like pus, increased redness or pain at the surgical site, or any vomiting. 7. Report any pain in the calves, shortness of breath, or rapid heartbeat. 8. Follow-up in the office as directed. 9. If you were prescribed antibiotics, do not stop them without talking to your provider. - Diet and Activity Activity: increase activity as tolerated Diet: advance to your usual diet <Romel Eastman - Last Filed: 08/03/18 15:12> Orders not resulted at time of discharge: Pending orders 07/24/18 01:15 Culture,Anaerobic [RM] Routine 07/24/18 02:03 US anesthesia pain block [US] Routine Date of Encounter: 08/03/18 - Discharge Diagnosis (1) Inguinal hernia with incarceration Status: Acute General Surgery Exam Initial Vital Signs Temp Pulse Resp BP Pulse Ox 98.6 F 83 18 116/68 98 07/23/18 15:17 07/23/18 15:17 07/23/18 15:17 07/23/18 15:17 07/23/18 15:17 - Hospital Course Hospital course: Ms. Thayer is a 72 year old female - Time Spent with Patient Total time spent providing and/or coordinating discharge services: Date of admission: 07/24/18 14:38 Primary care physician: Zuleyma Hills CNP Consults: 07/24/18 13:13 consult to web designer [Consult to Nutrition] [CONS] Stat Comment: Consulting Provider: NUTRITION Reason for Dietary Consult: TPN Start and Manage 07/24/18 13:28 Consult to Invasive Line Access Team [CONS] Routine Reason for Consult: placment of PICC line for TPN Line Type: PICC Consult to Wound Care [CONS] Routine Reason for Consult: ostomy teaching Call Completed: Yes 07/25/18 08:00 Consult to Occupational Therapy [CONS] Routine Comment: Evaluate, develop and implement POC Reason for Consult: Mobilization and d.c. planning Does patient have active BEDREST order?: No Is patient medically & hemodynamically stable?: Yes Patient assessed for mobility or mobilized this visit?: No Consult to Physical Therapy [CONS] Routine Comment: Evaluate, develop and implement POC Reason for Consult: Mobilization and d.c. planning Does patient have active BEDREST order?: No Is patient medically & hemodynamically stable?: Yes Patient assessed for mobility or mobilized this visit?: No Consult to Denitrator Operator [CONS] Routine Reason for SW Consult: placement vs HHC 08/01/18 08:00 Consult to Denitrator Operator [CONS] Routine Reason for SW Consult: Will need ECF placement; Patient confused and had a recent fall yesterday. Please talk with family. Labs on day of discharge: Labs from last 24 hours 08/03/18 08/03/18 07:48 07:48 WBC 7.9 RBC 2.51 L Hgb 7.3 L Hct 22.5 L MCV 89.6 MCH 29.1 MCHC 32.4 RDW 17.1 H Plt Count 330 MPV 10.0 Immature Gran % 0.6 Seg Neutrophils % 76.4 Lymphocytes % 14.9 Monocytes % 7.2 Eosinophils % 0.8 Basophils % 0.1 Neutrophils # 6.1 Lymphocytes # 1.2 Monocytes # 0.6 Eosinophils # 0.1 Basophils # 0.0 Sodium 138 Potassium 3.4 L Chloride 104 Carbon Dioxide 28 BUN 13 Creatinine 0.45 L Est GFR ( Amer) > 60 Est GFR (Non-Af Amer) > 60 BUN/Creatinine Ratio 29 H Glucose 102 Calculated Osmolality 286 Calcium 8.0 L Preliminary micro results at discharge 07/24/18 01:15 Anaerobic Culture - Preliminary Abscess Anaerococcus prevotii Anaerococcus prevotii#2 Anaerobic Gram Positive Arvind - Impressions ITS Impressions Abdomen/Pelvis CT 07/23/18 17:15 IMPRESSION: Large left inguinal hernia containing a loop of colon, difficult to determine whether this is a loop of the sigmoid colon or the distal transverse low lying colon. There is focal dilation of colon in this location suggesting obstruction. Findings also concerning for strangulation given history of pain. Surgical consultation is recommended if not already performed. Additionally, delayed imaging with a CT of the abdomen and pelvis in 2 hours would be useful to evaluate for passage of the oral contrast. This could also re-evaluated whether the adjacent wall thickening in the sigmoid colon is due to collapse or colitis. Lesion of the superior pole right kidney increased in size concerning for malignancy. Follow-up is recommended. Consider urology consultation. Pre and post contrast renal mass protocol CT or MRI examination suggested. D/ / Colten Sanchez MD / Colten Sanchez MD Interpreting Provider: Colten Sanchez MD Head CT 07/31/18 04:00 IMPRESSION: No acute intracranial abnormality. Mild cerebral volume loss with chronic microvascular ischemic disease and remote right basal ganglial infarct. D/ / Sunny Kauffman / Sunny Kauffman Interpreting Provider: Sunny Kauffman Chest X-Ray 07/31/18 07:38 IMPRESSION: In this patient with COPD, ground-glass opacification at the left lung base may represent atelectasis or developing pneumonitis. D/ / Mejia Sloan MD / Mejia Sloan MD Interpreting Provider: Mejia Sloan MD Lumbar Spine X-Ray 08/02/18 14:26 IMPRESSION: 1. Significant decreased bone mineral density. 2. Stable remote T12 compression fracture with prior vertebroplasty. No acute thoracic fracture. 3. Stable remote L1 compression fracture with no acute lumbar spine fracture. 4. Multilevel lumbar spine degenerative changes and grade 1 anterolisthesis of L5 with respect to S1. D/ / 08/02/2018 15:21:08 Robert Kong MD / margie Interpreting Provider: Robert Kong MD Thoracic Spine X-Ray 08/02/18 14:29 IMPRESSION: 1. Significant decreased bone mineral density. 2. Stable remote T12 compression fracture with prior vertebroplasty. No acute thoracic fracture. 3. Stable remote L1 compression fracture with no acute lumbar spine fracture. 4. Multilevel lumbar spine degenerative changes and grade 1 anterolisthesis of L5 with respect to S1. D/ / 08/02/2018 15:21:08 Robert Kong MD / margie Interpreting Provider: Robert Kong MD - Attending Attestation patient seen and examined. i have reviewed all labs, imaging, and notes. i have discussed the plan in detail with the resident. i agree with the above assessment and plan
[2018-08-03] MEDS ORDERED: metroNIDAZOLE 500 MG TABLET PO SCH (09:30)
[2018-08-03] MEDS ORDERED: levoFLOXacin 750 MG TABLET PO SCH (09:30)
[2018-08-03] MEDS: Pantoprazole 40 MG VIAL IVP SCH (09:40)
--- NOTE | 2018-08-03 10:43 | Physician Discharge Referral ---
<Nuvia Dempsey - Last Filed: 08/03/18 13:05> ExtendedCare Referral Info Transfer To: [facility] Provider in Charge after Transfer: PCP - Diagnosis (1) Diverticulitis of colon with perforation Status: Acute (2) Confusion Status: Acute (3) Severe protein-calorie malnutrition Status: Acute - Transfer Medications Prescriptions: Levofloxacin [Levaquin] 750 mg PO Q48H #3 tablet metroNIDAZOLE [Flagyl] 500 mg PO TID #15 tablet Home Medications: RX: Atenolol [Tenormin] 25 mg PO DAILY 10/18/17 [History] RX: Atorvastatin [Lipitor] 40 mg PO DAILY 10/18/17 [History] RX: Clopidogrel [Plavix] 75 mg PO DAILY 10/18/17 [History] RX: Magnesium Oxide [Magnesium] 250 mg PO DAILY 10/18/17 [History] RX: Nitroglycerin [Nitrostat] 0.4 mg SL Q5M PRN 10/18/17 [History] RX: amLODIPine [Norvasc] 5 mg PO DAILY 10/18/17 [History] RX: clonazePAM [Klonopin] 1 mg PO BID PRN 10/18/17 [History] RX: Potassium Chloride [K-Tab ER] 10 meq PO DAILY 07/16/18 [History] RX: Cholecalciferol (Vitamin D3) [Dialyvite Vitamin D] 5,000 unit PO DAILY 07/23/18 [History] Levofloxacin [Levaquin] 750 mg PO Q48H #3 tablet 08/03/18 [Rx] metroNIDAZOLE [Flagyl] 500 mg PO TID #15 tablet 08/03/18 [Rx] Allergies/Adverse Reactions: Allergy/AdvReac Type Severity Reaction Status Date / Time codeine AdvReac Nausea Verified 07/16/18 12:15 - Respiratory Orders Smoking Cessation: Smoking cessation has been advised. For more information, call the [place] Tobacco Quit Line at 0-233-DSUO-NOW. CERTIFICATION: I certify that the transfer of the above named patient to an Extended Care Facility is necessary for the continuing treatment of the diagnosis listed. The above information is true and accurate reflection of patient's current condition. Confidential - Redisclosure prohibited without a patient's written consent. <Romel Eastman - Last Filed: 08/03/18 15:12> - Diagnosis (1) Inguinal hernia with incarceration Status: Acute - Respiratory Orders Smoking Cessation: Smoking cessation has been advised. For more information, call the [place] Tobacco Quit Line at 5-299-NUXG-NOW. CERTIFICATION: I certify that the transfer of the above named patient to an Extended Care Facility is necessary for the continuing treatment of the diagnosis listed. The above information is true and accurate reflection of patient's current condition. Confidential - Redisclosure prohibited without a patient's written consent.
[2018-08-03] MEDS: Tetrahydrozoline 15 ML BOTTLE RIGHT EYE PRN (11:18)
== END 2018-08-03 13:02 | DRG 231 ==
LOC: EMEROOARM 14:53 → 3ANU 14:53 → 3BNU 19:59 → ICNU 07-24 04:11 → 3ANU 07-26 14:27
PROVIDERS: ADMIT Surgery; ATTEND Surgery

== ENCOUNTER 2018-08-05 13:46 | Observation (INO) ==
[2018-08-05] MEDS ORDERED: Acetaminophen 325 MG TABLET PO PRN (15:59)
[2018-08-05] MEDS ORDERED: Naloxone 0.4 MG/ML INJ IVP PRN (15:59)
[2018-08-05] MEDS ORDERED: *HR* LORazepam 2 MG/ML VIAL IVP PRN (16:03)
--- NOTE | 2018-08-05 16:10 | Internal Med History&Physical ---
Date of Encounter: 08/05/18 Time of Encounter: 16:10 Internal Medicine - H&P: HPI Chief complaint: New-onset seizures Admitted From: Emergency Dept Plans for Post Hospital Care: Home History of present illness: Ms. Thayer is a 72 year old female patient who was discharged from the hospital 2 days back to intermediate following surgery for diverticulitis with perforation resulting in colostomy presented to the ER at [facility] with complaints of seizures. She had apparently had seizure-like activity at the intermediate and then had 3-4 episodes of generalized tonic-clonic seizures while in the ER. She was started on IV Keppra 500 mg and since then she has not had any further seizures. At this time she is lying in bed and appears to be comfortable. She denies any tongue bite. She complains of mild abdominal pain related to her surgery. No fevers or chills reported. Patient had been discharged on Levaquin and Flagyl to complete 5 day treatment course. She has been tolerating diet well. Past Med Surg Social Fam HX - Past Medical History Attestation: Yes The following information was validated with the patient. Source: patient Medical history: COPD, CVA, hyperlipidemia, hypertension Additional medical history: Cardiac caths, CVA, Cholecystectomy, diverticulitis,Gerd,HTN, [place], Sinusitis Psychiatric history: no psych history - Past Surgical History Additional surgical history: Left hip sx, kyphoplasty - Social History Smoking Status: Current every day smoker Smokeless Tobacco Status: No Alcohol use: none Drug use: none - Family History Mother Hx Family Cardiac Disorders: Yes Father Hx Family Cardiac Disorders: Yes Internal Medicine - H&P: Meds Atenolol [Tenormin] 25 mg PO DAILY 10/18/17 [History] Atorvastatin [Lipitor] 40 mg PO DAILY 10/18/17 [History] Clopidogrel [Plavix] 75 mg PO DAILY 10/18/17 [History] Magnesium Oxide [Magnesium] 250 mg PO DAILY 10/18/17 [History] Nitroglycerin [Nitrostat] 0.4 mg SL Q5M PRN 10/18/17 [History] amLODIPine [Norvasc] 5 mg PO DAILY 10/18/17 [History] clonazePAM [Klonopin] 1 mg PO BID PRN 10/18/17 [History] Potassium Chloride [K-Tab ER] 10 meq PO DAILY 07/16/18 [History] Cholecalciferol (Vitamin D3) [Dialyvite Vitamin D] 5,000 unit PO DAILY 07/23/18 [History] Levofloxacin [Levaquin] 750 mg PO Q48H #3 tablet 08/03/18 [Rx] metroNIDAZOLE [Flagyl] 500 mg PO TID #15 tablet 08/03/18 [Rx] Allergy/AdvReac Type Severity Reaction Status Date / Time codeine AdvReac Nausea Verified 07/16/18 12:15 All Systems PM: A 10-system review of systems was performed and is negative for pertinent findings except as documented above in the HPI. - Constitutional Constitutional: no chills, no fever(s), no night sweats - EENT Eyes: no change in vision, no discharge, no pain, no photophobia Ears: no ear discharge, no ear pain, no tinnitus Nose, mouth and throat: no dysphagia, no nasal discharge, no neck pain, no sore throat - Cardiovascular Cardiovascular ROS IM: no chest pain, no diaphoresis, no dyspnea, no lightheadedness, no palpitations, no syncope - Respiratory Respiratory: no cough, no dyspnea, no wheezing, no excessive phlegm production - Gastrointestinal Gastrointestinal: no abdominal pain, no diarrhea, no hematemesis, no hematochezia, no melena, no nausea, no vomiting - Genitourinary Genitourinary: no change in urinary stream, no dysuria, no flank pain, no hematuria - Musculoskeletal Musculoskeletal ROS IM: no numbness, no tingling - Integumentary Integumentary IM: no rash, no unusual bruising - Neurological Neurological ROS: convulsions, no confusion, no focal weakness, no numbness, no tingling, no tremor(s) - Hematologic/Lymphatic Hematologic/Lymphatic: no easy bruising - Constitutional General appearance: Present: cooperative, A&O X 3, pleasant, underweight, answers questions appropriately Exam: General: Patient is alert, , underweight, oriented x 3 Head: atraumatic, normocephalic, ENT: Mucous membranes moist Eye: normal appearance, PERRL, no scleral icterus, no conjunctival injection Neck: normal inspection, trachea midline, full ROM, no carotid bruits Respiratory: Good respiratory effort. Normal breath sounds. No wheezing or crackles. Cardiovascular: Regular rate and rhythm. s1 and s2 normal No clicks, rubs, gallops, or murmurs. No pedal edema Abdomen: Abdomen is soft, mildly tender at surgical site. Surgical incision appears clean. [place] in place. Colostomy in place. Bowel sounds are present Musculoskeletal: Spontaneously moving all extremities Skin: warm, dry, intact. Neuro: Alert oriented x 3 normal cranial nerves, no focal deficits Psych: Patient's affect is normal Internal Med - H&P Results - Impressions CT of the head showed a possible old lacunar infarct - Assessment and Plan (1) Seizures Current Visit: Yes Status: Acute Assessment and plan: Patient with new onset generalized tonic-clonic seizures. Etiology uncertain. Consult neurology. Seizure precautions. Continue Keppra 500 mg IV twice a day. Will obtain EEG and MRI to continue workup. Patient has been on Levaquin which can decrease seizure threshold. We will stop this medication. We will place her on Omnicef instead. (2) CAD (coronary artery disease) Current Visit: Yes Status: Chronic Assessment and plan: Patient with history of coronary artery disease. On Plavix, Lipitor. We will continue Qualifiers: Coronary Disease-Associated Artery/Lesion type: unspecified vessel or lesion type Associated angina: angina presence unspecified Qualified Code(s): I25.10 - Atherosclerotic heart disease of [place] coronary artery without angina pectoris (3) HTN (hypertension) Current Visit: Yes Status: Chronic Assessment and plan: continue amlodipine Qualifiers: Hypertension type: essential hypertension Qualified Code(s): I10 - Essential (primary) hypertension (4) Severe protein-calorie malnutrition Current Visit: Yes Status: Chronic Assessment and plan: Patient with severe protein calorie malnutrition. Status post recent surgery. We will consult nutrition to help with diet. (5) Anemia Current Visit: Yes Status: Chronic Assessment and plan: Patient has chronic anemia. Could be related to nutritional deficiency in setting of recent abdominal surgery. We will monitor blood counts closely. We will check iron, folic acid B12 levels Qualifiers: Anemia type: unspecified type Qualified Code(s): D64.9 - Anemia, unspecified - Time Spent With Patient Total time spent is greater than 50% in coordination of care (as documented) at patient's floor/unit and/or counseling patient:
--- NOTE | 2018-08-05 16:59 | Neurology - Consult Note ---
Date of Encounter: 08/05/18 Time of Encounter: 16:55 Assessment and Plan (1) Seizures Current Visit: Yes Status: Acute Patient was admitted secondary to what may have been a generalized tonic-clonic seizure. At this time she seems to be back to her baseline status of function. She does have some motor apraxia, which leads me to suspect that she may have a prior history of dementia. She did have a previous right basal ganglia infarct which may be the cause of her left upper and lower extremity weakness. However since she had a seizure I would like to do an MRI scan of the brain to make sure that we are not dealing with another reason to explain it. We also need to consider the possibility of metabolic derangement at this time I do not have any lab work available. She is not febrile encephalopathic at this time. She has been loaded with levetiracetam and which we will maintain at this time. Further recommendations will be made pending the outcome of the MRI scan of the brain along with EEG testing. We will also obtain baseline lab work. Critical care time spent with this patient today was 45 minutes. This consisted of counseling family does the patient and coordinating care. History of Present Illness HPI: Chart was reviewed, the patient was seen in [id number] and examined the. Ms. Thayer is a 72 year old female who was seen in the intensive care unit at the request of the internists secondary to seizure activity. She is actually here in the hospital about 2 weeks or so ago and had partial bowel resection resulting in colostomy secondary to diverticulitis with perforation. Apparently she was just discharged 2 days ago [facility] to an extended care facility. Apparently she experienced what was felt that then generalized tonic-clonic seizure at the detention and was sent to [facility] emergency room. She had further episodes of seizure while was transferred here to [facility] for further assessment. Currently she is awake and alert but does have some motor apraxia on exam. MRI scan of the brain is pending. I did review a CT scan of the brain which was obtained on 07/31/2018 which does reveal some cortical atrophy as well as a chronic infarct in the right basal ganglia. Past Med Surg Social Fam HX - Past Medical History Medical history: COPD, CVA, hyperlipidemia, hypertension Additional medical history: Cardiac caths, CVA, Cholecystectomy,diverticulitis,Gerd,HTN, [place], Sinusitis Psychiatric history: no psych history - Past Surgical History Additional surgical history: Left hip sx, kyphoplasty - Social History Smoking Status: Current every day smoker Smokeless Tobacco Status: No Alcohol use: none Drug use: none - Family History Mother Hx Family Cardiac Disorders: Yes Father Hx Family Cardiac Disorders: Yes Medications and Allergies Atenolol [Tenormin] 25 mg PO DAILY 10/18/17 [History] Atorvastatin [Lipitor] 40 mg PO DAILY 10/18/17 [History] Clopidogrel [Plavix] 75 mg PO DAILY 10/18/17 [History] Magnesium Oxide [Magnesium] 250 mg PO DAILY 10/18/17 [History] Nitroglycerin [Nitrostat] 0.4 mg SL Q5M PRN 10/18/17 [History] amLODIPine [Norvasc] 5 mg PO DAILY 10/18/17 [History] clonazePAM [Klonopin] 1 mg PO BID PRN 10/18/17 [History] Potassium Chloride [K-Tab ER] 10 meq PO DAILY 07/16/18 [History] Cholecalciferol (Vitamin D3) [Dialyvite Vitamin D] 5,000 unit PO DAILY 07/23/18 [History] Levofloxacin [Levaquin] 750 mg PO Q48H #3 tablet 08/03/18 [Rx] metroNIDAZOLE [Flagyl] 500 mg PO TID #15 tablet 08/03/18 [Rx] Allergy/AdvReac Type Severity Reaction Status Date / Time codeine AdvReac Nausea Verified 07/16/18 12:15 All Systems: The remainder of the systems were reviewed and are negative Review of Systems: The balance of the systems review is negative. Physical Examination - Exam Exam: General Examination: *CONSTITUTIONAL: Patient cachectic however awake and alert and in no acute distress. *EYES: pupils equal, round, reactive to light and accommodation, conjunctiva clear without masses or ulcerations, fundi normal. *CARDIOVASCULAR no peripheral edema, distal temperature normal, dorsalis pedis pulses normal. Refer to vital signs Musculoskeletal: *GAIT AND STATION gait not assessed *ASSESSMENT OF MUSCLE STRENGTH IN THE UPPER AND LOWER EXTREMITIES left deltoid strength 4/5, left biceps strength 4/5 left triceps and java web services developer 4/5, left lower extremity strength 4/5. She has normal strength of the right upper and right lower extremities. Overall however she is very frail. *MUSCLE TONE IN THE UPPER AND LOWER EXTREMITIES normal. No abnormal movements, fasciculations or atrophy identified. Neurological: *ORIENTATION to time and place *RECURRENT AND REMOTE MEMORY intact *ATTENTION AND CONCENTRATION she does seem to have some motor apraxia which leads me to suspect she may have a baseline dementia. But she is aware of her location the day date and month. She knows the year is 2019. *LANGUAGE FUNCTION no significant aphasia or dysarthia was noted. *FUND OF KNOWLEDGE aware of current events, past history, vocabulary *MENTAL attention span and concentration normal. *CN II optic fundi were normal, no papilledema noted. *CN III,IV, PERRLA extraocular eye movements were full, no nystagmus and no ptosis noted. *CN V shows normal sensation and jaw opens symmetrically. *CN VII shows normal facial movement symmetrically, upper and lower bilaterally. *CN VIII shows no significant hearing loss on examination in the office. *CN IX,,X palate elevated symmetrically and normal gag reflex was noted. *CN XI normal strength in the sternocleidomastoid muscles, symmetrical shoulder shrugging. *CN XII tongue protruded in the midline, with normal strength and movement. *SENSORY EXAMINATION pinprick sensation intact, and light touch(vibration sense). *REFLEXES: deep tendon reflexes were normal and symmetrical , grade 2/4 diffusely, no pathological reflexes were noted. *CEREBELLAR TESTING normal finger to nose, heel/knee/monae. *PAIN LEVEL Consult Discharge Plan - Plan Referrals: Zuleyma Hills, MATERIAL CONTROLLER [Primary Care Provider] -
[2018-08-05] MEDS: metroNIDAZOLE 500 MG TABLET PO SCH ×2 (17:46→20:44)
[2018-08-05 20:58] VITALS: BP 129/70
[2018-08-05] MEDS ORDERED: Cefdinir 300 MG CAPSULE PO SCH (21:00)
--- NOTE | 2018-08-05 21:03 | Event Note ---
Date of Encounter: 08/05/18 Time of Encounter: 20:54 I was called by nursing staff around 7:30 PM regarding MRI results and plan of care. She was admitted earlier in the daytime by the primary admitting team. I reviewed the chart and notes as well as MRI results. I then met with patient and family. I explained the findings on MRI to the family, in particular, the possibility of a chronic subdural hematoma. In the setting of acute new onset seizures, this worries me that it may be of significance and may eventually need neurosurgical intervention. Family agreed and requested transfer to [facility] where she was cared for previously for a stroke about 2 years ago. I therefore contacted [facility] and spoke with the transfer center nurse. He coordinated transfer and spoke with Dr. Jiménez (neurosurgery) who accepted the patient in transfer. She will be transferred to [facility] ER for an acute neurologic and neurosurgical assessment and possible need for further testing. At that point, patient will be assigned a bed, and she will be admitted to the neurosurgical service for further management. Once I received confirmation from the transfer center, I discussed with patient and family and they are in agreement and acceptance of plan. We are now coordinating transfer to [facility] with appropriate transport team. Reason for transfer: New onset seizures with possible/probable chronic subdural hematoma needing neurosurgical evaluation; family request Accepting facility: [facility] Accepting physician: Dr. Jiménez
== END 2018-08-05 21:58 | disposition other institution (70) ==
LOC: ICNU
PROVIDERS: ADMIT Internal Medicine; ATTEND Internal Medicine